=== PATIENT | male | born 1945 | race Caucasian/White ===

== ENCOUNTER 2020-05-05 14:36 | Outpatient (REF) | payer OTHER, SELFPAY ==
[2020-05-07 20:10] LABS: SARS-CoV-2 RNA Undetected (Undetected); SARS-CoV-2 Specimen Source Nasal
== END 2020-05-05 14:56 ==
LOC: NCHCN 14:36
PROVIDERS: Visit Provider Nurse Practitioner Family
DX: Z11.59 Encounter for screening for other viral diseases (principal)
CPT/HCPCS: U0003

== ENCOUNTER 2020-06-17 10:57 | Emergency (ER) | payer OTHER, SELFPAY ==
[2020-06-17] VITALS (23 sets, daily range): BP systolic 114–141; BP diastolic 53–75; PULSE 59–74; RESP 8–21; TEMP 36.6; O2SAT 96–99
--- NOTE | 2020-06-17 11:00 | RT.EKG_ITS ---
APPROVED REPORT Exam: Resting ECG Patient Location: E HR:64 bpm ECG Measurements Heart Rate 64 AXIS WA 33 P 0 QRSd 129 QRS 179 QT 435 T 96 QTc 449 Conclusion A-V dual-paced complexes w/ some inhibition...other complexes also detected Biventricular paced rhythm...non-simultaneous bi-vent pacing I have reviewed and interpreted ECG and agree with software generated interpretation.
--- NOTE | 2020-06-17 11:50 | ED.GENADUL_ITS ---
Discharge Plan Disposition Patient Disposition: [facility] Condition: Stable Discharge Details Chief Complaint: Palpitatns Clinical Impression: Ventricular fibrillation Primary Care Provider: Fabiola,Local ED Provider: Philip Harrison Home Meds and New Rx's Prescriptions: No Action metformin 500 mg Tablet 500 mg PO BID RF: 0 aspirin 325 mg Tablet 325 mg PO DAILY RF: 0 metoprolol succinate 50 mg Tablet Extended Release 24 Hr 75 mg PO DAILY RF: 0 losartan 25 mg Tablet 25 mg PO DAILY RF: 0 docusate sodium [Colace] 100 mg Capsule 100 mg PO DAILY RF: 0 isosorbide mononitrate 10 mg Tablet 15 mg PO DAILY RF: 0 coenzyme Q10 [Co Q-10] 100 mg Capsule 100 mg PO DAILY RF: 0 rosuvastatin [Crestor] 10 mg Tablet 10 mg PO DAILY RF: 0 Lovasa 1 BID RF: 0 Medical Decision Making 75-year-old gentleman presents at the request of his cardiology team in [place] because over the past week he has gone into V. fib twice requiring a by phasic shock from his dual pacemaker-defibrillator. He was asymptomatic when this happened, only felt the machine fire 1 time. He denies any chest pain whatsoever. He is currently asymptomatic. He appears well, nontoxic and is hemodynamically stable. Will initiate cardiac work-up and [facility] to discuss his case and potential transfer. I discussed the case with Sarah Singletary at 1210, cardiology transfer team. She will discuss the presentation with the rest of the cardiology team, await his troponin and electrolytes, and we will talk again. Laboratories resulted and were unremarkable. I once again spoke with Sarah Singletary at 1315. She states that she spoke with the color tester, Dr. Mathur, and he believes the patient should be transferred into their care for an ischemic work-up. The accepting physician will be Dr. Manriquez. All appropriate transfer paperwork completed. Patient remains hemodynamically stable and asymptomatic while under my care. Medical Records Medical records reviewed: Yes I reviewed the patient's medical records. Lab Data Lab results reviewed: Yes I reviewed the patient's lab results. Lab results narrative: Laboratory Tests Range/Units 06/17/20 06/17/20 06/17/20 12:00 12:00 12:00 WBC (4.4-10.8) 10^3/uL 6.59 RBC (4.36-5.78) 10^6/uL 4.43 Hgb (13.5-17.5) g/dL 14.0 Hct (40.0-50.0) % 40.7 MCV (80-95) fL 91.9 MCH (27.0-33.0) pg 31.6 MCHC (32.0-36.0) % 34.4 RDW (11.8-14.1) % 12.5 Plt Count (130-400) 10^3/uL 215 MPV (8.0-11.0) fL 10.3 Immature Gran % 0.5 Neutrophils % 67.9 Lymphocytes % 22.0 Monocytes % 6.4 Eosinophils % 2.4 Basophils % 0.8 Nucleated RBC % % 0 Absolute Neutrophils (1.2-6.7) 10^3/uL 4.48 Absolute Lymphocytes (1.2-3.4) 10^3/uL 1.45 Absolute Monocytes (0.1-0.8) 10^3/uL 0.42 Absolute Eosinophils (0.0-0.7) 10^3/uL 0.16 Absolute Basophils (0.0-0.2) 10^3/uL 0.05 PT (9.3-11.0) sec 10.5 INR (0.9-1.1) 1.0 APTT (21.0-27.5) sec 23.4 Sodium (136-145) mmol/L 136 Potassium (3.5-5.1) mmol/L 4.2 Chloride (98-107) mmol/L 103 Carbon Dioxide (21.0-32.0) mmol/L 28.5 Anion Gap (3-11) mmol/L 4.5 BUN (7-18) mg/dL 16 Creatinine (0.70-1.30) mg/dL 0.88 Estimated GFR/1.73 m2 (mL/min/1.73m2) >= 60.00 Glucose (74-106) mg/dL 151 H Calcium (8.5-10.1) mg/dL 8.6 Magnesium (1.8-2.4) mg/dL 1.8 Total Bilirubin (0.2-1.0) mg/dL 0.8 AST (15-37) U/L 20 ALT (16-63) U/L 21 Alkaline Phosphatase (46-116) U/L 42 L Troponin I (<0.06) ng/mL < 0.05 Total Protein (6.4-8.2) g/dL 6.9 Albumin (3.4-5.0) g/dL 3.7 ECG Data Attestation: I personally reviewed and interpreted this ECG (s) as follows: Interpretation: Please see official report by Dr. Pickens. AV dual paced complexes. Ventricular to 64. No STEMI. HPI General Mode of arrival: ambulatory . Date/Time Provider Initiated Documentation: 06/17/20 11:16 . Limitations to Documentation: no limitations . Information obtained by: patient . HPI Narrative: This is a 75-year-old gentleman, past medical history of diabetes, CAD, bypass x2, cardiac pacemaker- defibrillator placed approximately 10 years ago. He received a call from his cardiology team down in [place] who recommended that he go to the nearest ER because his pacemaker fired on June 12 and June 15. He states that he noticed the defibrillator on June 12 but not on June 15. He is currently asymptomatic. He states that prior to the defibrillation on the he was asymptomatic. He denies recent illness or trauma. Denies fever, neck pain, chest pain, shortness of breath, abdominal pain, nausea, vomiting, numbness, tingling, weakness. Related Data Home Medications Medication Instructions Recorded Confirmed Lovasa 1 BID 06/17/20 aspirin 325 mg PO DAILY 06/17/20 06/17/20 coenzyme Q10 [Co Q-10] 100 mg PO DAILY 06/17/20 06/17/20 docusate sodium [Colace] 100 mg PO DAILY 06/17/20 06/17/20 isosorbide mononitrate 15 mg PO DAILY 06/17/20 06/17/20 losartan 25 mg PO DAILY 06/17/20 06/17/20 metformin 500 mg PO BID 06/17/20 06/17/20 metoprolol succinate 75 mg PO DAILY 06/17/20 06/17/20 rosuvastatin [Crestor] 10 mg PO DAILY 06/17/20 06/17/20 Allergies Allergy/AdvReac Type Severity Reaction Status Date / Time No Known Allergies Allergy Unverified 06/17/20 11:15 General Stated Complaint: Palpitatns RAJESH: 2 Review of Systems Constitutional Constitutional: Denies fever(s), Denies headache(s) and Denies weakness ENT Ears, Nose, Mouth, and Throat: Denies headache(s) and Denies neck pain Cardiovascular Cardiovascular: Denies chest pain and Denies dyspnea Respiratory Respiratory: Denies cough and Denies dyspnea Gastrointestinal Gastrointestinal: Denies abdominal pain, Denies nausea and Denies vomiting Musculoskeletal Musculoskeletal: Denies back pain, Denies neck pain, Denies numbness and Denies tingling Integumentary/Breasts Skin/Breast: Denies rash Neurologic Neurologic: Denies headache(s), Denies numbness, Denies tingling and Denies weakness [facility] Social History Smoking/Tobacco Use Status: Never Smoking risk assessment performed?: Yes Alcohol Intake: never Substance use type: does not use Exam Const General: cooperative, healthy appearing, comfortable and no acute distress Orientation: alert, awake and oriented x3 HENMT Head: normal to inspection, normocephalic and atraumatic Eyes General: appearance normal, both eyes and all related structures Conjunctivae: conjunctivae normal Sclera: sclerae normal Neck Neck: normal visual inspection, full ROM, no meningeal signs, trachea midline and supple Resp Effort & Inspection: normal respiratory effort and able to speak in complete sentences Auscultation: clear to auscultation bilaterally Cardio Rate: regular rate Rhythm: regular rhythm GI Palpation: soft and nontender Auscultation: normal bowel sounds Back/Spine/Pelvis Back: No back tenderness Skin General skin exam: no rashes or lesions noted Neuro General: patient alert, patient awake, patient oriented x3, moves all extremities and no focal motor deficits Cognition: normal cognition Speech: speech normal Gait: normal gait Motor: muscle tone normal throughout Sensory Exam: no sensory deficits noted Extrem General: normal to inspection, full ROM, capillary refill normal, no pedal edema and no calf tenderness Psych Appearance: grossly normal Mental Status: mental status grossly normal Course Vital Signs Vital signs: Vital Signs Temperature 36.6 C 06/17/20 11:09 Pulse 61 06/17/20 11:09 Respiratory Rate 16 06/17/20 11:09 Blood Pressure 127/71 06/17/20 11:09 Pulse Oximetry 99 06/17/20 11:09 Temperature 36.6 C 06/17/20 11:09 Temperature Source Skin 06/17/20 11:09 Pulse 61 06/17/20 11:09 Respiratory Rate 16 06/17/20 11:09 Respiratory Effort Non-Labored 06/17/20 11:09 Blood Pressure 127/71 06/17/20 11:09 Blood Pressure Position Supine 06/17/20 11:09 Pulse Oximetry 99 06/17/20 11:09 Oxygen Delivery Method Room Air 06/17/20 11:09 Oxygen Flow Rate 0 06/17/20 11:09 Pain Level 0 06/17/20 11:09
[2020-06-17 12:31] LABS: Abs Immature Grans 0.03 10^3/uL (0.0-0.06); Absolute Basophil Count 0.05 10^3/uL (0.0-0.2); Absolute Eosinophil Count 0.16 10^3/uL (0.0-0.7); Absolute Lymphocyte Count 1.45 10^3/uL (1.2-3.4); Absolute Monocyte Count 0.42 10^3/uL (0.1-0.8); Absolute Neutrophil Count 4.48 10^3/uL (1.2-6.7); Basophils % 0.8; Eosinophils % 2.4; HCT 40.7 % (40.0-50.0); Immature Grans % 0.5; MCH 31.6 pg (27.0-33.0); MCHC 34.4 % (32.0-36.0); MCV 91.9 fL (80-95); MPV 10.3 fL (8.0-11.0); Monocytes % 6.4; Neutrophils % 67.9; Nucleated RBC 0 %; Platelet Count 215 10^3/uL (130-400); RBC 4.43 10^6/uL (4.36-5.78); RDW 12.5 % (11.8-14.1); RDW-SD 41.8 fL; WBC 6.59 10^3/uL (4.4-10.8)
[2020-06-17 12:39] LABS: PTT Activated 23.4 sec (21.0-27.5); Prothrombin Time 10.5 sec (9.3-11.0)
[2020-06-17 12:46] LABS: ALT 21 U/L (16-63); AST 20 U/L (15-37); Albumin 3.7 g/dL (3.4-5.0); Alkaline Phosphatase 42 U/L (46-116); Anion Gap 4.5 mmol/L (3-11); BUN 16 mg/dL (7-18); Bilirubin, Total 0.8 mg/dL (0.2-1.0); CO2 28.5 mmol/L (21.0-32.0); CREATININE 0.88 mg/dL (0.70-1.30); Calcium 8.6 mg/dL (8.5-10.1); Chloride 103 mmol/L (98-107); Glucose 151 mg/dL (74-106); Magnesium 1.8 mg/dL (1.8-2.4); Potassium 4.2 mmol/L (3.5-5.1); Sodium 136 mmol/L (136-145); Total Protein 6.9 g/dL (6.4-8.2); Troponin I < 0.05 ng/mL (<0.06)
--- NOTE | 2020-06-17 14:52 | NUR.NOTE ---
pt awake and alert. no episodes of discomfort noted since arrival. full meal eaten for lunch. pt reading at this time. awaiting transfer to [facility]:
== END 2020-06-17 15:46 | disposition short-term general hospital (02) ==
PROVIDERS: Emergency Provider Physician Assistant
DX: I49.01 Ventricular fibrillation (principal); E11.9 Type 2 diabetes mellitus without complications; Z79.84 Long term (current) use of oral hypoglycemic drugs; Z95.810 Presence of automatic (implantable) cardiac defibrillator; I25.10 Atherosclerotic heart disease of native coronary artery without angina pectoris; Z95.1 Presence of aortocoronary bypass graft
CPT/HCPCS: 36415; 80053; 93005; 99285; 83735; 84484; 85025; 85610; 85730; 93010

== ENCOUNTER 2020-07-10 17:23 | Emergency (ER) | payer OTHER, SELFPAY ==
[2020-07-10] VITALS (29 sets, daily range): BP systolic 104–148; BP diastolic 58–75; PULSE 59–66; RESP 5–19; TEMP 36.6; O2SAT 93–99
--- NOTE | 2020-07-10 17:15 | RT.EKG_ITS ---
APPROVED REPORT Exam: Resting ECG Patient Location: E HR:60 bpm ECG Measurements Heart Rate 60 AXIS AK 168 P 117 QRSd 143 QRS 254 QT 463 T 83 QTc 463 Conclusion Atrial-ventricular dual-paced rhythm Biventricular paced rhythm...non-simultaneous bi-vent pacing
[2020-07-10] MEDS: Normal Saline Flush 10 ML SYR IVP (18:15)
[2020-07-10 18:26] LABS: Abs Immature Grans 0.04 10^3/uL (0.0-0.06); Absolute Basophil Count 0.06 10^3/uL (0.0-0.2); Absolute Eosinophil Count 0.16 10^3/uL (0.0-0.7); Absolute Lymphocyte Count 1.85 10^3/uL (1.2-3.4); Absolute Monocyte Count 0.53 10^3/uL (0.1-0.8); Basophils % 0.6; Eosinophils % 1.7; HGB 14.8 g/dL (13.5-17.5); Immature Grans % 0.4; Lymphocytes % 19.4; MCH 32.1 pg (27.0-33.0); MCHC 35.2 % (32.0-36.0); MCV 91.1 fL (80-95); MPV 10.1 fL (8.0-11.0); Monocytes % 5.6; Neutrophils % 72.3; Nucleated RBC 0 %; Platelet Count 215 10^3/uL (130-400); RBC 4.61 10^6/uL (4.36-5.78); RDW 12.5 % (11.8-14.1); RDW-SD 41.3 fL; WBC 9.54 10^3/uL (4.4-10.8)
[2020-07-10 18:47] LABS: ALT 27 U/L (16-63); AST 20 U/L (15-37); Albumin 3.8 g/dL (3.4-5.0); Alkaline Phosphatase 45 U/L (46-116); Anion Gap 6.3 mmol/L (3-11); BUN 16 mg/dL (7-18); Bilirubin, Total 0.6 mg/dL (0.2-1.0); CO2 28.7 mmol/L (21.0-32.0); Chloride 101 mmol/L (98-107); Glucose 131 mg/dL (74-106); Magnesium 1.6 mg/dL (1.8-2.4); Potassium 4.7 mmol/L (3.5-5.1); Sodium 136 mmol/L (136-145); TSH (W/Ref FT4) 3.11 uIU/mL (0.36-3.74); Total Protein 7.4 g/dL (6.4-8.2)
[2020-07-10 18:50] LABS: Troponin I < 0.05 ng/mL (<0.06)
--- NOTE | 2020-07-10 18:53 | ED.GENADUL_ITS ---
Discharge Plan Disposition Patient Disposition: [facility] Condition: Serious Discharge Details Clinical Impression: Ventricular tachycardia Primary Care Provider: Fabiola,Local ED Provider: True Chen Home Meds and New Rx's Prescriptions: No Action metformin 500 mg Tablet 500 mg PO BID RF: 0 metoprolol succinate 50 mg Tablet Extended Release 24 Hr 75 mg PO DAILY RF: 0 losartan 25 mg Tablet 25 mg PO DAILY RF: 0 docusate sodium [Colace] 100 mg Capsule 100 mg PO DAILY RF: 0 isosorbide mononitrate 10 mg Tablet 15 mg PO DAILY RF: 0 coenzyme Q10 [Co Q-10] 100 mg Capsule 100 mg PO DAILY RF: 0 rosuvastatin [Crestor] 10 mg Tablet 5 mg PO DAILY RF: 0 Lovasa 1 BID RF: 0 amiodarone 200 mg Tablet 200 mg PO DAILY RF: 0 aspirin [Aspir-81] 81 mg Tablet,Delayed Release (Dr/Ec) 81 mg PO DAILY RF: 0 Discharge Data Discharge Date/Time-TO BE ENTERED AT DEPARTURE: 07/10/20 20:10 Medical Decision Making <True Chen MD - Last Filed: 07/10/20 21:04> 1900??75-year-old male with history of coronary artery disease, ventricular arrhythmia and AICD placement, patient hospitalization at [facility] for ventricular arrhythmia and AICD discharge, now on amiodarone, had episode of palpitations and presyncope last night, telemetry from his head interpreted by his business liaison manager as ventricular tachycardia. Patient is now hemodynamically stable with V paced rhythm. Labs reviewed and hypomagnesemia noted mild, 1.6. Will give magnesium 1 g IV. Plan to consult [facility] cardiology. I called [facility] transfer center and requested consultation. 1927 --I spoke with Dr. Pimentel at [facility], discussed ED presentation and course, he agrees to accept the patient on behalf of Dr. Linda as the accepting physician. <Carrington Moraes MD - Last Filed: 07/10/20 21:21> Patient transferred out prior to me taking sign out. HPI <True Chen MD - Last Filed: 07/10/20 21:04> General Mode of arrival: ambulatory . Date/Time Provider Initiated Documentation: 07/10/20 17:45 . Limitations to Documentation: no limitations . Information obtained by: patient . HPI Narrative: 75yo m with history of coronary artery disease, ventricular arrhythmia, status post pacemaker defibrillator, here with chief complaint of arrhythmia. Patient notes that last night he had an episode of dizziness that was severe lasting minutes. He felt like he was in a pass out and laid down on the ground. He experienced palpitations during this time. No chest pain and no defibrillation. Remote monitoring of the event was interpreted by his business liaison manager at [facility] who noted he had an episode of ventricular tachycardia. His business liaison manager recommended that he come to the emergency department to be transferred to [facility]. Related Data Home Medications Medication Instructions Recorded Confirmed Lovasa 1 BID 06/17/20 coenzyme Q10 [Co Q-10] 100 mg PO DAILY 06/17/20 07/10/20 docusate sodium [Colace] 100 mg PO DAILY 06/17/20 07/10/20 isosorbide mononitrate 15 mg PO DAILY 06/17/20 07/10/20 losartan 25 mg PO DAILY 06/17/20 07/10/20 metformin 500 mg PO BID 06/17/20 07/10/20 metoprolol succinate 75 mg PO DAILY 06/17/20 07/10/20 rosuvastatin [Crestor] 5 mg PO DAILY 06/17/20 07/10/20 amiodarone 200 mg PO DAILY 07/10/20 07/10/20 aspirin [Aspir-81] 81 mg PO DAILY 07/10/20 07/10/20 Allergies Allergy/AdvReac Type Severity Reaction Status Date / Time No Known Allergies Allergy Unverified 07/10/20 17:35 General Stated Complaint: Palpitatns RAJESH: 2 Review of Systems <True Chen MD - Last Filed: 07/10/20 21:04> All systems reviewed & are unremarkable except as noted in HPI and below Constitutional Constitutional: Denies fever(s) Cardiovascular Cardiovascular: Reports as per HPI and Denies dyspnea Respiratory Respiratory: Denies dyspnea PFSH <True Chen MD - Last Filed: 07/10/20 21:04> Medical History (Updated 07/10/20 @ 19:30 by True Chen MD) Coronary artery disease Surgical History (Updated 07/10/20 @ 18:58 by True Chen MD) AICD (automatic cardioverter/defibrillator) present Social History Smoking/Tobacco Use Status: Never Smoking risk assessment performed?: Yes Alcohol Intake: never Substance use type: does not use Do you feel safe at home: Yes Do you feel safe in your relationship?: Yes Exam <True Chen MD - Last Filed: 07/10/20 21:04> Const General: cooperative and no acute distress HENMT Mouth: moist mucous membranes Eyes Conjunctivae: normal conjunctivae Sclera: normal sclerae Neck Neck: trachea midline and supple Resp Auscultation: clear to auscultation bilaterally, no rales, no rhonchi and no wheezes Cardio Rate: regular rate and not tachycardic Rhythm: regular rhythm GI Palpation: soft, not firm, no guarding, no masses, not rigid and nontender Skin General skin exam: no rashes or lesions noted Neuro General: patient alert, patient awake and tone normal Extrem General: no calf tenderness and no edema Psych Appearance: grossly normal Mental Status: mental status grossly normal Course <True Chen MD - Last Filed: 07/10/20 21:04> Vital Signs Vital signs: Vital Signs Respiratory Rate 19 07/10/20 17:28 Pulse Oximetry 97 07/10/20 17:28 Temperature 36.6 C 07/10/20 17:29 Temperature Source Temporal Artery Scan 07/10/20 17:29 Pulse 60 07/10/20 18:11 Pulse 60 07/10/20 18:11 Respiratory Rate 12 07/10/20 18:10 Respiratory Effort Non-Labored 07/10/20 17:33 Blood Pressure 124/63 07/10/20 18:11 Blood Pressure Mean 78 07/10/20 18:11 Blood Pressure Position Sitting 07/10/20 17:29 Pulse Oximetry 96 07/10/20 18:11 Oxygen Delivery Method Cpap 07/10/20 17:29 Oxygen Flow Rate 0 07/10/20 17:29 Pain Level 0 07/10/20 17:29 Lab/Test Results Lab/Test Results: Laboratory Tests Range/Units 07/10/20 07/10/20 18:15 18:15 WBC (4.4-10.8) 10^3/uL 9.54 RBC (4.36-5.78) 10^6/uL 4.61 Hgb (13.5-17.5) g/dL 14.8 Hct (40.0-50.0) % 42.0 MCV (80-95) fL 91.1 MCH (27.0-33.0) pg 32.1 MCHC (32.0-36.0) % 35.2 RDW (11.8-14.1) % 12.5 Plt Count (130-400) 10^3/uL 215 MPV (8.0-11.0) fL 10.1 Immature Gran % 0.4 Neutrophils % 72.3 Lymphocytes % 19.4 Monocytes % 5.6 Eosinophils % 1.7 Basophils % 0.6 Nucleated RBC % % 0 Absolute Neutrophils (1.2-6.7) 10^3/uL 6.90 H Absolute Lymphocytes (1.2-3.4) 10^3/uL 1.85 Absolute Monocytes (0.1-0.8) 10^3/uL 0.53 Absolute Eosinophils (0.0-0.7) 10^3/uL 0.16 Absolute Basophils (0.0-0.2) 10^3/uL 0.06 Sodium (136-145) mmol/L 136 Potassium (3.5-5.1) mmol/L 4.7 Chloride (98-107) mmol/L 101 Carbon Dioxide (21.0-32.0) mmol/L 28.7 Anion Gap (3-11) mmol/L 6.3 BUN (7-18) mg/dL 16 Creatinine (0.70-1.30) mg/dL 1.0 Estimated GFR/1.73 m2 (mL/min/1.73m2) >= 60.00 Glucose (74-106) mg/dL 131 H Calcium (8.5-10.1) mg/dL 9.0 Magnesium (1.8-2.4) mg/dL 1.6 L Total Bilirubin (0.2-1.0) mg/dL 0.6 AST (15-37) U/L 20 ALT (16-63) U/L 27 Alkaline Phosphatase (46-116) U/L 45 L Troponin I (<0.06) ng/mL < 0.05 Total Protein (6.4-8.2) g/dL 7.4 Albumin (3.4-5.0) g/dL 3.8 TSH (0.36-3.74) uIU/mL 3.11
[2020-07-10] MEDS: Normal Saline 500 ML IV (19:05)
[2020-07-10] MEDS: MAGNESIUM SULFATE 1 GM/100 ML BAG IVPB (19:19)
== END 2020-07-10 20:10 | disposition short-term general hospital (02) ==
PROVIDERS: Emergency Provider Student in an Organized Health Care Education/Training Program
DX: I47.2 Ventricular tachycardia (principal); R55 Syncope and collapse; E83.42 Hypomagnesemia; I25.10 Atherosclerotic heart disease of native coronary artery without angina pectoris; Z95.810 Presence of automatic (implantable) cardiac defibrillator
CPT/HCPCS: 36415; 80053; 93005; 96361; 96365; 99285; 83735; 84443; 84484; 85025; 93010; J3475

== ENCOUNTER → 2020-07-16 14:16 | Outpatient (BNVA) | payer OTHER, SELFPAY | PROVIDERS: Visit Provider Internal Medicine Cardiovascular Disease | DX: I47.2 Ventricular tachycardia (principal); Z45.02 Encounter for adjustment and management of automatic implantable cardiac defibrillator; Z79.899 Other long term (current) drug therapy | CPT/HCPCS: 93288; 99204; 99215; G2212 ==

== ENCOUNTER 2020-07-22 01:59 | Outpatient (CLI) | payer OTHER, SELFPAY ==
[2020-07-23 15:20] LABS: COVID-19 RT-PCR UVMMC Result Negative (Negative)
== END 2020-07-22 02:00 | disposition home or self-care (01) ==
LOC: LBO 02:00
PROVIDERS: Visit Provider Family Medicine
DX: Z20.822 Contact with and (suspected) exposure to COVID-19 (principal)
CPT/HCPCS: U0003

== ENCOUNTER 2020-07-25 00:37 | Outpatient (CLI) | payer OTHER, SELFPAY ==
[2020-07-25] MEDS: Inhaler, Assist Device 1 EACH MC (11:19)
[2020-07-25] MEDS: Albuterol HFA 18 GM 200 PUFF INH IH (11:19)
--- NOTE | 2020-07-28 08:10 | W.PFT ---
Date of service: 07/25/20 Time of Service: 10:10 Pulmonary Function Test Result Interpretation Spirometry: Moderately severe obstructive airways disease with significant bronchodilator response Lung Volumes: No evidence of restriction Diffusion Capacity: Moderately reduced, this is mildly reduced when corrected to alveolar volume Airway Pressure: Elevated Impression Moderately severe obstructive airways disease with significant bronchodilator response, this is associated with moderately severe diffusion defect Clinical Correlation therefore is recommended.
== END 2020-07-25 00:38 | disposition home or self-care (01) ==
LOC: RT 00:38
PROVIDERS: Visit Provider Internal Medicine Cardiovascular Disease
DX: J44.9 Chronic obstructive pulmonary disease, unspecified (principal); R94.2 Abnormal results of pulmonary function studies
CPT/HCPCS: 94060; 94726; 94729

== ENCOUNTER → 2020-07-28 08:36 | Outpatient (BNVA) | payer OTHER, SELFPAY | PROVIDERS: Visit Provider Internal Medicine Cardiovascular Disease | DX: Z95.1 Presence of aortocoronary bypass graft (principal); I25.5 Ischemic cardiomyopathy; I47.2 Ventricular tachycardia; Z95.810 Presence of automatic (implantable) cardiac defibrillator | CPT/HCPCS: 99204; 99214 ==

== ENCOUNTER 2020-07-30 19:11 | Outpatient (CLI) | payer OTHER, SELFPAY ==
--- NOTE | 2020-07-25 11:27 | DI.RAD_ITS ---
EXAM: XR CHEST 2V PA LATERAL CLINICAL HISTORY: H/O CORONARY BYPASS GRAFT X2,Z95.1 TECHNIQUE: 2D digital imaging was performed. COMPARISON: No exams were available for comparison FINDINGS: Heart is mildly enlarged. Sternal wires and mediastinal clips are noted. Pacemaker is present. The lungs appear clear. Degenerative changes are seen in the spine. IMPRESSION: No acute pulmonary findings. DATA REPOSITORY: RADIATION DOSE DELIVERED:
== END 2020-07-30 19:12 ==
LOC: DI 19:13
PROVIDERS: PCP Internal Medicine; Visit Provider Internal Medicine
DX: I51.7 Cardiomegaly (principal); Z95.1 Presence of aortocoronary bypass graft; Z95.0 Presence of cardiac pacemaker
CPT/HCPCS: 71046

== ENCOUNTER 2020-09-02 03:52 | Outpatient (CLI) | payer OTHER, SELFPAY ==
[2020-09-02 15:34] LABS: ALT 34 U/L (16-63); AST 16 U/L (15-37); Albumin 3.9 g/dL (3.4-5.0); Alkaline Phosphatase 51 U/L (46-116); Anion Gap 10.4 mmol/L (3-11); BUN 15 mg/dL (7-18); Bilirubin, Total 0.6 mg/dL (0.2-1.0); CO2 29.6 mmol/L (21.0-32.0); CREATININE 0.9 mg/dL (0.70-1.30); Chloride 102 mmol/L (98-107); Glucose 139 mg/dL (74-106); Potassium 4.4 mmol/L (3.5-5.1); Sodium 142 mmol/L (136-145); TSH (W/Ref FT4) 2.88 uIU/mL (0.36-3.74); Total Protein 7.5 g/dL (6.4-8.2)
== END 2020-09-02 03:53 | disposition home or self-care (01) ==
LOC: LBO 03:52
PROVIDERS: PCP Internal Medicine; Visit Provider Internal Medicine Cardiovascular Disease
DX: I47.2 Ventricular tachycardia (principal); I25.5 Ischemic cardiomyopathy; Z79.899 Other long term (current) drug therapy
CPT/HCPCS: 80053; 84443

== ENCOUNTER → 2020-09-05 11:11 | Outpatient (BNVA) | payer OTHER, SELFPAY | PROVIDERS: PCP Internal Medicine; Visit Provider Internal Medicine Cardiovascular Disease | DX: I25.5 Ischemic cardiomyopathy (principal); Z95.1 Presence of aortocoronary bypass graft; Z95.810 Presence of automatic (implantable) cardiac defibrillator; R25.1 Tremor, unspecified | CPT/HCPCS: 99214; 99213 ==

== ENCOUNTER → 2020-11-11 09:49 | Outpatient (BNVA) | payer OTHER, SELFPAY | PROVIDERS: PCP Internal Medicine; Referring Provider Internal Medicine Cardiovascular Disease; Visit Provider Psychiatry & Neurology Neurology | DX: G95.9 Disease of spinal cord, unspecified (principal); R25.1 Tremor, unspecified; R20.2 Paresthesia of skin; R41.9 Unspecified symptoms and signs involving cognitive functions and awareness; Z95.0 Presence of cardiac pacemaker | CPT/HCPCS: 99215; G2212 ==

== ENCOUNTER 2020-11-20 01:39 | Outpatient (CLI) | payer OTHER, SELFPAY ==
--- NOTE | 2020-11-20 13:02 | DI.CT_ITS ---
Exam(s) CT HEAD WO EXAM: CT HEAD WO CLINICAL HISTORY: cognitive changes,r41.9. TECHNIQUE: Imaging Protocol: Axial computed tomography images with coronal and sagittal reformatted images were created and reviewed COMPARISON: No exams were available for comparison FINDINGS: No acute infarct, hemorrhage or mass is seen. There is moderate atrophy. The ventricles are within normal limits of size for degree of atrophy. There is an area of encephalomalacia in the left superi or parietal region. Additional area of encephalomalacia is seen in the right parietal region. No ac nooksack infarct, hemorrhage or mass is seen. There is an old left basal ganglia lacunar infarct. Mucous retention cysts versus polyps are noted in the maxillary sinuses. The mastoid air cells are clear. IMPRESSION: No acute intracranial process.Atrophy and old bilateral areas of encephalomalacia. RADIATION DOSE DELIVERED: 796.13mGy.cm Total DLP DATA REPOSITORY: All CT scans at this facility are submitted to the National Radiology Data Registry (NRDR) Dose Index Registry (DIR) with the [employer] ([employer]). RADIATION OPTIMIZATION: All CT scans at this facility use at least one of these dose optimization te chniques: automated exposure control; mA and/or kV adjustment per patient size (includes targeted exa ms where dose is matched to clinical indication); or iterative reconstruction.
== END 2020-11-20 01:59 ==
PROVIDERS: PCP Internal Medicine; Visit Provider Psychiatry & Neurology Neurology
DX: R41.9 Unspecified symptoms and signs involving cognitive functions and awareness (principal); G31.89 Other specified degenerative diseases of nervous system
CPT/HCPCS: 70450

== ENCOUNTER 2020-12-02 01:45 | Outpatient (CLI) | payer OTHER, SELFPAY ==
--- NOTE | 2020-12-02 08:45 | DI.US_ITS ---
Exam(s) US CAROTID EXAM: US CAROTID CLINICAL HISTORY: evidence of old bilateral strokes,CVA,I63.9 TECHNIQUE: Ultrasound performed using standard protocol. COMPARISON: No exams were available for comparison FINDINGS: Duplex evaluation of carotid circulation was performed according to the usual protocol. There is mil d visible atheromatous plaque in the carotid bifurcations bilaterally. Flow velocities in the common , internal, and external carotid arteries are within normal limits bilaterally. There is bilateral antegrade vertebral flow. IMPRESSION: No evidence of a hemodynamically significant carotid stenosis. DATA REPOSITORY:
== END 2020-12-02 02:05 ==
PROVIDERS: PCP Internal Medicine; Visit Provider Psychiatry & Neurology Neurology
DX: I63.9 Cerebral infarction, unspecified (principal)
CPT/HCPCS: 93880

== ENCOUNTER 2020-12-08 01:46 | Outpatient (CLI) | payer OTHER, SELFPAY ==
--- NOTE | 2020-12-08 08:15 | DI.CT_ITS ---
Exam(s) CT CERVICAL SPINE WO EXAM: CT CERVICAL SPINE WO CLINICAL HISTORY: imbalance; new UMN si since C4-7 laminoplasty 2017, CERVICAL MYELOPATHY, G9. TECHNIQUE: Imaging Protocol: Axial computed tomography images with coronal and sagittal reformatted images were created and reviewed COMPARISON: CT CT HEAD WO from 11/20/2020 FINDINGS: CERVICAL SPINE: Incidentally noted in the field of view of this study is some infiltrate in the posterior aspect of t he right upper lobe, this abutting the upper aspect of the major fissure. There are cardiac pacemake r wires noted. There are contiguous left-sided 4 level laminectomies evident at C 3-4, 4-5, C5-6, and C6-7 levels. There is also been removal of the spinous process is at these levels. There is straightening and slight reversal of the curvature of the cervical spine. There is advanced disc space narrowing at C 2-3, C4-5, C5-6 and C6-7 levels. There is no evidence of fracture. Individual levels: C2-3: No obvious disc herniation. Central canal dimensions lower normal. Small bilateral Luschka isiah int osteophytes. Mild foraminal stenosis bilaterally. C3-4: Anterior osteophytes. Mild-moderate disc space narrowing. Left laminectomy with bridging hard herrera. Central canal dimensions within normal limits. C4-5: Advanced disc space narrowing. No obvious disc herniation. Left laminectomy with similar plat e hardware to all the other levels. Canal dimensions are lower normal. Small Luschka joint osteophy susan bilaterally. Mild foraminal stenosis. C5-6: There is complete elimination of the disc space at this level.. No herniated disc material. L eft laminectomy with similar plate hardware to the other levels. No central canal stenosis. Bilater al Luschka joint osteophytes. Mild bilateral foraminal stenosis C6-7: Advanced disc space narrowing. No central canal stenosis. Small-moderate sized bilateral Lusc hka joint osteophytes. Moderate bilateral foraminal stenosis. IMPRESSION: There been multilevel left laminectomies at C3-4, C4-5, C5-6, and C6-7 levels as well as removal of t he spinous processes at these levels. No evidence of hardware fracture nor loosening. No obvious ra diographic evidence of osteomyelitis. Multilevel chronic degenerative disc disease at these levels. No obvious herniated disc, realizing l imitations of CT study for determining disc herniations. Central canal dimensions are within normal limits at these levels. There is multilevel bilateral foraminal stenosis. This related to multilevel bilateral Luschka joint osteophytes. Compounded by disc height loss at these levels. Right lung infiltrate noted in the right upper lobe which is partially included in the field of view of this cervical spine study. RADIATION DOSE DELIVERED: 693.55mGy.cm Total DLP DATA REPOSITORY: All CT scans at this facility are submitted to the National Radiology Data Registry (NRDR) Dose Index Registry (DIR) with the [employer] (ACR). RADIATION OPTIMIZATION: All CT scans at this facility use at least one of these dose optimization te chniques: automated exposure control; mA and/or kV adjustment per patient size (includes targeted exa ms where dose is matched to clinical indication); or iterative reconstruction.
== END 2020-12-08 02:06 ==
PROVIDERS: PCP Internal Medicine; Visit Provider Psychiatry & Neurology Neurology
DX: R26.89 Other abnormalities of gait and mobility (principal); M50.01 Cervical disc disorder with myelopathy, high cervical region; M48.02 Spinal stenosis, cervical region; R91.8 Other nonspecific abnormal finding of lung field; Z98.890 Other specified postprocedural states; Z95.0 Presence of cardiac pacemaker
CPT/HCPCS: 72125

== ENCOUNTER 2020-12-25 02:10 | Outpatient (CLI) | payer OTHER, SELFPAY ==
--- NOTE | 2020-12-25 09:16 | DI.CT_ITS ---
Exam(s) CT CHEST W EXAM: CT CHEST W CLINICAL HISTORY: RUL abnormality seen on CT neck,R91.8. TECHNIQUE: Multi planar reconstructions were performed. CONTRAST MATERIAL: Omnipaque 350; 75 cc COMPARISON: CR XR CHEST 2V PA LATERAL from 07/25/[address] CERVICAL SPINE WO from 12/08/[address] scan was reviewed FINDINGS: CHEST: LUNGS: There is infiltrate in the posterior segment of the right upper lobe, this corresponding to wh at was seen incidentally on the lower most images of the recent cervical spine CT scan. Slightly low er down in the right lung there is also some infiltrate in the superior segment of the right lower lo be. Mild increased markings are noted in the basal segments of the right lower lobe as well as subpl eural density in the posterior basal segment pleural base which measures 8 x 7 millimeters. There is no pleural effusion. In the opposite-left lung there is very subtle ground-glass infiltrate in the left lower lobe anterio r basal segment. There is also smooth elliptical pleural thickening evident over the posterior basal segment of the left lower lobe, not associated with rib destruction. No other left lung findings no r pleural effusion. There are no significant focal findings in trachea and mainstem bronchi. MEDIASTINUM: There is no hilar nor mediastinal adenopathy. Visualized thyroid unremarkable. CARDIAC: There is sternotomy wires and left subclavian pacemaker. Mild cardiomegaly. No pericardial effusion. Thoracic aorta is atherosclerotic but not dilated. No dissection. VISUALIZED UPPER ABDOMEN:There are no significant adrenal masses. OSSEOUS: No significant osseous lesions.. IMPRESSION: 1. Areas of infiltrate bilaterally as described above, more prominent in the right lung but some find ings also evident in the left lung. Follow-up to resolution is recommended to rule out neoplasm. Th ere are no pleural effusions. No intrathoracic adenopathy evident. 2. Cardiomegaly. Sternotomy wires. Left subclavian pacemaker. 3. No significant osseous lesions evident in the field of view of this study RADIATION DOSE DELIVERED: 475.15mGy.cm Total DLP DATA REPOSITORY: All CT scans at this facility are submitted to the National Radiology Data Registry (NRDR) Dose Index Registry (DIR) with the [employer] (ACR). RADIATION OPTIMIZATION: All CT scans at this facility use at least one of these dose optimization te chniques: automated exposure control; mA and/or kV adjustment per patient size (includes targeted exa ms where dose is matched to clinical indication); or iterative reconstruction.
[2020-12-25] MEDS: Omnipaque 350 MG/ML 100 ML BTL 70 ML IV (14:17)
[2020-12-25] MEDS: Normal Saline - Diluent 50 ML VIAL IV (14:18)
[2020-12-26 21:36] LABS: Vitamin B12 208 pg/mL (193-986)
== END 2020-12-25 02:30 ==
LOC: DI 02:10
PROVIDERS: PCP Internal Medicine; Visit Provider Psychiatry & Neurology Neurology
DX: R91.8 Other nonspecific abnormal finding of lung field; I51.7 Cardiomegaly; Z95.0 Presence of cardiac pacemaker
CPT/HCPCS: 71260; 82565; 82607; J3490

== ENCOUNTER → 2021-01-14 12:24 | Outpatient (BNVA) | payer OTHER, SELFPAY | PROVIDERS: PCP Internal Medicine; Referring Provider Internal Medicine; Visit Provider Psychiatry & Neurology Neurology | DX: G56.03 Carpal tunnel syndrome, bilateral upper limbs (principal); G95.9 Disease of spinal cord, unspecified; R25.1 Tremor, unspecified; R41.9 Unspecified symptoms and signs involving cognitive functions and awareness; R20.2 Paresthesia of skin; R91.8 Other nonspecific abnormal finding of lung field | CPT/HCPCS: 99215 ==

== ENCOUNTER 2021-02-06 03:38 | Outpatient (CLI) | payer OTHER, SELFPAY ==
--- NOTE | 2021-02-06 07:30 | DI.US_ITS ---
APPROVED REPORT EXAM: Comprehensive 2D, Doppler, and color-flow Echocardiogram Patient Location: Out-Patient Mail Order Sorter: Janessa Norris RDCS (AE) Indications: Ischemic Cardiomyopathy Other Information Study Quality: Adequate Conclusion Mildly dilated left ventricle. Normal left ventricular wall thickness. Estimated ejection fraction is 35% with global hypokinesis Normal right ventricular size. Grossly normal right ventricular systolic function. Device lead note d in the right ventricle Both atria are normal in size. Device lead noted in the right atrium Trileaflet aortic valve with trace to mild regurgitation Thickened mitral leaflets, mild mitral regurgitation Normal tricuspid valve with mild regurgitation Trace physiologic pulmonic regurgitation Mildly dilated ascending aorta Wall motion Left Ventricle Left ventricle is mildly dilated. Left ventricular systolic function is moderately decreased. There i s normal left ventricular wall thickness. There is global hypokinesis of the left ventricle. There is no ventricular septal defect visualized. LVEF is 35%. LVEF is 35%. Right Ventricle Right ventricle is grossly normal in size. Right ventricular systolic function is grossly normal. The RVSP is 26.4mmHg. Device lead is present in the right ventricle. Atria The left atrium size is normal. The right atrium size is normal. The interatrial septum is intact wit h no evidence for an atrial septal defect. Aortic Valve The aortic valve is normal in structure. Aortic valve is trileaflet. There is no aortic valvular sten osis. Trace to mild aortic regurgitation. Mitral Valve Mitral valve leaflets are thickened. No evidence of mitral valve stenosis. Mild mitral regurgitation. Bioprosthetic mitral valve appears normal. Tricuspid Valve The tricuspid valve is normal in structure. There is no tricuspid valve stenosis. Mild tricuspid regu rgitation. Pulmonic Valve Pulmonic valve is not well visualized. There is no pulmonic valvular stenosis. Trace pulmonic regurgi tation. Great Vessels The aortic root is normal in size. The ascending aorta is mildly dilated. Aortic arch is not well vis ualized. The IVC collapses <50% with inspiration. Pericardium There is no pericardial effusion. 2D Dimensions IVSD d PLAX 1.03 cm M: 0.6-1.2 LV Vol A2C d MOD 131.7 mL LVPW d PLAX 1.00 cm M: 0.6 - 1.2 LV Vol A4C d MOD 108.4 mL LVID d PLAX 6.00 cm M: 4.2 - 5.8 LA vol/ BSA A2C s A-L 27.6 mL/m2 LVDs 5.00 cm M: 2.5 - 4.0 LA vol/ BSA A4C s A-L 18.9 mL/m2 Ao Root d 3.15 cm M: 3.1 - 3.7 LA Vol/ BSA Biplane s A-L 23.9 mL/m2 RA Area A4C 16.57 cm2 LA Area A4C s MOD 14.13 cm2 RA Vol/ BSA A4C s A-L 23.6 mL/m2 LA Area A2C s MOD 16.30 cm2 LV EF Teichholz 33.8 % LV EF A4C MOD 33.6 % LVEF (Belle[facility]) 28.53 % M: 52 - 72 LV EF A2C MOD 30.2 % LV Volume 93.60 mL M: 62 - 150 LV EF Biplane MOD 28.5 % LV Volume Index 51.71 mL/m2 M: 34 - 74 SV 34.40 mL LV Vol Biplane MOD 120.6 mL SV Index 19.01 mL/m2 FS 16.35 % M-Mode TAPSE 1.18 cm (M/F) >1.7 LV Diastology MV E' medial 0.069 (>0.07 m/s) E/A Ratio 0.7 LV E/e MED 5.95 (<14) MV E Vmax 0.42 (0.4-1.3 m/s) MV E' lateral 0.053 (>0.1 m/s) MV A Vmax 0.60 (0.4-1.3 m/s) LV E/e LAT 7.85 (<14) MV E/A Ratio 0.68 MV E/E' medial 5.99 MV E/E' lateral 7.87 Aortic Valve LVOT Area 2.72 cm2 AoV Area Vmax 2.30 cm2 LVOT Vmax 0.87 m/s AoV Area/ BSA (Vmax) 1.27 cm2/m2 LVOT Mean Ramos. 0.54 m/s ELOISE Mean Ramos. 2.11 cm2 LVOT Peak Grad 3.0 mmHg ELOISE Mean Ramos. Index 1.17 cm2/m2 LVOT Mean Grad 1.4 mmHg AR DT 3578 msec LVOT VTI 0.156 m AR PHT 1038 msec LVOT Diam s 1.85 cm AoV Vmax 1.03 m/s Velocity Ratio 0.84 AoV Mean Ramos. 0.69 m/s AoV Peak Grad 4.2 mmHg LVOT SV 42.29 mL AoV Mean Grad 2.2 mmHg AoV VTI 0.167 m AoV Area VTI 2.54 cm2 AoV Area/ BSA (VTI) 1.40 cm/m2 Mitral Valve MV DT 314 (160-240 msec) MR Vmax 3.70 m/s MV PHT 91 msec MR VTI 1.534 m MV Area PHT 2.41 cm2 MR Peak Grad 54.7 mmHg MV VTI 0.249 m MR Mean Grad 42.1 mmHg MV Area VTI 1.70 (4.0-6.0 cm2) MR PISA Radius 0.46 cm MR EROA 0.13 cm2 MR Aliasing Velocity 0.35 m/s MR PISA 1.35 cm2 Pulmonary Valve PV Vmax 1.02 (0.5-1.5 m/s) RVOT Peak Gr. 1.15 mmHg PV Peak Grad 4.2 mmHg RVOT Mean Gr. 0.55 mmHg PV Mean Grad 1.9 mmHg RVOT VTI 0.083 m PV VTI 0.159 m RVOT Vmax 0.54 m/s Tricuspid Valve TR Peak Grad 18.4 mmHg TR Vmax 2.15 m/s RA Pressure 8.00 mmHg RVSP (TR) 26.4 mmHg
--- NOTE | 2021-02-06 07:30 | DI.US_ITS ---
Exam(s) US LOWER EXTREMITY VENOUS RT EXAM: US LOWER EXTREMITY VENOUS RT CLINICAL HISTORY: right lower leg pain and swelling, R52, R60.9. TECHNIQUE: Ultrasound performed using standard protocol. COMPARISON: US US CAROTID from 12/02/2020 FINDINGS: Duplex venous ultrasound was performed according to the usual protocol. The deep veins are freely com pressible throughout and there is normal flow augmentation with manual calf compression. 2D and Doppl er evaluation are unremarkable. IMPRESSION: No evidence of deep venous thrombosis of the right lower extremity. DATA REPOSITORY:
== END 2021-02-06 03:58 ==
PROVIDERS: PCP Internal Medicine; Visit Provider Student in an Organized Health Care Education/Training Program
DX: I25.5 Ischemic cardiomyopathy (principal); R52 Pain, unspecified; R60.9 Edema, unspecified; I08.3 Combined rheumatic disorders of mitral, aortic and tricuspid valves; I77.810 Thoracic aortic ectasia
CPT/HCPCS: 93306; 93971

== ENCOUNTER → 2021-02-11 10:49 | Outpatient (BNVA) | payer OTHER, SELFPAY | PROVIDERS: PCP Internal Medicine; Visit Provider Internal Medicine Cardiovascular Disease | DX: I47.2 Ventricular tachycardia (principal); Z45.02 Encounter for adjustment and management of automatic implantable cardiac defibrillator; J98.4 Other disorders of lung; T46.2X5A Adverse effect of other antidysrhythmic drugs, initial encounter | CPT/HCPCS: 93282; 99213 ==

== ENCOUNTER 2021-02-16 01:24 | Outpatient (CLI) | payer OTHER, SELFPAY | END 2021-02-16 01:25 | disposition home or self-care (01) | LOC: RT 01:24 | PROVIDERS: PCP Internal Medicine; Visit Provider Student in an Organized Health Care Education/Training Program | DX: R69 Illness, unspecified (principal) ==

== ENCOUNTER 2021-02-20 01:01 | Outpatient (CLI) | payer OTHER, SELFPAY ==
[2021-02-20] MEDS: Inhaler, Assist Device 1 EACH MC (10:53)
[2021-02-20] MEDS: Albuterol HFA 18 GM 200 PUFF INH IH (10:53)
--- NOTE | 2021-02-20 16:01 | W.PFT ---
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 There is no significant bronchodilator I will effect. Lung Volumes: Lung volumes are normal Diffusion Capacity: The diffusion is reduced Airway Pressure: Airways resistance is normal Impression Moderate airflow obstruction with a reduced diffusion. Note: When compared to 07/25/2020 the FEV1 and FVC have both increased. There is no longer a bronchodilator effect. The diffusion has decreased. Clinical Correlation therefore is recommended.
== END 2021-02-20 01:02 | disposition home or self-care (01) ==
LOC: RT 01:15
PROVIDERS: PCP Internal Medicine; Visit Provider Student in an Organized Health Care Education/Training Program
DX: J98.4 Other disorders of lung (principal); T46.2X5A Adverse effect of other antidysrhythmic drugs, initial encounter; R94.2 Abnormal results of pulmonary function studies; J44.9 Chronic obstructive pulmonary disease, unspecified
CPT/HCPCS: 94060; 94726; 94729

== ENCOUNTER 2021-03-11 04:52 | Inpatient (IN) | payer OTHER, SELFPAY ==
[2021-03-11] VITALS (157 sets, daily range): BP systolic 93–150; BP diastolic 48–112; PULSE 56–105; RESP 8–25; TEMP 36–37.1; O2SAT 90–100
--- NOTE | 2021-03-11 04:45 | RT.EKG_ITS ---
APPROVED REPORT Exam: Resting ECG Reason for Exam: chest pain Patient Location: E HR:60 bpm ECG Measurements Heart Rate [address] 155 P 20 QRSd 171 QRS -82 QT 502 T 65 QTc 510 Conclusion Atrial-ventricular dual-paced complexes...other complexes also detected Biventricular paced rhythm...non-simultaneous bi-vent pacing Physician: Rate 60, biventricular paced rhythm, good capture, no significant abnormalities otherwise. Negative for SCARBOSSA criterion.
--- NOTE | 2021-03-11 05:21 | ED.GENADUL_ITS ---
Discharge Plan Disposition Patient Disposition: [facility] INPATIENT Condition: Stable Discharge Details Clinical Impression: Non-ST elevation CA (NSTEMI) Admit Date/Time: 03/11/21 11:30 Admit Provider: Darrius Hallman Attending Provider: Darrius Hallman Primary Care Provider: Forrest Crandall ED Provider: Lokesh Collazo Discharge Data Discharge Date/Time-TO BE ENTERED AT DEPARTURE: 03/11/21 12:52 Medical Decision Making <Jarad Jarquin DO - Last Filed: 03/12/21 02:47> This is a 75-year-old male with a past medical history of CABG x2 open heart surgery, coronary artery disease, diabetes mellitus type 2, high cholesterol, hypertension, ischemic cardiomyopathy with a pacemaker defibrillator. He presents today for chest pain. Patient states that at 3:30 AM the patient was awoken from sleep with an achy chest pain/pressure on the right side of his chest. It is made worse with deep breathing. He denies any exertional component. He states that it feels slightly similar to when he had his previous heart attack 10 years ago. He denies any history of blood clots, he denies any history of PE. He denies any cough, fever or chills. No recent long trips or surgeries. Of note the patient recently has stopped taking his amiodarone. About a month and a half ago he was noted to have pulmonary infiltrates, there was concern that this may have been secondary to amiodarone toxicity. After consultation with his security advisor and pulmonology is decided that he would stop the amiodarone, which is now been off for the last few weeks. He is still taking his other medications including his beta-tomy. No other complaints at this time. No other modifying factors. Exam demonstrates no reproducible chest pain, no tenderness over the pacemaker defibrillator. EKG shows ventricular pacing with good capture, negative for SCARBOSSA. Concern for potential cardiac etiology, specifically an ischemic event secondary to his notable history. He does have mild pitting edema of the lower extremities, and the pleuritic component, differential does include PE but this is less likely. We will give nitroglycerin, and a D-dimer, evaluate for cardiac etiology, monitor closely and reassess. Case will be signed out to my colleague Dr. Lokesh Collazo for follow-up on reviewed labs and imaging. 7:44 AM Initial set of labs have returned, relatively unremarkable, no white count, D-dimer mildly elevated, renal function stable. proBNP unremarkable. Initial troponin normal. EKG stable. CT scan of the chest shows evidence of no pulmonary embolism, there is interstitial irritation in the lungs likely secondary to the amiodarone toxicity. Two small nodules in the right upper lobe measuring 4 mm. Patient's heart score is high. Pending repeat EKG/trop. EKG 5: 00 Rate 60, biventricular paced rhythm, good capture, no significant abnormalities otherwise. Negative for SCARBOSSA criterion. FINDINGS: Tubes, catheters and devices: An AICD is noted. Pulmonary arteries: Normal. No pulmonary emboli. Aorta: Unremarkable. No aortic aneurysm. No aortic dissection. Lungs: Mild centrilobular emphysema. Multiple new patchy ground-glass opacities are seen with peripheral predominance involving variable degrees of crazy paving (smooth thickening intralobular and interlobular pulmonary septa/interstitium) and subsegmental consolidative change within the bilateral lungs involving all lobes.. Previously seen patchy consolidative opacity in the right upper lobe has nearly resolved. Two new hazy nodules in the right upper lobe, measuring 4 mm (image 24/series 4). Pleural spaces: Unremarkable. No pneumothorax. No pleural effusion. Heart: Mild cardiomegaly. Lymph nodes: Unremarkable. No enlarged lymph nodes. Bones/joints: Median sternotomy wires. No acute or suspicious osseous a bnormalities. Soft tissues: Unremarkable. IMPRESSION: 1. No evidence of pulmonary embolism. 2. Commonly reported imaging features of COVID-19 pneumonia are present. Other processes such as influenza pneumonia and organizing pneumonia, as can be seen with drug toxicity and connective tissue disease, can cause a similar imaging pattern. 3. Two new hazy nodules in the right upper lobe, measuring 4 mm.For patients at low risk (minimal or absent history of smoking and of other known risk factors), no routine follow-up is indicated. For patients at high risk (history of smoking or of other known risk factors), consider optional CT Chest at 12 months. (Reference: Cathleen) REFERENCES: Cathleen Monique, et al. Guidelines for Management of Incidental Pulmonary Nodules Detected on CT Images: From the Fleischner Society 2017. Radiology. 2017;284(1):228-243. Thank you for allowing us to participate in the care of your patient. Dictated and Authenticated by: Dipika Sidhu MD 03/11/2021 7:34 AM Eastern Time ([place] & [place]) <Lokesh Collazo MD - Last Filed: 03/11/21 11:26> Patient remains pain free, second troponin elevated at 0.24, was already given 4 81mg aspirin, will start heparin. He is currently denying pain. will consult with [facility] spoke with [facility] and they accepted for transfer tomorrow, Dr. Correa is the accepting provider. Will discuss with hospitalist. His device was interrogated and showed no events, no VT. Lab Data Lab results reviewed: Yes I reviewed the patient's lab results. ECG Data Attestation: I personally reviewed and interpreted this ECG (s) as follows: Prior ECG tracings: available for review Interpretation: paced rhythm, rate of 60, no acute ischemic findings, negative sgarbossa HPI <Jarad Jarquin DO - Last Filed: 03/12/21 02:47> General Date/Time Provider Initiated Documentation: 03/11/21 04:53 . HPI Narrative: This is a 75-year-old male with a past medical history of CABG x2 open heart surgery, coronary artery disease, diabetes mellitus type 2, high cholesterol, hypertension, ischemic cardiomyopathy with a pacemaker defibrillator. He presents today for chest pain. Patient states that at 3:30 AM the patient was awoken from sleep with an achy chest pain/pressure on the right side of his chest. It is made worse with deep breathing. He denies any exertional component. He states that it feels slightly similar to when he had his previous heart attack 10 years ago. He denies any history of blood clots, he denies any history of PE. He denies any cough, fever or chills. No recent long trips or surgeries. Of note the patient recently has stopped taking his amiodarone. About a month and a half ago he was noted to have pulmonary infiltrates, there was concern that this may have been secondary to amiodarone toxicity. After consultation with his security advisor and pulmonology is decided that he would stop the amiodarone, which is now been off for the last few weeks. He is still taking his other medications including his beta-tomy. No other complaints at this time. No other modifying factors. Related Data Home Medications Medication Instructions Recorded Confirmed Lovasa 1 BID 06/17/20 02/11/21 coenzyme Q10 [Co Q-10] 100 mg PO DAILY 06/17/20 03/11/21 isosorbide mononitrate 15 mg PO DAILY 06/17/20 03/11/21 metformin 500 mg PO BID 06/17/20 03/11/21 rosuvastatin [Crestor] 5 mg PO DAILY 06/17/20 03/11/21 aspirin [Aspir-81] 81 mg PO DAILY 07/10/20 03/11/21 docusate sodium 100 mg capsule 400 mg PO DAILY cap 07/28/20 03/11/21 metoprolol succinate 50 mg 200 mg PO DAILY tab 07/28/20 03/11/21 tablet,extended release 24 hr sacubitril 49 mg-valsartan 51 mg 1 tab PO BID #180 tab 09/05/20 03/11/21 tablet albuterol sulfate 90 mcg/actuation 2 puff INHALATION Q6H PRN #6.7 g 01/26/21 03/11/21 aerosol inhaler tiotropium 2.5 mcg-olodaterol 2.5 2 puff INHALATION DAILY #4 g 01/26/21 03/11/21 mcg/actuation mist for inhalation Previous Rx's Medication Instructions Recorded sacubitril 49 mg-valsartan 51 mg 1 tab PO BID #180 tab 09/05/20 tablet albuterol sulfate 90 mcg/actuation 2 puff INHALATION Q6H PRN #6.7 g 01/26/21 aerosol inhaler tiotropium 2.5 mcg-olodaterol 2.5 2 puff INHALATION DAILY #4 g 01/26/21 mcg/actuation mist for inhalation Allergies Allergy/AdvReac Type Severity Reaction Status Date / Time erythromycin base Allergy Verified 03/11/21 05:08 General Stated Complaint: Chest Pain RAJESH: 2 Review of Systems <Jarad Jarquin DO - Last Filed: 03/12/21 02:47> All systems reviewed & are unremarkable except as noted in HPI and below PFSH <Jarad Jarquin DO - Last Filed: 03/12/21 02:47> Medical History Amiodarone pulmonary toxicity Cervical myelopathy COPD (chronic obstructive pulmonary disease) Coronary artery disease Depression Diabetes type 2, controlled Hyperlipidemia Hypertension Ischemic cardiomyopathy Tremor Ventricular tachycardia Surgical History AICD (automatic cardioverter/defibrillator) present Biventricular 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 3.ENT: Atraumatic external nose and ears. Moist MM. Neck: Symmetric, trachea midline, No thyromegaly. 4.CVS: +S1/S2, No murmurs or gallops. Peripheral pulses 2+ and equal in all extremities. Brisk capillary refill in all extremities. No tenderness over the pacemaker 5.RESP: Unlabored respiratory effort. Clear to auscultation bilaterally. No wheezes rales or rhonchi 6.GI: Soft, Nontender/Nondistended, No hepatosplenomegaly. No guarding or rebound. 7.MSK: Normocephalic/Atraumatic, Extremities w/o deformity or ttp No cyanosis or clubbing, Normal movement of all extremities, mild +2 pitting edema in the right lower extremity no calf tenderness mild +1 pitting edema in the left lower extremity. No calf tenderness. Patient states this is baseline bilaterally. 8.Skin: Warm, Dry. No rashes or lesions. 9.Neuro: cone winder II-XII grossly intact. Sensation grossly intact, no focal neurologic deficits. 10.Psych: (AAO) x3. Appropriate mood and affect Course <Jarad Jarquin DO - Last Filed: 03/12/21 02:47> Vital Signs Vital signs: Vital Signs Temperature 36.0 C L 03/11/21 05:06 Pulse 60 03/11/21 05:06 Respiratory Rate 18 03/11/21 05:06 Blood Pressure 146/95 H 03/11/21 05:06 Pulse Oximetry 100 03/11/21 05:06 Temperature 36.0 C L 03/11/21 05:06 Temperature Source Temporal Artery Scan 03/11/21 05:06 Pulse 60 03/11/21 05:06 Respiratory Rate 18 03/11/21 05:06 Respiratory Effort Non-Labored 03/11/21 05:10 Blood Pressure 146/95 H 03/11/21 05:06 Blood Pressure Position Supine 03/11/21 05:06 Pulse Oximetry 100 03/11/21 05:06 Oxygen Delivery Method Room Air 03/11/21 05:06 Oxygen Flow Rate 0 03/11/21 05:06 Pain Level 1 03/11/21 05:06 Sign Out <Jarad Jarquin DO - Last Filed: 03/12/21 02:47> Sign Out Data: Sign Out Comment: Follow-up on labs. Chest pain. Last updated by Jarad Jarquin DO at 03/11/21 07:47
[2021-03-11] MEDS: nitroGLYcerin 0.4 MG TAB SL (05:24)
[2021-03-11] MEDS: Aspirin 81 MG CHEW 324 MG CH (05:27)
[2021-03-11 05:46] LABS: Abs Immature Grans 0.04 10^3/uL (0.0-0.06); Absolute Basophil Count 0.06 10^3/uL (0.0-0.2); Absolute Eosinophil Count 0.14 10^3/uL (0.0-0.7); Absolute Lymphocyte Count 1.65 10^3/uL (1.2-3.4); Absolute Monocyte Count 0.59 10^3/uL (0.1-0.8); Absolute Neutrophil Count 4.96 10^3/uL (1.2-6.7); Basophils % 0.8; Eosinophils % 1.9; HGB 14.3 g/dL (13.5-17.5); Immature Grans % 0.5; Lymphocytes % 22.2; MCH 30.8 pg (27.0-33.0); MCHC 33.3 % (32.0-36.0); MCV 92.7 fL (80-95); Monocytes % 7.9; Neutrophils % 66.7; Nucleated RBC 0 %; Platelet Count 232 10^3/uL (130-400); RBC 4.64 10^6/uL (4.36-5.78); RDW 13.8 % (11.8-14.1); RDW-SD 46.6 fL; WBC 7.44 10^3/uL (4.4-10.8)
--- NOTE | 2021-03-11 05:57 | NUR.NOTE ---
Nursing Note: Spoke with [employer] Pastrana local rep from [facility], made aware patient needs his pacer/defib interrogated today.
[2021-03-11 06:09] LABS: ALT 39 U/L (16-63); AST 22 U/L (15-37); Albumin 3.5 g/dL (3.4-5.0); Alkaline Phosphatase 65 U/L (46-116); Anion Gap 4.8 mmol/L (3-11); BUN 19 mg/dL (7-18); Bilirubin, Total 0.4 mg/dL (0.2-1.0); CO2 31.2 mmol/L (21.0-32.0); CREATININE 1.2 mg/dL (0.70-1.30); Calcium 8.8 mg/dL (8.5-10.1); Chloride 104 mmol/L (98-107); Estimated GFR 59.18 (mL/min/1.73m2); Glucose 197 mg/dL (74-106); Lipase 119 U/L (73-393); NT-proBNP 418 pg/mL (<300); Potassium 4.2 mmol/L (3.5-5.1); Sodium 140 mmol/L (136-145); Total Protein 7.2 g/dL (6.4-8.2); Troponin I < 0.05 ng/mL (<0.06)
[2021-03-11 06:21] LABS: D-Dimer 675 ng/mlFEU (<500)
--- NOTE | 2021-03-11 06:55 | DI.CT_ITS ---
Exam(s) CT CHEST PE CTA EXAM: CT CHEST PE CTA CLINICAL HISTORY: right chest pain, elevated dimer, r/o PE. TECHNIQUE: Imaging Protocol: Axial CT angiography was performed with multi-slice acquisition and mu lti-planar and/or 3D reconstructions. CONTRAST MATERIAL: Intravenous: Omnipaque 350 Contrast volume:100 mL COMPARISON: CT CT CHEST W from 12/25/2020 FINDINGS: Tracheobronchial tree: Patent where visualized. Pulmonary parenchyma: Multifocal ground-glass infiltrates are seen in the lungs predominantly periphe rally. Findings are most marked in the lower lobes. There also some areas of consolidation in the l ower lobes. Mild centrilobular and paraseptal emphysematous changes are present. There are 2 small ground-glass nodules in the right upper lobe measuring approximately 4 mm. Pulmonary Arteries: No evidence of filling defect to suggest pulmonary emboli. Mediastinum and Cinda: No dominant adenopathy or fluid collection. Visualized thyroid gland: Unremarkable. Pleura: No effusion or pneumothorax. Heart: Cardiomegaly. Coronary artery calcification. No pericardial effusion. Aorta: Thoracic aorta non-dilated. No evidence of dissection. Atherosclerosis. Upper abdomen: Unremarkable. Tubes, Catheters, and Lines: Transvenous cardiac pacemaker is in place. Soft tissues: Mild gynecomastia. Bones: Within normal limits for the patient's age.Sternotomy wires. IMPRESSION: 1. No evidence of pulmonary embolism, thoracic aortic dissection or aneurysm. 2. Multifocal ground-glass opacities with some areas of consolidation in the lower lobes. Differenti al considerations include atypical pneumonia is including COVID-19 pneumonia. Please correlate clini ahmet. 3. Two 4 mm ground-glass nodules in the right upper lobe. For high risk patients (history smoking or other risk factors), optional CT scan of the chest in 12 months is recommended. (Reference: Triston catalan, 2017) RADIATION DOSE DELIVERED: 347.79mGy.cm Total DLP DATA REPOSITORY: All CT scans at this facility are submitted to the National Radiology Data Registry (NRDR) Dose Index Registry (DIR) with the [employer] (ACR). RADIATION OPTIMIZATION: All CT scans at this facility use at least one of these dose optimization te chniques: automated exposure control; mA and/or kV adjustment per patient size (includes targeted exa ms where dose is matched to clinical indication); or iterative reconstruction.
[2021-03-11] MEDS: Omnipaque 350 MG/ML 100 ML BTL IJ (06:59)
[2021-03-11] MEDS: Normal Saline Flush 10 ML SYR IVP ×2 (07:00→09:51)
[2021-03-11] MEDS: Normal Saline - Diluent 50 ML VIAL IV (07:00)
--- NOTE | 2021-03-11 07:34 | DI.VRAD_ITS ---
PROCEDURE INFORMATION: Exam: CTA Chest With Contrast Exam date and time: 03/11/2021 6:25 AM Age: 75 years old Clinical indication: Other: Right chest pain, elevated dimer, R/O pe TECHNIQUE: Imaging protocol: Computed tomographic angiography of the chest with contrast. 3D rendering (Not supervised by radiologist): MIP and/or 3D reconstructed images were created by the technologist. Radiation optimization: All CT scans at this facility use at least one of these dose optimization techniques: automated exposure control; mA and/or kV adjustment per patient size (includes targeted exams where dose is matched to clinical indication); or iterative reconstruction. Contrast material: OMNIPAQUE 350; Contrast volume: 100 ml; Contrast route: INTRAVENOUS (IV); COMPARISON: CT CHEST W 12/25/2020 2:17 PM FINDINGS: Tubes, catheters and devices: An AICD is noted. Pulmonary arteries: Normal. No pulmonary emboli. Aorta: Unremarkable. No aortic aneurysm. No aortic dissection. Lungs: Mild centrilobular emphysema. Multiple new patchy ground-glass opacities are seen with peripheral predominance involving variable degrees of crazy paving (smooth thickening intralobular and interlobular pulmonary septa/interstitium) and subsegmental consolidative change within the bilateral lungs involving all lobes.. Previously seen patchy consolidative opacity in the right upper lobe has nearly resolved. Two new hazy nodules in the right upper lobe, measuring 4 mm (image 24/series 4). Pleural spaces: Unremarkable. No pneumothorax. No pleural effusion. Heart: Mild cardiomegaly. Lymph nodes: Unremarkable. No enlarged lymph nodes. Bones/joints: Median sternotomy wires. No acute or suspicious osseous abnormalities. Soft tissues: Unremarkable. IMPRESSION: 1. No evidence of pulmonary embolism. 2. Commonly reported imaging features of COVID-19 pneumonia are present. Other processes such as influenza pneumonia and organizing pneumonia, as can be seen with drug toxicity and connective tissue disease, can cause a similar imaging pattern. 3. Two new hazy nodules in the right upper lobe, measuring 4 mm.For patients at low risk (minimal or absent history of smoking and of other known risk factors), no routine follow-up is indicated. For patients at high risk (history of smoking or of other known risk factors), consider optional CT Chest at 12 months. (Reference: Cathleen) REFERENCES: Cathleen Monique et al. Guidelines for Management of Incidental Pulmonary Nodules Detected on CT Images: From the Fleischner Society 2017. Radiology. 2017;284(1):228-243. Dictated and Authenticated by: Dipika Sidhu MD. Ordering:DANIELA Abraham MD
--- NOTE | 2021-03-11 09:00 | RT.EKG_ITS ---
APPROVED REPORT Exam: Resting ECG Reason for Exam: elevated trop Patient Location: E HR:60 bpm ECG Measurements Heart Rate 60 AXIS DE 163 P 73 QRSd 143 QRS 227 QT 483 T 98 QTc 483 Conclusion Atrial-ventricular dual-paced rhythm Biventricular paced rhythm...non-simultaneous bi-vent pacing
[2021-03-11 09:02] LABS: Source Nasal/Nares
[2021-03-11 09:04] LABS: Troponin I 0.24 ng/mL (<0.06)
[2021-03-11 10:01] LABS: PTT Activated 19.8 sec (21.0-27.5); Prothrombin Time 10.4 sec (9.3-11.0)
[2021-03-11 10:12] LABS: COVID-19 PCR Negative (Negative)
[2021-03-11] MEDS: Clopidogrel 300 MG TAB PO (11:28)
--- NOTE | 2021-03-11 11:35 | HPE_ITS ---
Date of service: 03/11/21 Time of Service: 11:35 Assessment and Plan Assessment and plan (1) Non-ST elevation [place] (NSTEMI): Status: Acute Assessment and plan: accepted under [place] Correa [place] [facility] here pending bed availability. troponin rising and now at 2.6 from 0.24, next draw at 1600 received full dose aspirin, plavix 300 mg and is on heparin drip is pain free. telemetry, continue to cycle troponin till peak. add lipid panel, A1C continue asa, beta tomy and statin (2) Ischemic cardiomyopathy: Status: Acute Assessment and plan: AICD continue entresto, beta tomy and statin. limited echo results pending echo from 02/06/21 Conclusion Mildly dilated left ventricle. Normal left ventricular wall thickness. Estimated ejection fraction is 35% with global hypokinesis Normal right ventricular size. Grossly normal right ventricular systolic function. Device lead noted in the right ventricle Both atria are normal in size. Device lead noted in the right atrium Trileaflet aortic valve with trace to mild regurgitation Thickened mitral leaflets, mild mitral regurgitation Normal tricuspid valve with mild regurgitation Trace physiologic pulmonic regurgitation Mildly dilated ascending aorta (3) COPD (chronic obstructive pulmonary disease): Status: Chronic Assessment and plan: stable, continue home medication (4) Diabetes type 2, controlled: Status: Inactive Assessment and plan: diabetic diet blood sugar checks ac/hs with coverage as needed will check A1C hold metformin for anticipated cardiac cath tomorrow. (5) DVT prophylaxis: Status: Acute Assessment and plan: on heparin drip (6) Discharge planning issues: Status: Acute Assessment and plan: transfer to [facility] when bed available. accepting is Dr Correa. discussed with Dr Hallman History of Present Illness History of Present Illness Chief Complaint: chest pain Narrative: reports episode of substernal chest pain that woke him out of a sleep. states he's been in his usual state of health. tried 2 of his outdated nitro with little effect on the pain. denied diaphoresis or shortness of breath, denied similar history. states previously he experienced pain on left side of chest, today is substernal and radiates to the right. he has had no fever or cough. no recent illness. his work up in the ED shows no acute st segment changes. is initial troponin in negative, repeat is elevated at 0.2. On arrival to ED he had received 324 mg of asa and nitro x1 SL with relief of his symptoms. he has remained cp free since. His case was discussed with Dr Correa at [facility] cardiology. there are no beds available but he is accepted for cardiac evaluation for tomorrow. he is given a 300 mg po plavix load and started on heparin drip per ACS protocol. he is admitted to med/surg on telemetry pending bed availability. Review of Systems All systems reviewed & are unremarkable except as noted in HPI and below Cardiovascular Cardiovascular: Reports chest pain, Denies chest pain with activity, Denies syncope, Denies rapid heart rate, Denies irregular heart rhythm, Denies lightheadedness, Denies radiating jaw, neck or arm pain and Denies dyspnea Respiratory Respiratory: Denies cough and Denies dyspnea Gastrointestinal Gastrointestinal: Denies abdominal pain and Denies nausea Integumentary/Breasts Skin/Breast: Denies rash and Denies sores Neurologic Neurologic: Denies syncope [facility] Medical History (Updated 03/11/21 @ 14:33 by Nydia Martell NP) Coronary artery disease Depression Diabetes type 2, controlled Hyperlipidemia Hypertension Ischemic cardiomyopathy Surgical History AICD (automatic cardioverter/defibrillator) present Biventricular 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 What is your relationship status?: Panel score (0-1 are the most socially isolated patients): 0 Do you feel safe at home: Yes Do you feel safe in your relationship?: Yes Meds Allergies and Home Medications Allergies Allergy/AdvReac Type Severity Reaction Status Date / Time erythromycin base Allergy Verified 03/11/21 05:08 Home Medications Medication Instructions Recorded Confirmed Type Lovasa 1 BID 06/17/20 02/11/21 History coenzyme Q10 [Co Q-10] 100 mg PO DAILY 06/17/20 03/11/21 History isosorbide mononitrate 15 mg PO DAILY 06/17/20 03/11/21 History metformin 500 mg PO BID 06/17/20 03/11/21 History rosuvastatin [Crestor] 5 mg PO DAILY 06/17/20 03/11/21 History aspirin [Aspir-81] 81 mg PO DAILY 07/10/20 03/11/21 History docusate sodium 100 mg capsule 400 mg PO DAILY cap 07/28/20 03/11/21 History metoprolol succinate 50 mg 200 mg PO DAILY tab 07/28/20 03/11/21 History tablet,extended release 24 hr sacubitril 49 mg-valsartan 51 mg 1 tab PO BID #180 tab 09/05/20 03/11/21 Rx tablet albuterol sulfate 90 mcg/actuation 2 puff INHALATION Q6H PRN #6.7 g 01/26/21 03/11/21 Rx aerosol inhaler tiotropium 2.5 mcg-olodaterol 2.5 2 puff INHALATION DAILY #4 g 01/26/21 03/11/21 Rx mcg/actuation mist for inhalation Exam Const General: cooperative, healthy appearing, comfortable and no acute distress Nutritional Appearance: average body habitus Orientation: alert, awake and oriented x3 HENMT Head: normal to inspection, normocephalic and atraumatic Mouth: oral mucosae normal Neck Neck: no JVD Chest Chest: normal inspection of the chest Resp Effort & Inspection: normal respiratory effort Auscultation: rales (bases bilaterally) Cardio Rate: regular rate Rhythm: regular rhythm Heart Sounds: no murmurs GI Inspection: normal to inspection Palpation: soft Auscultation: normal bowel sounds Skin General skin exam: no rashes or lesions noted Extrem General: no pedal edema Results Labs Result diagrams: 03/11/21 05:18 03/11/21 05:18 Labs: Laboratory Results - last 24 hr 03/11/21 03/11/21 03/11/21 05:18 05:18 05:18 WBC 7.44 RBC 4.64 Hgb 14.3 Hct 43.0 MCV 92.7 MCH 30.8 MCHC 33.3 RDW 13.8 Plt Count 232 MPV 10.0 Immature Gran % 0.5 Neutrophils % 66.7 Lymphocytes % 22.2 Monocytes % 7.9 Eosinophils % 1.9 Basophils % 0.8 Nucleated RBC % 0 Absolute Neutrophils 4.96 Absolute Lymphocytes 1.65 Absolute Monocytes 0.59 Absolute Eosinophils 0.14 Absolute Basophils 0.06 PT INR APTT D-Dimer 675 H Sodium 140 Potassium 4.2 Chloride 104 Carbon Dioxide 31.2 Anion Gap 4.8 BUN 19 H Creatinine 1.2 Estimated GFR/1.73 m2 59.18 Glucose 197 H Calcium 8.8 Total Bilirubin 0.4 AST 22 ALT 39 Alkaline Phosphatase 65 Troponin I < 0.05 NT-Pro-B Natriuret Pep 418 H Total Protein 7.2 Albumin 3.5 Lipase 119 COVID-19 Source SARS-CoV-2 (PCR) 03/11/21 03/11/21 03/11/21 08:25 09:00 09:38 WBC RBC Hgb Hct MCV MCH MCHC RDW Plt Count MPV Immature Gran % Neutrophils % Lymphocytes % Monocytes % Eosinophils % Basophils % Nucleated RBC % Absolute Neutrophils Absolute Lymphocytes Absolute Monocytes Absolute Eosinophils Absolute Basophils PT 10.4 INR 1.0 APTT 19.8 L D-Dimer Sodium Potassium Chloride Carbon Dioxide Anion Gap BUN Creatinine Estimated GFR/1.73 m2 Glucose Calcium Total Bilirubin AST ALT Alkaline Phosphatase Troponin I 0.24 H* NT-Pro-B Natriuret Pep Total Protein Albumin Lipase COVID-19 Source Nasal/Nares SARS-CoV-2 (PCR) Negative Last Vital Signs Temp 36.0 C L 03/11/21 05:06 Pulse 70 03/11/21 10:46 Resp 16 03/11/21 10:50 BP 103/66 03/11/21 10:46 Pulse Ox 96 03/11/21 10:50
[2021-03-11 13:12] LABS: Troponin I 2.63 ng/mL (<0.06)
[2021-03-11 14:58] LABS: Hemoglobin A1C 7.4 % (<5.7)
--- NOTE | 2021-03-11 16:54 | CHAPLAIN ---
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 He's been here about a year or so and is with the [facility] until they find a new ink maker. He is from [facility]. He told me that he had a heart attack and is waiting to be transferred [place] [facility] likely tomorrow or when a bed opens up. He called a member of the [facility] who is a nurse, in the middle of the night after being woken up with chest pain.She drove him to the ED. Nahun said he has been in contact with his and a son. Another son lives with Nahun's . Nahun seemed relaxed but said he may have a cardiac cath. He's had one before and said it's not a pleasant experience. He will certainly not be in [facility] on Tuesday and told members of his staff that already. I'll continue to visit.
[2021-03-11 17:03] LABS: Troponin I 5.75 ng/mL (<0.06)
[2021-03-11 17:23] LABS: PTT Activated 53.1 sec (21.0-27.5)
--- NOTE | 2021-03-11 17:45 | RT.EKG_ITS ---
APPROVED REPORT Exam: Resting ECG Reason for Exam: nstemi Patient Location: I HR:60 bpm ECG Measurements Heart Rate 60 AXIS OR 171 P 137 QRSd 139 QRS 250 QT 468 T 81 QTc 468 Conclusion A-V dual-paced rhythm with some inhibition...atrial and/or vent inhibition Biventricular paced rhythm...non-simultaneous bi-vent pacing
[2021-03-11] MEDS: Sacubitril/Valsartan 24 mg/26 mg TAB 2 EACH PO (20:14)
[2021-03-11 21:38] LABS: Troponin I 8.24 ng/mL (<0.06)
--- NOTE | 2021-03-11 22:15 | DSE_ITS ---
Date of service: 03/11/21 Time of Service: 22:15 DS: Diagnosis Discharge Diagnosis (1) Non-ST elevation [place] (NSTEMI): Status: Acute (2) Ischemic cardiomyopathy: Status: Chronic (3) COPD (chronic obstructive pulmonary disease): Status: Chronic (4) Diabetes type 2, controlled: Status: Chronic (5) Pulmonary nodules: Status: Acute (6) COVID-19 ruled out by laboratory testing: Status: Ruled-out Discharge Plan Disposition Patient Disposition: 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 The chest pain started during sleep and woke the patient up, was pressure like on the right side of the patient's chest and worse with inspiration, similar to the pain he had at the time of his prior [place]. In the ED, his initial troponin I was negative, but went up to 0.24, then 2.63, 5.75, and finally 8.24. EKG is demonstrating paced rhythm, unchanged. He ruled out for acute PE (his CTA did show previously known multifocal groundglass opacities blamed on amiodarone toxicity as well as two 4 mm ground glass nodules, which will need outpatient follow up). COVID-19 was ruled out with a negative nasal PCR. The patient was initiated was loaded with plavix and aspirin and initiated on heparin drip. While nitroglycerin infusion was prescribed, the patient ended up not receiving it due to lack of chest discomfort. He was accepted in [place] [facility] [place] for evaluation for cardiac cath (unavailable at [facility]) by Dr Correa. He is hemodynamically stable and chest pain free and agreeable to transfer. Please, look at MAR for list of the patient's inpatient medications as the list below reflects the patient's outpatient prescriptions. Total Critical Care Time 30 minutes. Home Meds and New Rx's Prescriptions: No Action Entresto 49-51 mg tablet 1 tab PO BID Qty: 180 RF: 3 Stiolto Respimat 2.5-2.5 mcg/actuation mist 2 puff inhalation DAILY Qty: 4 RF: 5 albuterol sulfate 90 mcg/actuation HFA aerosol inhaler 2 puff inhalation Q6H PRN (Reason: shortness of breath or wheezing) Qty: 6.7 RF: 5 metformin 500 mg Tablet 500 mg PO BID RF: 0 isosorbide mononitrate 10 mg Tablet 15 mg PO DAILY RF: 0 coenzyme Q10 [Co Q-10] 100 mg Capsule 100 mg PO DAILY RF: 0 rosuvastatin [Crestor] 10 mg Tablet 5 mg PO DAILY RF: 0 Lovasa 1 BID RF: 0 docusate sodium [Colace] 100 mg capsule 400 mg PO DAILY RF: 0 metoprolol succinate 50 mg tablet extended release 24 hr 200 mg PO DAILY RF: 0 aspirin [Aspir-81] 81 mg Tablet,Delayed Release (Dr/Ec) 81 mg PO DAILY RF: 0 Discharge Instructions Referrals: Esperanza Cutler MD [ [facility] STAFF PHYSICIAN] - Forrest Crandall [Primary Care Provider] - Activity:: bedrest w/ BPR Diet:: NPO Discharge Orders Discharge Orders: Discharge Order (Routine); Ordered 03/11/21 Ordered By: Laura Gee DS: Summary Time Spent with Patient providing and/or coordinating discharge services: Greater than 30 minutes Status at Discharge Functional status at discharge: independent ambulation Overall status at discharge: patient is progressing back to baseline Mental Status: mental status grossly normal Speech and Movement: speech and movement normal Mood: congruent mood Affect: normal affect Exam Narrative Exam Narrative: Physical exam as documented by [facility] [place] General: cooperative, healthy appearing, comfortable and no acute distress Nutritional Appearance: average body habitus Orientation: alert, awake and oriented x3 HENMT Head: normal to inspection, normocephalic and atraumatic Mouth: oral mucosae normal Neck Neck: no JVD Chest Chest: normal inspection of the chest Resp Effort & Inspection: normal respiratory effort Auscultation: rales (bases bilaterally) Cardio Rate: regular rate Rhythm: regular rhythm Heart Sounds: no murmurs GI Inspection: normal to inspection Palpation: soft Auscultation: normal bowel sounds Skin General skin exam: no rashes or lesions noted Extrem General: no pedal edema Psych Mental Status: mental status grossly normal Speech and Movement: speech and movement normal Mood: congruent mood Affect: normal affect DS: Data Vitals/I&O Vitals and I&O: Vital Signs Temperature 37.1 C 03/11/21 20:00 Temperature Source Temporal Artery Scan 03/11/21 20:00 Pulse 60 03/11/21 21:49 Pulse 64 03/11/21 21:50 Respiratory Rate 17 03/11/21 21:50 Respiratory Effort 03/11/21 20:00 Respiratory Depth Normal 03/11/21 20:00 Respiratory Pattern Normal 03/11/21 20:00 Blood Pressure 118/67 03/11/21 21:49 Blood Pressure Mean 78 03/11/21 21:49 Blood Pressure Position Supine 03/11/21 20:00 Pulse Oximetry 96 03/11/21 21:49 Oxygen Delivery Method Room Air 03/11/21 20:00 Oxygen Flow Rate 0 03/11/21 20:00 Pain Level 0 03/11/21 20:00 Intake & Output 03/10/21 03/11/21 03/11/21 23:59 11:59 23:59 Intake Total 64.883 / 64.883 Output Total 600 / 600 Balance -535.117 / -535.117 Weight 72.575 kg Intake: IV 64.883 / 64.883 Output: Urine 600 / 600 Other: Urine Color Yellow Urine Appearance Clear Urine Odor Normal Voiding Methods Urinal Data Completed and Pending Completed studies during hospitalization [Text1]: CTA chest: 1. No evidence of pulmonary embolism, thoracic aortic dissection or aneurysm. 2. Multifocal ground-glass opacities with some areas of consolidation in the lower lobes. Differential considerations include atypical pneumonia is including COVID-19 pneumonia. Please correlate clinically. 3. Two 4 mm ground-glass nodules in the right upper lobe. For high risk patients (history smoking or other risk factors), optional CT scan of the chest in 12 months is recommended. (Reference: Cathleen, 2017) TTE (limited; preliminary read): LV mildly dilated, LVEF 30%. No comment on wall motion. Labs on day of discharge: Labs from last 24 hours 03/11/21 03/11/21 03/11/21 21:05 18:00 16:20 WBC RBC Hgb Hct MCV MCH MCHC RDW Plt Count MPV Immature Gran % Neutrophils % Lymphocytes % Monocytes % Eosinophils % Basophils % Nucleated RBC % Absolute Neutrophils Absolute Lymphocytes Absolute Monocytes Absolute Eosinophils Absolute Basophils PT INR APTT 53.1 H D D-Dimer Sodium Potassium Chloride Carbon Dioxide Anion Gap BUN Creatinine Estimated GFR/1.73 m2 Glucose Hemoglobin A1c Calcium Total Bilirubin AST ALT Alkaline Phosphatase Troponin I 8.24 H* Cancelled NT-Pro-B Natriuret Pep Total Protein Albumin Lipase COVID-19 Source SARS-CoV-2 (PCR) 03/11/21 03/11/21 03/11/21 16:20 14:16 12:30 WBC RBC Hgb Hct MCV MCH MCHC RDW Plt Count MPV Immature Gran % Neutrophils % Lymphocytes % Monocytes % Eosinophils % Basophils % Nucleated RBC % Absolute Neutrophils Absolute Lymphocytes Absolute Monocytes Absolute Eosinophils Absolute Basophils PT INR APTT D-Dimer Sodium Potassium Chloride Carbon Dioxide Anion Gap BUN Creatinine Estimated GFR/1.73 m2 Glucose Hemoglobin A1c Calcium Total Bilirubin AST ALT Alkaline Phosphatase Troponin I 5.75 H* Cancelled 2.63 H* NT-Pro-B Natriuret Pep Total Protein Albumin Lipase COVID-19 Source SARS-CoV-2 (PCR) 03/11/21 03/11/21 03/11/21 09:38 09:00 08:25 WBC RBC Hgb Hct MCV MCH MCHC RDW Plt Count MPV Immature Gran % Neutrophils % Lymphocytes % Monocytes % Eosinophils % Basophils % Nucleated RBC % Absolute Neutrophils Absolute Lymphocytes Absolute Monocytes Absolute Eosinophils Absolute Basophils PT 10.4 INR 1.0 APTT 19.8 L D-Dimer Sodium Potassium Chloride Carbon Dioxide Anion Gap BUN Creatinine Estimated GFR/1.73 m2 Glucose Hemoglobin A1c Calcium Total Bilirubin AST ALT Alkaline Phosphatase Troponin I 0.24 H* NT-Pro-B Natriuret Pep Total Protein Albumin Lipase COVID-19 Source Nasal/Nares SARS-CoV-2 (PCR) Negative 03/11/21 03/11/21 03/11/21 05:18 05:18 05:18 WBC 7.44 RBC 4.64 Hgb 14.3 Hct 43.0 MCV 92.7 MCH 30.8 MCHC 33.3 RDW 13.8 Plt Count 232 MPV 10.0 Immature Gran % 0.5 Neutrophils % 66.7 Lymphocytes % 22.2 Monocytes % 7.9 Eosinophils % 1.9 Basophils % 0.8 Nucleated RBC % 0 Absolute Neutrophils 4.96 Absolute Lymphocytes 1.65 Absolute Monocytes 0.59 Absolute Eosinophils 0.14 Absolute Basophils 0.06 PT INR APTT D-Dimer 675 H Sodium Potassium Chloride Carbon Dioxide Anion Gap BUN Creatinine Estimated GFR/1.73 m2 Glucose Hemoglobin A1c 7.4 H Calcium Total Bilirubin AST ALT Alkaline Phosphatase Troponin I NT-Pro-B Natriuret Pep Total Protein Albumin Lipase COVID-19 Source SARS-CoV-2 (PCR) 03/11/21 05:18 WBC RBC Hgb Hct MCV MCH MCHC RDW Plt Count MPV Immature Gran % Neutrophils % Lymphocytes % Monocytes % Eosinophils % Basophils % Nucleated RBC % Absolute Neutrophils Absolute Lymphocytes Absolute Monocytes Absolute Eosinophils Absolute Basophils PT INR APTT D-Dimer Sodium 140 Potassium 4.2 Chloride 104 Carbon Dioxide 31.2 Anion Gap 4.8 BUN 19 H Creatinine 1.2 Estimated GFR/1.73 m2 59.18 Glucose 197 H Hemoglobin A1c Calcium 8.8 Total Bilirubin 0.4 AST 22 ALT 39 Alkaline Phosphatase 65 Troponin I < 0.05 NT-Pro-B Natriuret Pep 418 H Total Protein 7.2 Albumin 3.5 Lipase 119 COVID-19 Source SARS-CoV-2 (PCR) PFSH Medical History Amiodarone pulmonary toxicity Cervical myelopathy COPD (chronic obstructive pulmonary disease) Coronary artery disease Depression Diabetes type 2, controlled Hyperlipidemia Hypertension Ischemic cardiomyopathy Tremor Ventricular tachycardia Surgical History AICD (automatic cardioverter/defibrillator) present Biventricular [facility] 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
== END 2021-03-11 22:58 | disposition short-term general hospital (02) | DRG 282 ==
LOC: ER 11:25 → ICU 12:46
PROVIDERS: Internal Medicine; Nurse Practitioner Acute Care; Student in an Organized Health Care Education/Training Program; Admitting Provider Family Medicine; Emergency Provider Emergency Medicine; PCP Internal Medicine; Visit Provider Family Medicine
DX: I21.4 Non-ST elevation (NSTEMI) myocardial infarction (principal); I25.5 Ischemic cardiomyopathy; J44.9 Chronic obstructive pulmonary disease, unspecified; E11.9 Type 2 diabetes mellitus without complications; Z20.822 Contact with and (suspected) exposure to COVID-19; Z95.1 Presence of aortocoronary bypass graft; I25.10 Atherosclerotic heart disease of native coronary artery without angina pectoris; E78.00 Pure hypercholesterolemia, unspecified; I10 Essential (primary) hypertension; Z95.810 Presence of automatic (implantable) cardiac defibrillator; F32.9 Major depressive disorder, single episode, unspecified; R91.8 Other nonspecific abnormal finding of lung field
CPT/HCPCS: 36415; 71275; 80053; 83690; 87635; 93005; 93308; 96365; 96366; 96376; 99285; 83036; 83880; 84484; 85025; 85379; 85610; 85730; 93010; 99223; 99291; J3490

== ENCOUNTER 2021-03-18 13:29 | Outpatient (CLI) | payer OTHER, SELFPAY ==
--- NOTE | 2021-03-18 07:38 | DI.CT_ITS ---
Exam(s) CT CHEST WO EXAM: CT CHEST WO CLINICAL HISTORY: f/u infiltrates after stopping amiodarone,j98.4,t46.2x5a. TECHNIQUE: Imaging protocol: Axial computed tomography images were obtained and coronal and sagittal reformatted images were created and reviewed. COMPARISON: CT CT CHEST PE CTA from 03/11/2021 FINDINGS: Tracheobronchial tree: Patent where visualized. Pulmonary parenchyma: There has been slight improvement in the ground-glass opacities in the lungs pa rticularly noted in the right upper lobe. Paraseptal emphysematous changes are present. Mediastinum and Cinda: No dominant adenopathy or fluid collection. Thyroid gland: Unremarkable. Pleura: No effusion or pneumothorax. Heart: Mild cardiomegaly. Coronary artery calcification. No pericardial effusion. Aorta: Thoracic aorta non-dilated. Atherosclerosis. Upper abdomen: Unremarkable. Lymph nodes: Within normal limits. Tubes, Catheters, and Lines: A transvenous pacing device is in place. Soft tissues: Gynecomastia. Bones:Within normal limits for the patient's age. Sternal wires are in place. IMPRESSION: Slight improvement in the ground-glass opacities since 03/11/2021. RADIATION DOSE DELIVERED: 406.21mGy.cm Total DLP 406.21mGy.cm Total DLP DATA REPOSITORY: All CT scans at this facility are submitted to the National Radiology Data Registry (NRDR) Dose Index Registry (DIR) with the [employer] (ACR). RADIATION OPTIMIZATION: All CT scans at this facility use at least one of these dose optimization te chniques: automated exposure control; mA and/or kV adjustment per patient size (includes targeted exa ms where dose is matched to clinical indication); or iterative reconstruction.
== END 2021-03-18 13:49 ==
PROVIDERS: PCP Internal Medicine; Visit Provider Student in an Organized Health Care Education/Training Program
DX: I25.10 Atherosclerotic heart disease of native coronary artery without angina pectoris (principal); J98.4 Other disorders of lung; T46.2X5A Adverse effect of other antidysrhythmic drugs, initial encounter; Z95.810 Presence of automatic (implantable) cardiac defibrillator; I25.5 Ischemic cardiomyopathy; Z95.1 Presence of aortocoronary bypass graft
CPT/HCPCS: 71250; 99214

== ENCOUNTER → 2021-03-24 07:57 | Outpatient (BNVA) | payer OTHER, SELFPAY | PROVIDERS: PCP Internal Medicine; Referring Provider Internal Medicine; Visit Provider Psychiatry & Neurology Neurology | DX: G95.89 Other specified diseases of spinal cord (principal); R25.1 Tremor, unspecified; R41.89 Other symptoms and signs involving cognitive functions and awareness; R20.2 Paresthesia of skin; G56.03 Carpal tunnel syndrome, bilateral upper limbs; E11.9 Type 2 diabetes mellitus without complications | CPT/HCPCS: 99214 ==

== ENCOUNTER → 2021-06-19 13:39 | Outpatient (BNVA) | payer OTHER, SELFPAY | PROVIDERS: PCP Internal Medicine; Visit Provider Internal Medicine Cardiovascular Disease | DX: I25.10 Atherosclerotic heart disease of native coronary artery without angina pectoris (principal); Z95.810 Presence of automatic (implantable) cardiac defibrillator; I25.5 Ischemic cardiomyopathy; Z95.1 Presence of aortocoronary bypass graft; Z20.822 Contact with and (suspected) exposure to COVID-19; I47.2 Ventricular tachycardia; Z79.899 Other long term (current) drug therapy | CPT/HCPCS: 99214 ==

== ENCOUNTER 2021-06-19 18:34 | Outpatient (REF) | payer OTHER, SELFPAY ==
[2021-06-21 23:00] LABS: COVID-19 RT-PCR UVMMC Result Negative (Negative)
== END 2021-06-19 18:35 | disposition home or self-care (01) ==
LOC: LBN 18:34
PROVIDERS: PCP Internal Medicine; Visit Provider Internal Medicine Cardiovascular Disease
DX: Z20.822 Contact with and (suspected) exposure to COVID-19 (principal)
CPT/HCPCS: U0003

== ENCOUNTER → 2021-07-08 10:06 | Outpatient (BNVA) | payer OTHER, SELFPAY | PROVIDERS: PCP Internal Medicine; Visit Provider Psychiatry & Neurology Neurology | DX: R25.1 Tremor, unspecified (principal); R41.9 Unspecified symptoms and signs involving cognitive functions and awareness; G56.03 Carpal tunnel syndrome, bilateral upper limbs; R26.89 Other abnormalities of gait and mobility; R05.9 Cough, unspecified; Z72.89 Other problems related to lifestyle | CPT/HCPCS: 99215 ==

== ENCOUNTER 2021-07-13 21:48 | Outpatient (REF) | payer OTHER, SELFPAY ==
[2021-07-13 22:01] LABS: Abs Immature Grans 0.01 10^3/uL (0.0-0.06); Absolute Basophil Count 0.06 10^3/uL (0.0-0.2); Absolute Eosinophil Count 0.16 10^3/uL (0.0-0.7); Absolute Lymphocyte Count 1.14 10^3/uL (1.2-3.4); Absolute Monocyte Count 0.44 10^3/uL (0.1-0.8); Absolute Neutrophil Count 5.17 10^3/uL (1.2-6.7); Basophils % 0.9; Eosinophils % 2.3; HCT 40.4 % (40.0-50.0); Immature Grans % 0.1; Lymphocytes % 16.3; MCHC 32.2 % (32.0-36.0); MCV 93.3 fL (80-95); MPV 11.2 fL (8.0-11.0); Monocytes % 6.3; Neutrophils % 74.1; Nucleated RBC 0 %; Platelet Count 309 10^3/uL (130-400); RBC 4.33 10^6/uL (4.36-5.78); RDW 13.3 % (11.8-14.1); RDW-SD 45.8 fL; WBC 6.98 10^3/uL (4.4-10.8)
[2021-07-13 22:38] LABS: ALT 13 U/L (16-63); AST 10 U/L (15-37); Albumin 2.9 g/dL (3.4-5.0); Alkaline Phosphatase 83 U/L (46-116); Anion Gap 0.2 mmol/L (3-11); BUN 13 mg/dL (7-18); Bilirubin, Total 0.4 mg/dL (0.2-1.0); CO2 26.8 mmol/L (21.0-32.0); CREATININE 1.1 mg/dL (0.70-1.30); Calcium 8.9 mg/dL (8.5-10.1); Chloride 95 mmol/L (98-107); Glucose 186 mg/dL (74-106); NT-proBNP 632 pg/mL (<300); Potassium 3.5 mmol/L (3.5-5.1); Total Protein 8.1 g/dL (6.4-8.2)
[2021-07-14 10:37] LABS: Sodium 122 mmol/L (136-145)
== END 2021-07-13 21:49 | disposition home or self-care (01) ==
LOC: LBN 21:48
PROVIDERS: PCP Internal Medicine; Visit Provider Family Medicine
DX: R05.8 Other specified cough (principal); I25.5 Ischemic cardiomyopathy; Z79.899 Other long term (current) drug therapy; I50.9 Heart failure, unspecified
CPT/HCPCS: 80053; 83880; 85025

== ENCOUNTER 2021-07-15 01:04 | Outpatient (CLI) | payer OTHER, SELFPAY ==
--- NOTE | 2021-07-15 09:48 | DI.RAD_ITS ---
Exam(s) XR CHEST 2V PA LATERAL EXAM: XR CHEST 2V PA LATERAL CLINICAL HISTORY: COUGH, R05 TECHNIQUE: 2D digital imaging was performed. COMPARISON: CR XR CHEST 2V PA LATERAL from 07/25/[address] CHEST WO from 03/18/2021 FINDINGS: MEDIASTINUM: Status post CABG.. HEART: Enlarged, unchanged. Dual lead pacemaker. PULMONARY VASCULATURE: Normal. LUNGS: Bilateral increased pulmonary densities, greatest at the left lower lobe. The findings appear s significantly worse when compared with the previous exam. Findings could represent new or worsenin g bilateral infiltrates. There appears to be an element of emphysematous and fiber parotic changes. PLEURAL SPACE: No pleural effusion or pneumothorax. BONE:Degenerative disc changes. IMPRESSION: Worsening or new bilateral infiltrates greatest at the left lower lobe. DATA REPOSITORY: RADIATION DOSE DELIVERED:
== END 2021-07-15 01:24 ==
PROVIDERS: PCP Internal Medicine; Visit Provider Family Medicine
DX: R05.8 Other specified cough (principal); R91.8 Other nonspecific abnormal finding of lung field
CPT/HCPCS: 71046

== ENCOUNTER 2021-07-15 08:21 | Outpatient (CLI) | payer OTHER, SELFPAY | END 2021-07-15 08:22 | disposition home or self-care (01) | LOC: DI.CARD 08:33 | PROVIDERS: PCP Internal Medicine; Visit Provider Internal Medicine Cardiovascular Disease | DX: R07.9 Chest pain, unspecified (principal) | CPT/HCPCS: 93010 ==

== ENCOUNTER 2021-07-15 14:58 | Outpatient (REF) | payer OTHER, SELFPAY ==
[2021-07-15 13:04] LABS: Abs Immature Grans 0.03 10^3/uL (0.0-0.06); Absolute Basophil Count 0.07 10^3/uL (0.0-0.2); Absolute Eosinophil Count 0.13 10^3/uL (0.0-0.7); Absolute Monocyte Count 0.58 10^3/uL (0.1-0.8); Absolute Neutrophil Count 6.84 10^3/uL (1.2-6.7); Basophils % 0.8; Eosinophils % 1.5; HCT 35.8 % (40.0-50.0); HGB 11.6 g/dL (13.5-17.5); Immature Grans % 0.3; Lymphocytes % 12.6; MCH 29.4 pg (27.0-33.0); MCHC 32.4 % (32.0-36.0); MCV 90.9 fL (80-95); MPV 10.6 fL (8.0-11.0); Monocytes % 6.6; Neutrophils % 78.2; Nucleated RBC 0 %; Platelet Count 298 10^3/uL (130-400); RBC 3.94 10^6/uL (4.36-5.78); RDW 13.2 % (11.8-14.1); RDW-SD 43.7 fL; WBC 8.75 10^3/uL (4.4-10.8)
[2021-07-15 13:15] LABS: ALT 12 U/L (16-63); AST 9 U/L (15-37); Albumin 2.6 g/dL (3.4-5.0); Alkaline Phosphatase 74 U/L (46-116); BUN 15 mg/dL (7-18); Bilirubin, Total 0.4 mg/dL (0.2-1.0); CREATININE 1.1 mg/dL (0.70-1.30); Calcium 8.3 mg/dL (8.5-10.1); Chloride 101 mmol/L (98-107); Glucose 216 mg/dL (74-106); Potassium 4.3 mmol/L (3.5-5.1); Sodium 138 mmol/L (136-145); Total Protein 7.3 g/dL (6.4-8.2)
[2021-07-15 14:03] LABS: Hemoglobin A1C 8.7 % (<5.7)
[2021-07-15 23:37] LABS: Legionella Ag Detection Urine Negative (Negative)
[2021-07-16 15:07] LABS: Streptococcus Pneumoniae Ag, U Negative (Negative)
== END 2021-07-15 14:59 | disposition home or self-care (01) ==
LOC: LBN 14:58
PROVIDERS: PCP Internal Medicine; Visit Provider Student in an Organized Health Care Education/Training Program
DX: E87.1 Hypo-osmolality and hyponatremia (principal); E11.9 Type 2 diabetes mellitus without complications; J18.9 Pneumonia, unspecified organism
CPT/HCPCS: 80053; 87449; 83036; 85025; 87899

== ENCOUNTER 2021-07-21 12:32 | Inpatient (IN) | payer OTHER, SELFPAY ==
[2021-07-21] VITALS (72 sets, daily range): BP systolic 75–128; BP diastolic 43–81; PULSE 61–158; RESP 7–28; TEMP 36.3–36.7; O2SAT 94–100
--- NOTE | 2021-07-21 12:30 | RT.EKG_ITS ---
APPROVED REPORT Exam: Resting ECG Reason for Exam: bradycardia Patient Location: E HR:104 bpm ECG Measurements Heart Rate 104 AXIS MS 61 P 0 QRSd 125 QRS 188 QT 365 T 31 QTc 480 Conclusion Atrial-sensed ventricular-paced rhythm...ventricular pacing tracks p-waves Biventricular paced rhythm...non-simultaneous bi-vent pacing
[2021-07-21] MEDS: Normal Saline 500 ML IV (13:10)
[2021-07-21 13:16] LABS: Abs Immature Grans 0.03 10^3/uL (0.0-0.06); Absolute Basophil Count 0.06 10^3/uL (0.0-0.2); Absolute Eosinophil Count 0.07 10^3/uL (0.0-0.7); Absolute Lymphocyte Count 1.35 10^3/uL (1.2-3.4); Absolute Monocyte Count 0.61 10^3/uL (0.1-0.8); Absolute Neutrophil Count 7.49 10^3/uL (1.2-6.7); Basophils % 0.6; Eosinophils % 0.7; HCT 41.7 % (40.0-50.0); HGB 13.6 g/dL (13.5-17.5); Immature Grans % 0.3; MCH 29.5 pg (27.0-33.0); MCHC 32.6 % (32.0-36.0); MCV 90.5 fL (80-95); Monocytes % 6.3; Neutrophils % 78.1; Nucleated RBC 0 %; Platelet Count 306 10^3/uL (130-400); RBC 4.61 10^6/uL (4.36-5.78); RDW 13.8 % (11.8-14.1); RDW-SD 45.7 fL; WBC 9.61 10^3/uL (4.4-10.8)
[2021-07-21 13:23] LABS: Lactate 1.7 mmol/L (0.6-1.4)
[2021-07-21 13:38] LABS: ALT 13 U/L (16-63); AST 13 U/L (15-37); Albumin 3.1 g/dL (3.4-5.0); Alkaline Phosphatase 68 U/L (46-116); Anion Gap 10.9 mmol/L (3-11); BUN 28 mg/dL (7-18); Bilirubin, Total 0.4 mg/dL (0.2-1.0); CO2 26.1 mmol/L (21.0-32.0); CREATININE 1.6 mg/dL (0.70-1.30); Calcium 9.3 mg/dL (8.5-10.1); Chloride 100 mmol/L (98-107); Estimated GFR 42.35 (mL/min/1.73m2); Glucose 198 mg/dL (74-106); Magnesium 1.9 mg/dL (1.8-2.4); NT-proBNP 677 pg/mL (<300); Potassium 3.7 mmol/L (3.5-5.1); Sodium 137 mmol/L (136-145); TSH (W/Ref FT4) 1.75 uIU/mL (0.36-3.74); Total Protein 8.8 g/dL (6.4-8.2); Troponin I < 50 ng/L (<or=60)
--- NOTE | 2021-07-21 13:54 | DI.RAD_ITS ---
Exam(s) XR PORTABLE CHEST AP EXAM: XR PORTABLE CHEST AP CLINICAL HISTORY: presyncope TECHNIQUE: 2D digital imaging was performed of the chest. One image was obtained. An AP view was ob tained. COMPARISON: CR XR CHEST 2V PA LATERAL from 07/25/2020 CR XR CHEST 2V PA LATERAL from 07/15/2021 FINDINGS: MEDIASTINUM: Normal. HEART: Status post CABG. Cardiac pacing wires are unchanged. PULMONARY VASCULATURE: Normal. LUNGS: There are bilateral pulmonary infiltrates present. There does appear to be some improvement i n the infiltrates in the right lung. The left lung appears stable. PLEURAL SPACE: No pleural effusion or pneumothorax. BONE:Within normal limits for the patient's age. OTHER FINDINGS:Normal. IMPRESSION: Persistent bilateral pulmonary infiltrates. Slight improvement is noted in the right lung. DATA REPOSITORY: RADIATION DOSE DELIVERED:
--- NOTE | 2021-07-21 15:18 | HPE_ITS ---
Date of service: 07/21/21 Time of Service: 15:19 Assessment and Plan Assessment and plan (1) Acute kidney injury: Status: Acute Assessment and plan: thought to be pre-renal d/t dehydration from recent G I symptoms of vomiting and nausea will avoid nephrotoxic drugs, renal dosing as needed IV hydration overnight, monitor fluid volume status closely. (2) Amiodarone pulmonary toxicity: Status: Acute Assessment and plan: followed by pulmonary. has been off amiodarone (3) COPD (chronic obstructive pulmonary disease): Status: Chronic Assessment and plan: stable, continue home meds (4) Ischemic cardiomyopathy: Status: Chronic Assessment and plan: A1CD which has been interogated and shows episodes of SVT, no over-ride. no episodes since hydrated. admitted on telemetry continue entresto (5) Diabetes type 2, controlled: Status: Chronic Assessment and plan: diabetic diet, sliding scale ac/hs, will hold metformin while hospitalized and until creatinine improved hemoglobin A1C 8.7 on jul 15 (6) DVT prophylaxis: Status: Acute Assessment and plan: heparin sq, teds (7) Discharge planning issues: Status: Acute Assessment and plan: anticipate discharge to home with no services once medically stable. discussed with DR Hallman. History of Present Illness History of Present Illness Chief Complaint: dehydration Narrative: patient presents with dizziness and generalized weakness. a few days ago had GI viral symptoms with nausea and vomiting which has resolved. He has a [employer] [facility] AICD which when interrogated per ED provider reports showed SVT with no over-ride. patient work up in the ED was consistent with dehydration. He was given IV fluids with improvement in his symptoms. 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 Review of Systems All systems reviewed & are unremarkable except as noted in HPI and below Constitutional Constitutional: Reports fatigue, Denies fever(s) and Reports weakness ENT Ears, Nose, Mouth, and Throat: Denies vertigo Cardiovascular Cardiovascular: Denies chest pain, Denies syncope, Reports rapid heart rate, Denies leg edema, Reports lightheadedness and Denies dyspnea Respiratory Respiratory: Denies cough and Denies dyspnea Gastrointestinal Gastrointestinal: Denies nausea (resolved now) and Denies vomiting (resolved) Musculoskeletal Musculoskeletal: Denies back pain and Denies arthralgias Neurologic Neurologic: Denies confusion, Denies vertigo, Denies syncope and Reports weakness Psychiatric Psychiatric: Denies confusion Endocrine Endocrine: Reports fatigue PFSH All Active Problems Acute kidney injury (Acute) Pneumonia (Acute) Hyponatremia (Acute) Coronary artery disease (Chronic) Pulmonary nodules (Acute) Tremor (Acute) Cervical myelopathy (Acute) COPD (chronic obstructive pulmonary disease) (Chronic) Amiodarone pulmonary toxicity (Acute) Diabetes type 2, controlled (Chronic) Discharge planning issues (Acute) DVT prophylaxis (Acute) Non-ST elevation IN (NSTEMI) (Acute) Pulmonary infiltrate (Acute) Carpal tunnel syndrome on both sides (Acute) Abnormality of lung on chest x-ray (Acute) Ischemic cardiomyopathy (Chronic) Hx of CABG (Chronic) Paresthesia of hand, bilateral (Acute) Cognitive complaints (Acute) AICD (automatic cardioverter/defibrillator) present (Acute) Biventricular [facility] 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 What is your relationship status?: Panel score (0-1 are the most socially isolated patients): 0 Do you feel safe at home: Yes Do you feel safe in your relationship?: Yes Meds Allergies and Home Medications Allergies Allergy/AdvReac Type Severity Reaction Status Date / Time erythromycin base Allergy Verified 07/15/21 12:12 amiodarone AdvReac Severe pneumonitis Verified 07/15/21 12:12 and neuropathy Home Medications Medication Instructions Recorded Confirmed Type coenzyme Q10 [Co Q-10] 100 mg PO DAILY 06/17/20 07/21/21 History isosorbide mononitrate 15 mg PO DAILY 06/17/20 07/21/21 History metformin 500 mg PO BID 06/17/20 07/21/21 History aspirin [Aspir-81] 81 mg PO DAILY 07/10/20 07/21/21 History docusate sodium 100 mg capsule 400 mg PO DAILY cap 07/28/20 07/21/21 History metoprolol succinate 50 mg 200 mg PO DAILY tab 07/28/20 07/21/21 History tablet,extended release 24 hr sacubitril 49 mg-valsartan 51 mg 1 tab PO BID #180 tab 09/05/20 07/21/21 Rx tablet albuterol sulfate 90 mcg/actuation 2 puff INHALATION Q6H PRN #6.7 g 01/26/21 07/21/21 Rx aerosol inhaler amlodipine 2.5 mg tablet 2.5 mg PO DAILY 03/20/21 07/21/21 History rosuvastatin 10 mg tablet 20 mg PO DAILY tab 03/20/21 07/21/21 History cyanocobalamin (vitamin B-12) 1,000 mcg PO DAILY 03/24/21 07/21/21 History 1,000 mcg capsule Lovasa #90 ea 06/19/21 07/21/21 Rx nitroglycerin 0.4 mg sublingual 0.4 mg SUBLINGUAL Q5M #90 tab 06/19/21 07/21/21 Rx tablet benzonatate 100 mg capsule 100 mg PO TID 07/15/21 07/21/21 History Exam Const General: cooperative and no acute distress HENMT Head: normal to inspection Eyes Pupils: PERRL Resp Effort & Inspection: normal respiratory effort Auscultation: clear to auscultation bilaterally Cardio Rate: regular rate Rhythm: regular rhythm Skin General skin exam: no rashes or lesions noted Neuro General: patient alert and patient oriented x3 Cranial Nerves: CN's II-XI intact bilaterally and tongue midline Cognition: normal cognition Speech: speech normal Results Labs Result diagrams: 07/21/21 12:40 07/21/21 12:40 Labs: Laboratory Results - last 24 hr 07/21/21 07/21/21 07/21/21 12:40 12:40 12:40 WBC 9.61 RBC 4.61 Hgb 13.6 Hct 41.7 MCV 90.5 MCH 29.5 MCHC 32.6 RDW 13.8 Plt Count 306 MPV 10.0 Immature Gran % 0.3 Neutrophils % 78.1 Lymphocytes % 14.0 Monocytes % 6.3 Eosinophils % 0.7 Basophils % 0.6 Nucleated RBC % 0 Absolute Neutrophils 7.49 H Absolute Lymphocytes 1.35 Absolute Monocytes 0.61 Absolute Eosinophils 0.07 Absolute Basophils 0.06 VBG Lactate Sodium Cancelled 137 Potassium Cancelled 3.7 Chloride Cancelled 100 Carbon Dioxide Cancelled 26.1 Anion Gap Cancelled 10.9 BUN Cancelled 28 H Creatinine Cancelled 1.6 H Estimated GFR/1.73 m2 Cancelled 42.35 Glucose Cancelled 198 H Calcium Cancelled 9.3 Magnesium 1.9 Total Bilirubin Cancelled 0.4 AST Cancelled 13 L ALT Cancelled 13 L Alkaline Phosphatase Cancelled 68 Troponin I < 50 NT-Pro-B Natriuret Pep 677 H Total Protein Cancelled 8.8 H Albumin Cancelled 3.1 L TSH Cancelled 1.75 07/21/21 07/21/21 12:40 13:15 WBC RBC Hgb Hct MCV MCH MCHC RDW Plt Count MPV Immature Gran % Neutrophils % Lymphocytes % Monocytes % Eosinophils % Basophils % Nucleated RBC % Absolute Neutrophils Absolute Lymphocytes Absolute Monocytes Absolute Eosinophils Absolute Basophils VBG Lactate 1.7 H Sodium Potassium Chloride Carbon Dioxide Anion Gap BUN Creatinine Estimated GFR/1.73 m2 Glucose Calcium Magnesium Cancelled Total Bilirubin AST ALT Alkaline Phosphatase Troponin I NT-Pro-B Natriuret Pep Cancelled Total Protein Albumin TSH Last Vital Signs Temp 36.3 C L 07/21/21 14:21 Pulse 71 07/21/21 14:21 Resp 14 07/21/21 14:21 BP 128/43 L 07/21/21 14:21 Pulse Ox 98 07/21/21 14:21
--- NOTE | 2021-07-21 15:30 | W.ED.GENAD ---
Discharge Plan Discharge Details Chief Complaint: GenMedical Admit Date/Time: 07/21/21 15:16 Admit Provider: Darrius Hallman Attending Provider: Darrius Hallman Primary Care Provider: Forrest Crandall ED Provider: Micheline Lackey Discharge Data Discharge Date/Time-TO BE ENTERED AT DEPARTURE: 07/21/21 16:30 Medical Decision Making Patient appears chronically ill, but is alert and oriented He did have several episodes of hypotension and felt presyncopal when these events occurred He was in sinus tachycardia with PVCs throughout his stay, no episodes of ventricular tachycardia or supraventricular tachycardia noted He denies shortness of breath or any chest pain He is asymptomatic with tachycardia He is dehydrated clinically, creatinine of 1.6 which is new for patient and BUN of 28, this is likely secondary to the emesis possibly induced by Levaquin the patient took several days ago, he did not contact pleat his course His lungs are clear to auscultation, he is not hypoxic or tachypneic lactic acid slightly elevated, likely dehydration induced bnp elevated, no clinical signs or symptoms of volumed overload, noted hx of ischemic cardiomyopathy His lactate is mildly elevated, he is not exhibiting signs or symptoms of sepsis, I suspect given his presentation this is likely dehydration related I did discuss with Phoebe, nurse practitioner with [facility] cardiology regarding patient's pacemaker as we are unable to interrogate [employer] pacemaker and she states that the documentation from electrophysiology was that patient was having runs of ventricular tachycardia and SVT that were successfully paced by patient's pacemaker and there was no defibrillator intervention, patient confirms no defibrillation was performed Patient was given 1 L of IV normal saline over 2 hours and his blood pressure has been normotensive since that event His tachycardia has also improved, he is 88 on reassessment The EP note also indicated preference to increase metoprolol from 200-300, I will leave this to the discretion of the admitting provider Case was discussed with Dr. Hallman who accepted patient for admission Patient has been on telemetry, he is a full CODE STATUS X-ray does not show evidence of significant change when compared to prior, pt is asymptomatic from a pulmonary standpoint and I see no additional evidence of bacterial infection Medical Records Medical records reviewed: Yes I reviewed the patient's medical records. Lab Data Lab results reviewed: Yes I reviewed the patient's lab results. HPI General Mode of arrival: EMS. Date/Time Provider Initiated Documentation: 07/21/21 12:33. Limitations to Documentation: no limitations. Information obtained by: patientI think both [facility] I am not sure I can I told him the same time I also. HPI Narrative: This very pleasant 76-year-old gentleman with history of ventricular fibrillation/V. tach, coronary artery disease, hyponatremia, cervical myelopathy, COPD, amiodarone toxicity, diabetes, ischemic cardiomyopathy, pacemaker defibrillator placement presents with report of nausea and presyncope. Patient states he has been nauseous and felt like he might pass out with lightheadedness since last evening. He states he tried to vomit once but was relatively unsuccessful. This morning he awoke and tried to go to work but was too lightheaded and kept experiencing tunnel vision. He states that this occurred 7 or 8 times when they called paramedics at work. He denies any palpitations associated. 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 pacemaker defibrillator. He was told to increase his metoprolol from 200 to 300 mg. He denies any associated chest discomfort. He denies any shortness of breath. He does not note that he saw Dr. Oden on the second of this week and was placed on Levaquin for possible left lower lobe infiltrate. Denies any calf pain or swelling. Denies history of coagulopathy. Denies any fever or chills. Denies any pleuritic chest pain. Denies syncope. States that when he was taking Levaquin he vomited for 2 days straight. This resolved on Tuesday per patient. denies urinary symptoms Related Data Home Medications Medication Instructions Recorded Confirmed coenzyme Q10 [Co Q-10] 100 mg PO DAILY 06/17/20 07/21/21 isosorbide mononitrate 15 mg PO DAILY 06/17/20 07/21/21 metformin 500 mg PO BID 06/17/20 07/21/21 aspirin [Aspir-81] 81 mg PO DAILY 07/10/20 07/21/21 docusate sodium 100 mg capsule 400 mg PO DAILY cap 07/28/20 07/21/21 metoprolol succinate 50 mg 200 mg PO HS tab 07/28/20 07/21/21 tablet,extended release 24 hr sacubitril 49 mg-valsartan 51 mg 1 tab PO BID #180 tab 09/05/20 07/21/21 tablet albuterol sulfate 90 mcg/actuation 2 puff INHALATION Q6H PRN #6.7 g 01/26/21 07/21/21 aerosol inhaler amlodipine 2.5 mg tablet 2.5 mg PO DAILY 03/20/21 07/21/21 rosuvastatin 10 mg tablet 20 mg PO DAILY tab 03/20/21 07/21/21 cyanocobalamin (vitamin B-12) 1,000 mcg PO DAILY 03/24/21 07/21/21 1,000 mcg capsule Lovasa #90 ea 06/19/21 07/21/21 nitroglycerin 0.4 mg sublingual 0.4 mg SUBLINGUAL Q5M #90 tab 06/19/21 07/21/21 tablet benzonatate 100 mg capsule 100 mg PO TID 07/15/21 07/21/21 omega-3 acid ethyl esters [Lovaza] 2 cap PO BID 07/22/21 07/22/21 Previous Rx's Medication Instructions Recorded sacubitril 49 mg-valsartan 51 mg 1 tab PO BID #180 tab 09/05/20 tablet albuterol sulfate 90 mcg/actuation 2 puff INHALATION Q6H PRN #6.7 g 01/26/21 aerosol inhaler Lovasa #90 ea 06/19/21 nitroglycerin 0.4 mg sublingual 0.4 mg SUBLINGUAL Q5M #90 tab 06/19/21 tablet Allergies Allergy/AdvReac Type Severity Reaction Status Date / Time erythromycin base Allergy Verified 07/15/21 12:12 amiodarone AdvReac Severe pneumonitis Verified 07/15/21 12:12 and neuropathy General Stated Complaint: GenMedical RAJESH: 3 Review of Systems All systems reviewed & are unremarkable except as noted in HPI and below PFSH All Active Problems Acute kidney injury (Acute) Pneumonia (Acute) Hyponatremia (Acute) Coronary artery disease (Chronic) Pulmonary nodules (Acute) Tremor (Acute) Cervical myelopathy (Acute) COPD (chronic obstructive pulmonary disease) (Chronic) Amiodarone pulmonary toxicity (Acute) Diabetes type 2, controlled (Chronic) Discharge planning issues (Acute) DVT prophylaxis (Acute) Non-ST elevation GA (NSTEMI) (Acute) Pulmonary infiltrate (Acute) Carpal tunnel syndrome on both sides (Acute) Abnormality of lung on chest x-ray (Acute) Ischemic cardiomyopathy (Chronic) Hx of CABG (Chronic) Paresthesia of hand, bilateral (Acute) Cognitive complaints (Acute) AICD (automatic cardioverter/defibrillator) present (Acute) Biventricular [facility] 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 What is your relationship status?: Panel score (0-1 are the most socially isolated patients): 0 Do you feel safe at home: Yes Do you feel safe in your relationship?: Yes Exam Const General: cooperative and no acute distress HENMT Head: normal to inspection Other: Moist mucous membranes Eyes Pupils: PERRL Resp Effort & Inspection: normal respiratory effort Auscultation: clear to auscultation bilaterally Cardio Rate: tachycardic Rhythm: other GI Other: No abdominal tenderness Skin General skin exam: no rashes or lesions noted Neuro General: patient alert and patient oriented x3 Cranial Nerves: CN's II-XI intact bilaterally and tongue midline Cognition: normal cognition Speech: speech normal Extrem Other: No calf pain or swelling noted telemetry and he has not had any change in his rhythm. Course Vital Signs Vital signs: Vital Signs Temperature 36.7 C 07/21/21 12:31 Pulse 118 H 07/21/21 12:31 Respiratory Rate 16 07/21/21 12:31 Pulse Oximetry 98 07/21/21 12:31 Temperature 36.3 C L 02/08/22 14:21 Temperature Source Temporal Artery Scan 07/21/21 14:21 Pulse 71 07/21/21 14:21 Pulse 87 07/21/21 14:15 Respiratory Rate 14 07/21/21 14:21 Respiratory Effort 07/21/21 13:49 Respiratory Depth Normal 07/21/21 12:38 Respiratory Pattern Normal 07/21/21 12:38 Blood Pressure 128/43 L 07/21/21 14:21 Blood Pressure Mean 75 07/21/21 14:15 Blood Pressure Position Supine 07/21/21 12:31 Pulse Oximetry 98 07/21/21 14:21 Oxygen Delivery Method Room Air 07/21/21 14:21 Oxygen Flow Rate 0 07/21/21 14:21 Pain Level 0 07/21/21 14:21 Lab/Test Results Lab/Test Results: Laboratory Tests Range/Units 07/21/21 07/21/21 07/21/21 12:40 12:40 12:40 WBC (4.4-10.8) 10^3/uL 9.61 RBC (4.36-5.78) 10^6/uL 4.61 Hgb (13.5-17.5) g/dL 13.6 Hct (40.0-50.0) % 41.7 MCV (80-95) fL 90.5 MCH (27.0-33.0) pg 29.5 MCHC (32.0-36.0) % 32.6 RDW (11.8-14.1) % 13.8 Plt Count (130-400) 10^3/uL 306 MPV (8.0-11.0) fL 10.0 Immature Gran % 0.3 Neutrophils % 78.1 Lymphocytes % 14.0 Monocytes % 6.3 Eosinophils % 0.7 Basophils % 0.6 Nucleated RBC % % 0 Absolute Neutrophils (1.2-6.7) 10^3/uL 7.49 H Absolute Lymphocytes (1.2-3.4) 10^3/uL 1.35 Absolute Monocytes (0.1-0.8) 10^3/uL 0.61 Absolute Eosinophils (0.0-0.7) 10^3/uL 0.07 Absolute Basophils (0.0-0.2) 10^3/uL 0.06 VBG Lactate (0.6-1.4) mmol/L Sodium Cancelled 137 Potassium Cancelled 3.7 Chloride Cancelled 100 Carbon Dioxide Cancelled 26.1 Anion Gap Cancelled 10.9 BUN Cancelled 28 H Creatinine Cancelled 1.6 H Estimated GFR/1.73 m2 Cancelled 42.35 Glucose Cancelled 198 H Calcium Cancelled 9.3 Magnesium (1.8-2.4) mg/dL 1.9 Total Bilirubin Cancelled 0.4 AST Cancelled 13 L ALT Cancelled 13 L Alkaline Phosphatase Cancelled 68 Troponin I (<or=60) ng/L < 50 NT-Pro-B Natriuret Pep (<300) pg/mL 677 H Total Protein Cancelled 8.8 H Albumin Cancelled 3.1 L TSH Cancelled 1.75 Range/Units 07/21/21 07/21/21 12:40 13:15 WBC (4.4-10.8) 10^3/uL RBC (4.36-5.78) 10^6/uL Hgb (13.5-17.5) g/dL Hct (40.0-50.0) % MCV (80-95) fL MCH (27.0-33.0) pg MCHC (32.0-36.0) % RDW (11.8-14.1) % Plt Count (130-400) 10^3/uL MPV (8.0-11.0) fL Immature Gran % Neutrophils % Lymphocytes % Monocytes % Eosinophils % Basophils % Nucleated RBC % % Absolute Neutrophils (1.2-6.7) 10^3/uL Absolute Lymphocytes (1.2-3.4) 10^3/uL Absolute Monocytes (0.1-0.8) 10^3/uL Absolute Eosinophils (0.0-0.7) 10^3/uL Absolute Basophils (0.0-0.2) 10^3/uL VBG Lactate (0.6-1.4) mmol/L 1.7 H Sodium Potassium Chloride Carbon Dioxide Anion Gap BUN Creatinine Estimated GFR/1.73 m2 Glucose Calcium Magnesium (1.8-2.4) mg/dL Cancelled Total Bilirubin AST ALT Alkaline Phosphatase Troponin I (<or=60) ng/L NT-Pro-B Natriuret Pep (<300) pg/mL Cancelled Total Protein Albumin TSH
[2021-07-21 15:50] LABS: Source Nasal/Nares
[2021-07-21 16:28] LABS: Troponin I < 50 ng/L (<or=60)
[2021-07-21 16:44] LABS: COVID-19 PCR Negative (Negative)
[2021-07-21] MEDS: POTASSIUM CHLORIDE/0.9% NACL 1,000 ML 80 MEQ IV (17:30)
--- NOTE | 2021-07-21 18:00 | RT.EKG_ITS ---
APPROVED REPORT Exam: Resting ECG Reason for Exam: HR 151 Patient Location: I HR:151 bpm ECG Measurements Heart Rate 151 AXIS ID [id number] P 0 QRSd 132 QRS 53 QT 339 T 242 QTc 538 Conclusion Wide-QRS tachycardia...V-rate>(220-age), QRSd>120 Nonspecific intraventricular conduction delay...QRSd >115mS, not LBBB/RBBB Baseline wander in lead(s) V6 Probable ventricular tachycardia
--- NOTE | 2021-07-21 18:15 | RT.EKG_ITS ---
APPROVED REPORT Exam: Resting ECG Reason for Exam: TACHY Patient Location: I HR:111 bpm ECG Measurements Heart Rate 111 AXIS TX [id number] P [id number] QRSd 121 QRS 171 QT 389 T 10 QTc 529 Conclusion Afib/flut and V-paced complexes...other complexes, A-rate>240 No further analysis attempted due to paced rhythm Frequent PVCs and couplets
[2021-07-21] MEDS: Normal Saline 250 ML IV (18:40)
[2021-07-21] MEDS: Metoprolol 5 MG/5 ML VIAL 2.5 MG IVP (20:06)
[2021-07-21] MEDS: Metoprolol 50 MG TAB PO (20:09)
[2021-07-21 21:48] LABS: Troponin I < 50 ng/L (<or=60)
[2021-07-22] VITALS (86 sets, daily range): BP systolic 82–123; BP diastolic 43–80; PULSE 59–125; RESP 11–38; TEMP 36.3–37.3; O2SAT 90–98
--- NOTE | 2021-07-22 | DI.CT_ITS ---
Exam(s) CT CHEST PE CTA EXAM: CT CHEST PE CTA CLINICAL HISTORY: episodes of VT/SVT. TECHNIQUE: Imaging Protocol: CT angiography of the chest was performed using pulmonary embolus adalgisa col. Multi planar reconstructions were performed. CONTRAST MATERIAL: Intravenous: Omnipaque 350 Contrast volume: 100 cc COMPARISON: CT CT CHEST WO from 03/18/2021 FINDINGS: CHEST: PULMONARY ARTERIES: There are no intraluminal filling defects to suggest acute pulmonary emboli. LUNGS: There are patchy infiltrates in both lung rodriguez which have further increased when compared to the prior CT scan of 03/18/2021, this increased being most prominent in the lower lobes. There are no associated pleural effusions no new focal findings in the trachea and mainstem bronchi.. There ar e no pleural effusions. MEDIASTINUM: Small bilateral hilar lymph nodes are noted as are subcarinal lymph nodes. No significa nt adenopathy in the anterior mediastinal fat. No supraclavicular adenopathy. No axillary adenopath y. Visualized thyroid unremarkable. CARDIAC: Sternotomy wires. Mild cardiomegaly. Pacemaker wires in are in RV. No pericardial effusio n.Caliber of the thoracic aorta is within normal limits. There is no significant shift of the interv entricular septum. PARTIALLY VISUALIZED UPPERMOST ABDOMEN: No obvious findings OSSEOUS: No significant osseous lesions.. IMPRESSION: 1. No evidence of acute pulmonary emboli.. 2. There are patchy infiltrates in both lung rodriguez which have significantly increased when compared to the prior CT scan 03/18/2020. No associated pleural effusions. Mild adenopathy. Recommend testi ng forCovid -19 3. Cardiomegaly. Sternotomy. Pacemaker. RADIATION DOSE DELIVERED: 302.57mGy.cm Total DLP DATA REPOSITORY: All CT scans at this facility are submitted to the National Radiology Data Registry (NRDR) Dose Index Registry (DIR) with the [employer] (ACR). RADIATION OPTIMIZATION: All CT scans at this facility use at least one of these dose optimization te chniques: automated exposure control; mA and/or kV adjustment per patient size (includes targeted exa ms where dose is matched to clinical indication); or iterative reconstruction.
[2021-07-22] MEDS: Metoprolol 50 MG TAB PO ×5 (00:08→17:56)
[2021-07-22 07:12] LABS: Abs Immature Grans 0.02 10^3/uL (0.0-0.06); Absolute Basophil Count 0.06 10^3/uL (0.0-0.2); Absolute Eosinophil Count 0.21 10^3/uL (0.0-0.7); Absolute Lymphocyte Count 1.61 10^3/uL (1.2-3.4); Absolute Monocyte Count 0.59 10^3/uL (0.1-0.8); Absolute Neutrophil Count 5.19 10^3/uL (1.2-6.7); Basophils % 0.8; Eosinophils % 2.7; HGB 11.7 g/dL (13.5-17.5); Immature Grans % 0.3; MCH 29.2 pg (27.0-33.0); MCHC 32.5 % (32.0-36.0); MCV 89.8 fL (80-95); MPV 10.2 fL (8.0-11.0); Monocytes % 7.7; Neutrophils % 67.5; Nucleated RBC 0 %; Platelet Count 212 10^3/uL (130-400); RBC 4.01 10^6/uL (4.36-5.78); RDW 13.9 % (11.8-14.1); WBC 7.68 10^3/uL (4.4-10.8)
[2021-07-22 07:29] LABS: Anion Gap 6.4 mmol/L (3-11); BUN 19 mg/dL (7-18); CO2 24.6 mmol/L (21.0-32.0); CREATININE 1.3 mg/dL (0.70-1.30); Calcium 8.7 mg/dL (8.5-10.1); Chloride 107 mmol/L (98-107); Estimated GFR 53.82 (mL/min/1.73m2); Glucose 156 mg/dL (74-106); Potassium 4.1 mmol/L (3.5-5.1); Sodium 138 mmol/L (136-145); Troponin I < 50 ng/L (<or=60)
[2021-07-22] MEDS: Rosuvastatin 10 MG TAB 20 MG PO (08:42)
[2021-07-22] MEDS: Cyanocobalamin 500 MCG TAB 1000 MCG PO (08:43)
[2021-07-22] MEDS: Normal Saline Flush 10 ML SYR IVP (08:43)
[2021-07-22] MEDS: Isosorbide Mononitrate 10 MG TAB 15 MG PO (08:44)
[2021-07-22] MEDS: Aspirin E.C. 81 MG TABEC PO (08:44)
[2021-07-22] MEDS: Sacubitril/Valsartan 24 mg/26 mg TAB 2 EACH PO (08:46)
[2021-07-22] MEDS: Insulin Aspart 300 UNITS/3 ML PEN SC ×3 (08:46→16:53)
[2021-07-22] MEDS: Docusate Sodium 100 MG CAP 400 MG PO (08:46)
--- NOTE | 2021-07-22 09:15 | PUCC_ITS ---
General Date of Service Date of service: 07/22/21 Time of Service: 08:30 Reason for Admission to ICU: V.tach Assessment and Plan Assessment and plan (1) Acute kidney injury: Status: Acute (2) COPD (chronic obstructive pulmonary disease): Status: Chronic (3) Amiodarone pulmonary toxicity: Status: Acute (4) AICD (automatic cardioverter/defibrillator) present: Status: Acute (5) Ventricular tachycardia: Status: Chronic Assessment and plan: This is a 76 yo man with ischemic cardiomyopathy and tachyarrythmias s/p ablation and pacer/AICD, amiodarone toxicity and COPD who is admitted with an YVONNE (likely multifactorial due to dehydration and inconsistent perfusion with Vtach) and nonsustained pulse present V.tach. [facility] has been receiving outputs of these rhythms and did not feel as though an urgent intervention was required. He continues to have issues with dysrythmias. His YVONNE is improving and his breathing is stable. I did reach out via telephone to Dr. Bran office and through [employer] to ask for advice. He will need to avoid amiodarone, however lidocaine may be an option in an emergent situation if he does go into unstable sustained V.tach if his AICD does not fire. I would also recommend a device interrogation. Recommendations Pulmonary: COPD - will switch prn albuterol to levalbuterol Cough - ok to give cough syrup, Tesdeborahon Richie Cardiac: Ventricular dysrythmias - has AICD/pacer - would recommend increased metoprolol to a total of 300mg in 24 hours per [facility] cards recommendations - if I do not hear from Dr. Hernández today then would recommend trying to reach out to him tomorrow - avoid amiodarone - if emergently needed - unstable V.tach, sustained V.tach can use lidocaine as agent in addition to calling [facility] cardiology - recommend device interrogation Renal: YVONNE - likely multi-factorial - improving I&O: Intake & Output 07/19/21 07/20/21 07/21/21 07/22/21 23:59 23:59 23:59 23:59 Intake Total 843.333 / 843.333 906.667 / 906.667 Output Total 525 / 525 1000 / 1000 Balance 318.333 / 318.333 -93.333 / -93.333 Weight 71.21 kg 70 kg Daily Fluid Goal:: even GI Nutrition: OK for diet Date of Last Bowel Movement: 07/19/21 Infectious Disease: No acute concerns Hematologic: No acute concerns Neurologic: No acute concerns Endocrine: No acute concerns Lines: PIV Prophylaxis: Recommend DVT ppx No need for GI ppx Code Status: Resuscitation Status Full Code Subjective Critical and life-threatening events over the past 24 hours: This is a 76 yo man, whom I know well and treat for COPD and amiodarone pulmonary toxicity. He has been stopped on his amiodarone and underwent VT ablation with Dr. Hernández. Dr. Hernández called me a couple weeks ago as labs completed 2 days prior found a Na of 122 and he has been developing a cough. I saw him in my clinic shortly after the call where we repeated his labs, which found the 122 was likely a lab error. I did think his cough was possible due to an infectious etiology so I started him on prednisone and Levaquin. He told me he took the Levaquin for 2 doses but it made him very sick on Tuesday and into Tuesday. He was vomiting and has an aversion to food so stopped taking it. He tells me he was remaining well hydrated throughout the weekend. After those initial vomiting episodes, he did not continue vomiting. He thinks the prednisone was helping his cough and breathing. On Tuesday he started feeling a little funny with some lightheadedness. When we got up Tuesday this feeling worsened to the point of his being concerned that he would pass out. He then reported to the ED. It was discovered that he was having runs of V tach and SVT. He did not have any defibrillations occur. While admitted to med/surg he had nonsustained V.tach and what looks like potentially SVT versus A. flutter with aberrancy. He states that he is having cardiac sensation of these events. He does continue to have a cough but it is slightly improved and his breathing is improved after the prednisone course. Exam Const General: no acute distress Nutritional Appearance: well nourished [facility] Head: normocephalic Ears: external ears normal and no periauricular adenopathy General nose exam: nasal mucous membranes and turbinates normal Face and sinus: sinuses nontender Mouth: oropharynx normal and moist mucous membranes Teeth and gingiva: dentition normal Eyes General: appearance normal, both eyes and all related structures Pupils: PERRL Neck Neck: normal visual inspection and no lymphadenopathy Chest Chest: normal inspection of the chest Resp Effort & Inspection: normal respiratory effort Auscultation: clear to auscultation bilaterally, no rales, no rhonchi and no wheezes Cardio Rate: regular rate Rhythm: regular rhythm Heart Sounds: S1 normal, S2 normal and no murmurs Pulses: radial pulses present bilaterally GI Inspection: normal to inspection Palpation: soft Skin General skin exam: no rashes or lesions noted Neuro General: patient alert, patient awake and patient oriented x3 Extrem General: no clubbing, cyanosis or edema Psych Mental Status: mental status grossly normal Affect: normal affect Attitude: cooperative Most Recent VS/Results Last Vital Signs Temp 36.7 C 07/22/21 04:16 Pulse 59 L 07/22/21 07:01 Resp 22 07/22/21 07:20 BP 110/61 07/22/21 07:01 Pulse Ox 95 07/22/21 07:20 Laboratory Results - last 24 hr 07/21/21 07/21/21 07/21/21 12:40 12:40 12:40 WBC 9.61 RBC 4.61 Hgb 13.6 Hct 41.7 MCV 90.5 MCH 29.5 MCHC 32.6 RDW 13.8 Plt Count 306 MPV 10.0 Immature Gran % 0.3 Neutrophils % 78.1 Lymphocytes % 14.0 Monocytes % 6.3 Eosinophils % 0.7 Basophils % 0.6 Nucleated RBC % 0 Absolute Neutrophils 7.49 H Absolute Lymphocytes 1.35 Absolute Monocytes 0.61 Absolute Eosinophils 0.07 Absolute Basophils 0.06 VBG Lactate Sodium Cancelled 137 Potassium Cancelled 3.7 Chloride Cancelled 100 Carbon Dioxide Cancelled 26.1 Anion Gap Cancelled 10.9 BUN Cancelled 28 H Creatinine Cancelled 1.6 H Estimated GFR/1.73 m2 Cancelled 42.35 Glucose Cancelled 198 H Calcium Cancelled 9.3 Magnesium 1.9 Total Bilirubin Cancelled 0.4 AST Cancelled 13 L ALT Cancelled 13 L Alkaline Phosphatase Cancelled 68 Troponin I < 50 NT-Pro-B Natriuret Pep 677 H Total Protein Cancelled 8.8 H Albumin Cancelled 3.1 L TSH Cancelled 1.75 COVID-19 Source SARS-CoV-2 (PCR) 07/21/21 07/21/21 07/21/21 12:40 13:15 15:40 WBC RBC Hgb Hct MCV MCH MCHC RDW Plt Count MPV Immature Gran % Neutrophils % Lymphocytes % Monocytes % Eosinophils % Basophils % Nucleated RBC % Absolute Neutrophils Absolute Lymphocytes Absolute Monocytes Absolute Eosinophils Absolute Basophils VBG Lactate 1.7 H Sodium Potassium Chloride Carbon Dioxide Anion Gap BUN Creatinine Estimated GFR/1.73 m2 Glucose Calcium Magnesium Cancelled Total Bilirubin AST ALT Alkaline Phosphatase Troponin I < 50 NT-Pro-B Natriuret Pep Cancelled Total Protein Albumin [facility] COVID-19 Source SARS-CoV-2 (PCR) 07/21/21 07/21/21 07/22/21 15:40 21:20 06:30 WBC RBC Hgb Hct MCV MCH MCHC RDW Plt Count MPV Immature Gran % Neutrophils % Lymphocytes % Monocytes % Eosinophils % Basophils % Nucleated RBC % Absolute Neutrophils Absolute Lymphocytes Absolute Monocytes Absolute Eosinophils Absolute Basophils VBG Lactate Sodium 138 Potassium 4.1 Chloride 107 Carbon Dioxide 24.6 Anion Gap 6.4 BUN 19 H D Creatinine 1.3 Estimated GFR/1.73 m2 53.82 Glucose 156 H Calcium 8.7 Magnesium Total Bilirubin AST ALT Alkaline Phosphatase Troponin I < 50 < 50 NT-Pro-B Natriuret Pep Total Protein Albumin [facility] COVID-19 Source Nasal/Nares SARS-CoV-2 (PCR) Negative 07/22/21 06:30 WBC 7.68 RBC 4.01 L Hgb 11.7 L Hct 36.0 L MCV 89.8 MCH 29.2 MCHC 32.5 RDW 13.9 Plt Count 212 MPV 10.2 Immature Gran % 0.3 Neutrophils % 67.5 Lymphocytes % 21.0 Monocytes % 7.7 Eosinophils % 2.7 Basophils % 0.8 Nucleated RBC % 0 Absolute Neutrophils 5.19 Absolute Lymphocytes 1.61 Absolute Monocytes 0.59 Absolute Eosinophils 0.21 Absolute Basophils 0.06 VBG Lactate Sodium Potassium Chloride Carbon Dioxide Anion Gap BUN Creatinine Estimated GFR/1.73 m2 Glucose Calcium Magnesium Total Bilirubin AST ALT Alkaline Phosphatase Troponin I NT-Pro-B Natriuret Pep Total Protein Albumin [facility] COVID-19 Source SARS-CoV-2 (PCR) Review of Systems All systems reviewed & are unremarkable except as noted in HPI and below Time spent with patient Time spent in Critical Care: 45 Time spent in Critical care included: Coordination of care, Chart review, Documenting critically ill care, Time at immediate bedside and Discussing cri tically ill care with other medical staff
--- NOTE | 2021-07-22 09:32 | PDOC.CMIN ---
- If Service Date Differs Date of service: 07/22/21 Time of Service: 09:33 Care Management Initial Assess REASON FOR HOSPITALIZATION:: YVONNE PAST MEDICAL HISTORY/PAST SURGICAL HISTORY:: All Active Problems . Acute kidney injury (Acute). Pneumonia (Acute). Hyponatremia (Acute). Coronary artery disease (Chronic). Pulmonary nodules (Acute). Tremor (Acute). Cervical myelopathy (Acute). COPD (chronic obstructive pulmonary disease) (Chronic). Amiodarone pulmonary toxicity (Acute). Diabetes type 2, controlled (Chronic). Discharge planning issues (Acute). DVT prophylaxis (Acute). Non-ST elevation AR (NSTEMI) (Acute). Pulmonary infiltrate (Acute). Carpal tunnel syndrome on both sides (Acute). Abnormality of lung on chest x-ray (Acute). Ischemic cardiomyopathy (Chronic). Hx of CABG (Chronic). Paresthesia of hand, bilateral (Acute). Cognitive complaints (Acute). AICD (automatic cardioverter/defibrillator) present (Acute). Biventricular [employer] ICD 2014. Medical History (Updated 07/21/21 @ 15:43 by Nydia Martell NP). Coronary artery disease. Depression. Hyperlipidemia. Hypertension. On amiodarone therapy. Ventricular tachycardia. Surgical History . S/P cervical discectomy PREVIOUS FUNCTIONAL STATUS/SOCIAL/FAMILY SUPPORTS:: Nahun lives alone in an apartment in [place] [facility]. 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 He has 2 sons; one son lives in [place], [place] and the other lives in [place], [place]. Nahun is independent at baseline and uses a cane occasionally. CURRENT FUNCTIONAL STATUS:: Nahun was sitting on the side of his bed when CM met with him. He was polite but guarded in his responses. 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 He has been at his current [employer] for about a year and a half and will remain until a new cake icer can be found. ADVANCE DIRECTIVES:: none on file. CM explained the document and provided Nahun with a blank copy of the [employer] AD forms. Has patient been provided with info about the portal/API?: Yes Did the patient sign up for the portal?: Yes (previously) CODE STATUS:: Full Code INSURANCE COVERAGE / FINANCIAL ISSUES:: [employer] Medicare Replacement CURRENT HOME/COMMUNITY SERVICES/EQUIPMENT:: none PRIMARY CARE PHYSICIAN:: Forrest Crandall. Associated with [facility] in [place], [place]. POTENTIAL DISCHARGE NEEDS:: follow up with PCP and plan of care PATIENT/FAMILY EDUCATION NEEDS:: Review of discharge instructions, limitations, medications, activity, Ask Me Three TRANSPORTATION:: via private vehicle PLAN:: Nahun will likely be discharged home with no new services. He will follow up with his PCP and plan of care and transport via private vehicle with family. CM will continue to support Nahun and assess for ongoing discharge needs.
--- NOTE | 2021-07-22 11:50 | CHAPLAIN ---
Nahun was resting in bed when I visited. 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 He's been here about two years and has an apartment in [facility]. He son lives in [place], [place] and Nahun said his PCP is there, but he's been treated by several doctors here as well as [facility]. 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
[2021-07-22] MEDS: Enoxaparin 40 MG/0.4 ML SYR SC (12:10)
--- NOTE | 2021-07-22 13:16 | PGE_ITS ---
Date of Service Date of service: 07/22/21 Time of Service: 13:16 Assessment and Plan Assessment and plan (1) Acute kidney injury: Status: Acute Assessment and plan: thought to be pre-renal d/t dehydration from recent GI symptoms of vomiting and nausea Intermittent SVT / VT. Pacemaker interrogated with rate that allows ATP to be employed was lowered. Goal is to increase metoprolol to 300mg longacting; now has 50mg short acting equivalent to 250mg daily. However, SBP of 90 so a dose of metoprolol was held. IV NS 500ml bolus. (2) Amiodarone pulmonary toxicity: Status: Acute Assessment and plan: followed by pulmonary. has been off amiodarone (3) COPD (chronic obstructive pulmonary disease): Status: Chronic Assessment and plan: stable, continue home meds (4) Ischemic cardiomyopathy: Status: Chronic Assessment and plan: A1CD which has been interogated and shows episodes of SVT, no over-ride. no episodes since hydrated. admitted on telemetry continue entresto (5) Diabetes type 2, controlled: Status: Chronic Assessment and plan: diabetic diet, sliding scale ac/hs, will hold metformin while hospitalized and until creatinine improved hemoglobin A1C 8.7 on jul 15 Glucose readings within goal of 140-180. (6) DVT prophylaxis: Status: Acute Assessment and plan: heparin sq, teds (7) Discharge planning issues: Status: Acute Assessment and plan: anticipate discharge to home with no services once medically stable. Subjective Subjective Patient reports: no new complaints and afebrile; denies nausea, vomiting and shortness of breath Interval history since last seen: No near syncope, syncope Exam Narrative Exam Narrative: Sitting in chair. Const General: cooperative and no acute distress [facility] Head: normal to inspection Eyes Pupils: PERRL Resp Effort & Inspection: normal respiratory effort Auscultation: clear to auscultation bilaterally Cardio Rate: regular rate Rhythm: regular rhythm Skin General skin exam: no rashes or lesions noted Neuro General: patient alert and patient oriented x3 Cranial Nerves: CN's II-XI intact bilaterally and tongue midline Cognition: normal cognition Speech: speech normal Extrem General: no pedal edema and no calf tenderness Objective Last Vital Signs Temp 37.3 C 07/22/21 08:15 Pulse 64 07/22/21 12:03 Resp 27 H 07/22/21 12:03 BP 90/43 L 07/22/21 12:03 Pulse Ox 95 07/22/21 11:06 Laboratory Results - last 24 hr 07/21/21 07/21/21 07/21/21 12:40 12:40 12:40 WBC 9.61 RBC 4.61 Hgb 13.6 Hct 41.7 MCV 90.5 MCH 29.5 MCHC 32.6 RDW 13.8 Plt Count 306 MPV 10.0 Immature Gran % 0.3 Neutrophils % 78.1 Lymphocytes % 14.0 Monocytes % 6.3 Eosinophils % 0.7 Basophils % 0.6 Nucleated RBC % 0 Absolute Neutrophils 7.49 H Absolute Lymphocytes 1.35 Absolute Monocytes 0.61 Absolute Eosinophils 0.07 Absolute Basophils 0.06 VBG Lactate Sodium Cancelled 137 Potassium Cancelled 3.7 Chloride Cancelled 100 Carbon Dioxide Cancelled 26.1 Anion Gap Cancelled 10.9 BUN Cancelled 28 H Creatinine Cancelled 1.6 H Estimated GFR/1.73 m2 Cancelled 42.35 Glucose Cancelled 198 H Calcium Cancelled 9.3 Magnesium 1.9 Total Bilirubin Cancelled 0.4 AST Cancelled 13 L ALT Cancelled 13 L Alkaline Phosphatase Cancelled 68 Troponin I < 50 NT-Pro-B Natriuret Pep 677 H Total Protein Cancelled 8.8 H Albumin Cancelled 3.1 L TSH Cancelled 1.75 COVID-19 Source SARS-CoV-2 (PCR) 07/21/21 07/21/21 07/21/21 12:40 13:15 15:40 WBC RBC Hgb Hct MCV MCH MCHC RDW Plt Count MPV Immature Gran % Neutrophils % Lymphocytes % Monocytes % Eosinophils % Basophils % Nucleated RBC % Absolute Neutrophils Absolute Lymphocytes Absolute Monocytes Absolute Eosinophils Absolute Basophils VBG Lactate 1.7 H Sodium Potassium Chloride Carbon Dioxide Anion Gap BUN Creatinine Estimated GFR/1.73 m2 Glucose Calcium Magnesium Cancelled Total Bilirubin AST ALT Alkaline Phosphatase Troponin I < 50 NT-Pro-B Natriuret Pep Cancelled Total Protein Albumin TSH COVID-19 Source SARS-CoV-2 (PCR) 07/21/21 07/21/21 07/22/21 15:40 21:20 06:30 WBC RBC Hgb Hct MCV MCH MCHC RDW Plt Count MPV Immature Gran % Neutrophils % Lymphocytes % Monocytes % Eosinophils % Basophils % Nucleated RBC % Absolute Neutrophils Absolute Lymphocytes Absolute Monocytes Absolute Eosinophils Absolute Basophils VBG Lactate Sodium 138 Potassium 4.1 Chloride 107 Carbon Dioxide 24.6 Anion Gap 6.4 BUN 19 H D Creatinine 1.3 Estimated GFR/1.73 m2 53.82 Glucose 156 H Calcium 8.7 Magnesium Total Bilirubin AST ALT Alkaline Phosphatase Troponin I < 50 < 50 NT-Pro-B Natriuret Pep Total Protein Albumin TSH COVID-19 Source Nasal/Nares SARS-CoV-2 (PCR) Negative 07/22/21 06:30 WBC 7.68 RBC 4.01 L Hgb 11.7 L Hct 36.0 L MCV 89.8 MCH 29.2 MCHC 32.5 RDW 13.9 Plt Count 212 MPV 10.2 Immature Gran % 0.3 Neutrophils % 67.5 Lymphocytes % 21.0 Monocytes % 7.7 Eosinophils % 2.7 Basophils % 0.8 Nucleated RBC % 0 Absolute Neutrophils 5.19 Absolute Lymphocytes 1.61 Absolute Monocytes 0.59 Absolute Eosinophils 0.21 Absolute Basophils 0.06 VBG Lactate Sodium Potassium Chloride Carbon Dioxide Anion Gap BUN Creatinine Estimated GFR/1.73 m2 Glucose Calcium Magnesium Total Bilirubin AST ALT Alkaline Phosphatase Troponin I NT-Pro-B Natriuret Pep Total Protein Albumin TSH COVID-19 Source SARS-CoV-2 (PCR)
--- NOTE | 2021-07-22 15:31 | DI.US_ITS ---
APPROVED REPORT EXAM: Comprehensive 2D, Doppler, and color-flow Echocardiogram Patient Location: In-Patient Room/Bed: AES794 Car Wash Attendant Automatic: Janessa Norris RDCS (AE) Indications: Episode of V Tach, SVT Other Information Study Quality: Fair. Technically limited study due to body habitus, inability to position patient exa m done supine bedside icu. Conclusion Borderline dilated left ventricle. Normal left ventricular wall thickness. Estimated ejection fract ion is moderately reduced. EF 35%. There are wall motion abnormalities involving the inferolateral inferoapical and anterolateral segments Normal right ventricular size and systolic function Device lead noted in the right heart Both atria are normal in size Mildly sclerotic trileaflet aortic valve. Mild aortic regurgitation Normal mitral valve. Mild to moderate mitral regurgitation Normal tricuspid valve with mild regurgitation. Normal estimated right ventricular systolic pressure Compared to an echocardiogram from March 11, 2021 there is no significant interval change Wall motion Left Ventricle Left ventricle is borderline dilated. Left ventricular systolic function is moderately decreased. The re is normal left ventricular wall thickness. Regional wall motion abnormalities are noted. There is no ventricular septal defect visualized. LVEF is 34%. Right Ventricle Right ventricle is grossly normal in size. The right ventricular systolic function is normal. The RVS P is 21.5mmHg. Device lead is present in the right ventricle. Atria The left atrium size is normal. The right atrium size is normal. The interatrial septum is intact wit h no evidence for an atrial septal defect. Aortic Valve The aortic valve is mildly sclerotic Aortic valve is trileaflet. There is no aortic valvular stenosis . Mild aortic regurgitation. Mitral Valve The mitral valve is normal in structure. No evidence of mitral valve stenosis. Mild to moderate ree l regurgitation. Tricuspid Valve The tricuspid valve is normal in structure. There is no tricuspid valve stenosis. Mild tricuspid regu rgitation. Pulmonic Valve Pulmonic valve is not well visualized. There is no pulmonic valvular stenosis. There is no pulmonic v alvular regurgitation. Great Vessels The aortic root is normal in size. Ascending aorta is not well visualized. Aortic arch is normal in c aliber. IVC is normal in size and collapses >50% with inspiration. Pericardium There is no pericardial effusion. 2D Dimensions IVSD d PLAX 1.00 cm M: 0.6-1.2 LV Vol A2C d MOD 103.8 mL LVPW d PLAX 1.02 cm M: 0.6 - 1.2 LV Vol A4C d MOD 125.5 mL LVID d PLAX 5.89 cm M: 4.2 - 5.8 LA vol/ BSA A2C s A-L 21.1 mL/m2 LVDs 4.95 cm M: 2.5 - 4.0 LA vol/ BSA A4C s A-L 20.9 mL/m2 Ao Root d 3.19 cm M: 3.1 - 3.7 LA Vol/ BSA Biplane s A-L 21.7 mL/m2 RA Area A4C 17.98 cm2 LA Area A4C s MOD 14.96 cm2 RA Vol/ BSA A4C s A-L 31.0 mL/m2 LA Area A2C s MOD 15.52 cm2 LV EF Teichholz 32.3 % LV EF A4C MOD 33.1 % LVEF ([facility]) 36.65 % M: 52 - 72 LV EF A2C MOD 34.3 % LV Volume 93.01 mL M: 62 - 150 LV EF Biplane MOD 36.7 % LV Volume Index 70.13 mL/m2 M: 34 - 74 SV 43.74 mL LV Vol Biplane MOD 119.3 mL SV Index 24.44 mL/m2 FS 15.55 % M-Mode TAPSE 1.42 cm (M/F) >1.7 LV Diastology MV E' medial 0.066 (>0.07 m/s) E/A Ratio 0.7 LV E/e MED 7.30 (<14) MV E Vmax 0.48 (0.4-1.3 m/s) MV E' lateral 0.048 (>0.1 m/s) MV A Vmax 0.65 (0.4-1.3 m/s) LV E/e LAT 10.00 (<14) MV E/A Ratio 0.73 MV E/E' medial 7.31 MV E/E' lateral 10.03 Aortic Valve LVOT Area 2.94 cm2 AoV Area Vmax 2.55 cm2 LVOT Vmax 0.86 m/s AoV Area/ BSA (Vmax) 1.43 cm2/m2 LVOT Mean Ramos. 0.54 m/s ELOISE Mean Ramos. 2.57 cm2 LVOT Peak Grad 2.9 mmHg ELOISE Mean Ramos. Index 1.43 cm2/m2 LVOT Mean Grad 1.4 mmHg AR DT 3419 msec LVOT VTI 0.144 m AR PHT 992 msec LVOT Diam s 1.90 cm AoV Vmax 0.99 m/s Velocity Ratio 0.86 AoV Mean Ramos. 0.61 m/s AoV Peak Grad 3.9 mmHg LVOT SV 42.47 mL AoV Mean Grad 1.8 mmHg AoV VTI 0.146 m AoV Area VTI 2.90 cm2 AoV Area/ BSA (VTI) 1.62 cm/m2 Mitral Valve MV DT 240 (160-240 msec) MV PHT 70 msec MV Area PHT 3.16 cm2 MV VTI 0.321 m MV Area VTI 1.32 (4.0-6.0 cm2) Pulmonary Valve PV Vmax 0.98 (0.5-1.5 m/s) RVOT Peak Gr. 0.86 mmHg PV Peak Grad 3.8 mmHg RVOT Mean Gr. 0.40 mmHg PV Mean Grad 2.0 mmHg RVOT VTI 0.062 m PV VTI 0.143 m RVOT Vmax 0.46 m/s Tricuspid Valve TR Peak Grad 18.5 mmHg TR Vmax 2.15 m/s RA Pressure 3.00 mmHg RVSP (TR) 21.5 mmHg
[2021-07-22] MEDS: Omnipaque 350 MG/ML 100 ML BTL IJ (16:44)
[2021-07-23] VITALS (78 sets, daily range): BP systolic 74–116; BP diastolic 38–80; PULSE 55–103; RESP 8–37; TEMP 36.6–36.8; O2SAT 92–96
[2021-07-23] MEDS: Metoprolol 50 MG TAB PO (06:00)
[2021-07-23] MEDS: Docusate Sodium 100 MG CAP 400 MG PO (08:34)
[2021-07-23] MEDS: Isosorbide Mononitrate 10 MG TAB 15 MG PO (08:34)
[2021-07-23] MEDS: Sacubitril/Valsartan 24 mg/26 mg TAB 2 EACH PO ×2 (08:35→19:23)
[2021-07-23] MEDS: Cyanocobalamin 500 MCG TAB 1000 MCG PO (08:35)
[2021-07-23] MEDS: Rosuvastatin 10 MG TAB 20 MG PO (08:36)
[2021-07-23] MEDS: Aspirin E.C. 81 MG TABEC PO (08:36)
[2021-07-23] MEDS: Insulin Aspart 300 UNITS/3 ML PEN SC ×3 (08:39→17:15)
--- NOTE | 2021-07-23 10:28 | PDOC.CMDIS ---
- If Service Date Differs Date of service: 07/23/21 Time of Service: 10:28 LACE Index Scoring Tool - Questions: Length of Stay (in days): 2 Acuity (Admit via E.D.?): Yes Comorbidities: Diabetes w/o Complication, Chronic Pulmonary Disease E.D. Visits: 2 - Answers: Total Score: 10 Risk of Readmission: High Risk Care Management Discharge Reason for Hospitalization: YVONNE Discharge Plan: Nahun will discharge home with no new services. He will follow up with his PCP and plan of care and transport via private vehicle with family. Patient/Family Education Needs: Review discharge instructions, discuss Ask Me Three.
[2021-07-23] MEDS: Metoprolol CR 100 MG TABCR 250 MG PO (10:36)
[2021-07-23] MEDS: Enoxaparin 40 MG/0.4 ML SYR SC (11:48)
--- NOTE | 2021-07-23 15:00 | W.PM.PROGNOT ---
Date of Service Date of service: 07/23/21 Time of Service: 15:00 Assessment and Plan Assessment and plan (1) Acute kidney injury: Status: Acute Assessment and plan: thought to be pre-renal d/t dehydration from recent GI symptoms of vomiting and nausea Creatinine now improved from 1.5 to 1.3. (2) Amiodarone pulmonary toxicity: Status: Acute Assessment and plan: followed by pulmonary. has been off amiodarone (3) COPD (chronic obstructive pulmonary disease): Status: Chronic Assessment and plan: stable, continue home meds (4) Ischemic cardiomyopathy: Status: Chronic Assessment and plan: A1CD which has been interogated and shows episodes of SVT, no over-ride. no episodes since hydrated. admitted on telemetry continue entresto Echocardiogram with EF of 30-35%; same as most recent previous echo. No wall motion abnormalities. (5) Diabetes type 2, controlled: Status: Chronic Assessment and plan: diabetic diet, sliding scale ac/hs, will hold metformin while hospitalized and until creatinine improved hemoglobin A1C 8.7 on jul 15 Glucose readings within goal of 140-180. (6) DVT prophylaxis: Status: Acute Assessment and plan: Lovenox. (7) Discharge planning issues: Status: Acute Assessment and plan: anticipate discharge to home with no services once medically stable. (8) Ventricular tachycardia: Status: Chronic Assessment and plan: Intermittent SVT / VT. Pacemaker interrogated with rate that allows ATP to be employed was lowered. Goal is to increase metoprolol. Cardiology suggested 300mg daily if tolerates. Today started 250mg metoprolol XL. SBP soft; as low as in the 70's with ambulation. Not likely to tolerate any further increases, if he can even tolerate 250mg dose. Will d/w EP cardiology at [facility] tomorrow. They had mentioned Mexiletine if fails increased BB dosage. Cont to monitor. Subjective Subjective Patient reports: no new complaints and afebrile; denies shortness of breath Interval history since last seen: Mildly lightheaded this afternoon with ambulation; SBP into the 70's at that time. No CP/palpitations. No AICD firing. Exam Narrative Exam Narrative: Sitting in chair. Const General: cooperative and no acute distress HENMT Head: normal to inspection Eyes Pupils: PERRL Resp Effort & Inspection: normal respiratory effort Auscultation: rales (faint) Cardio Rate: regular rate Rhythm: regular rhythm Skin General skin exam: no rashes or lesions noted Neuro General: patient alert and patient oriented x3 Cranial Nerves: CN's II-XI intact bilaterally and tongue midline Cognition: normal cognition Speech: speech normal Extrem General: no pedal edema and no calf tenderness Objective Last Vital Signs Temp 36.6 C 07/23/21 13:30 Pulse 60 07/23/21 14:40 Resp 23 07/23/21 14:40 BP 98/50 L 07/23/21 14:40 Pulse Ox 95 07/23/21 14:40
--- NOTE | 2021-07-23 15:29 | PHA.REVIEW ---
Pharmacy Admission Review - Admission Clinical Review (Last Reviewed 07/08/21 @ 10:41 by Ann Castro MD) Acute kidney injury (Acute) Amiodarone pulmonary toxicity (Acute) Discharge planning issues (Acute) DVT prophylaxis (Acute) AICD (automatic cardioverter/defibrillator) present (Acute) erythromycin base Allergy (Verified 07/15/21 12:12) amiodarone Adverse Reaction (Severe, Verified 07/15/21 12:12) pneumonitis and neuropathy Resuscitation Status Full Code Height 5 ft 6 in Weight 70 kg - Renal Dosing Renal Dosing: BUN 19 mg/dL (7-18) H D 07/22/21 06:30 Creatinine 1.3 mg/dL (0.70-1.30) 07/22/21 06:30 Medications needing adjustments: Reviewed - Anticoagulation Anticoagulation: Hgb 11.7 g/dL (13.5-17.5) L 07/22/21 06:30 Hct 36.0 % (40.0-50.0) L 07/22/21 06:30 Plt Count 212 10^3/uL (130-400) 07/22/21 06:30 Creatinine 1.3 mg/dL (0.70-1.30) 07/22/21 06:30 DVT Prophylaxis: Reviewed Medications: Enoxaparin - Opiate Usage Evaluate Pain Scale/Pains Meds: N/A - Relevant Labs Sodium 138 mmol/L (136-145) 07/22/21 06:30 Potassium 4.1 mmol/L (3.5-5.1) 07/22/21 06:30 Chloride 107 mmol/L (98-107) 07/22/21 06:30 Magnesium 1.9 mg/dL (1.8-2.4) 07/21/21 12:40 Magnesium Cancelled 07/21/21 12:40 Electrolytes, C-Reactive P, ESR: Reviewed - DM Control DM Control: Glucose 156 mg/dL (74-106) H 07/22/21 06:30 Finger Stick Blood Glucose 142 Finger Stick Blood Glucose 142 Finger Stick Blood Glucose 142 Finger Stick Blood Glucose 195 Finger Stick Blood Glucose 195 Finger Stick Blood Glucose 195 Insulin Dosing: Reviewed (metformin at home, aspart per SS ordered while inpt) - Heart Failure/DE Heart Failure/DE: Troponin I < 50 ng/L (<or=60) 07/22/21 06:30 NT-Pro-B Natriuret Pep 677 pg/mL (<300) H 07/21/21 12:40 NT-Pro-B Natriuret Pep Cancelled 07/21/21 12:40 EF%, SEVERO's, B-Blockers, Diuretics: Reviewed - BP Control BP Control: Blood Pressure [Standing] 92/51 Blood Pressure [Standing] 103/56 Blood Pressure [Sitting] 90/52 Blood Pressure [Sitting] 99/56 Blood Pressure [Supine] 88/41 Blood Pressure [Supine] 95/55 Blood Pressure [Left Arm] 103/53 Blood Pressure 98/50 Blood Pressure 90/49 Blood Pressure 92/51 Blood Pressure 87/50 Blood Pressure 82/54 Blood Pressure 90/47 Blood Pressure 74/43 Blood Pressure 83/48 Blood Pressure 85/50 Blood Pressure 89/53 Blood Pressure 88/41 Blood Pressure 90/52 Blood Pressure 92/51 Blood Pressure 103/56 Blood Pressure 99/56 Blood Pressure 95/55 Blood Pressure 103/56 Blood Pressure 103/53 Blood Pressure 105/79 Blood Pressure 116/80 Blood Pressure 112/62 Blood Pressure 103/43 Blood Pressure 114/57 Blood Pressure 111/55 If elevated: Reviewed (metoprolol xl 250 started this am from metoprolol 50mg q4h; slow titrate up to 300mg total per cardio recommendation however his BPs have been very soft) - IV to PO Switch IV Medications: Reviewed - Home Meds Home Med List reviewed: Reviewed Relevent Home Meds Not ordered & why?: not ordered: amlodipine, benzonatate, CoQ10, metformin, lovaza (omega 3) - Current meds Current Medication Order Review: Reviewed
--- NOTE | 2021-07-23 16:14 | CMPROGNOTE_ITS ---
- If Service Date Differs Date of service: 07/23/21 Time of Service: 16:14 Care Management Progress Note S/O: Discharge cancelled due to need for oral medication adjustments per MD and RN. No change to overall plan. CM continues to follow. A: 76 year old male admitted to [facility] on 07/21/21 for Dehydration P: Discharge cancelled due to need for oral medication adjustment. Nahun will discharge home with no new services. He will follow up with his PCP and plan of care and transport via private vehicle with family.
[2021-07-23] MEDS: Normal Saline Flush 10 ML SYR IVP (19:24)
[2021-07-24] VITALS (64 sets, daily range): BP systolic 75–142; BP diastolic 49–121; PULSE 55–92; RESP 12–29; TEMP 36.3–37.1; O2SAT 93–97
[2021-07-24] MEDS: Insulin Aspart 300 UNITS/3 ML PEN SC ×4 (08:40→21:35)
[2021-07-24] MEDS: Rosuvastatin 10 MG TAB 20 MG PO (09:20)
[2021-07-24] MEDS: Aspirin E.C. 81 MG TABEC PO (09:24)
[2021-07-24] MEDS: Cyanocobalamin 500 MCG TAB 1000 MCG PO (09:25)
[2021-07-24] MEDS: Docusate Sodium 100 MG CAP 400 MG PO (09:25)
[2021-07-24] MEDS: Isosorbide Mononitrate 10 MG TAB 15 MG PO (09:25)
[2021-07-24] MEDS: Sacubitril/Valsartan 24 mg/26 mg TAB 2 EACH PO ×2 (09:26→20:01)
[2021-07-24] MEDS: Metoprolol CR 100 MG TABCR 200 MG PO (09:38)
--- NOTE | 2021-07-24 10:56 | NUR.NOTE ---
Patient given a cup of ice water and is encouraged to drink.Nursing Note:
[2021-07-24] MEDS: Enoxaparin 40 MG/0.4 ML SYR SC (11:53)
--- NOTE | 2021-07-24 13:38 | W.PM.PROGNOT ---
Date of Service Date of service: 07/24/21 Time of Service: 13:38 Assessment and Plan Assessment and plan (1) Acute kidney injury: Status: Acute Assessment and plan: thought to be pre-renal d/t dehydration from recent GI symptoms of vomiting and nausea Creatinine now improved from 1.5 to 1.3. Encourage good oral hydration. BMP in AM (2) Amiodarone pulmonary toxicity: Status: Acute Assessment and plan: followed by pulmonary. has been off amiodarone (3) COPD (chronic obstructive pulmonary disease): Status: Chronic Assessment and plan: stable, continue home meds (4) Ischemic cardiomyopathy: Status: Chronic Assessment and plan: A1CD which has been interogated and shows episodes of SVT, no over-ride. no episodes since hydrated. admitted on telemetry continue entresto, but if cannot improve BP may need to consider holding. Echocardiogram with EF of 30-35%; same as most recent previous echo. No wall motion abnormalities. (5) Diabetes type 2, controlled: Status: Chronic Assessment and plan: diabetic diet, sliding scale ac/hs, will hold metformin while hospitalized and until creatinine improved hemoglobin A1C 8.7 on jul 15 Glucose readings within goal of 140-180. (6) DVT prophylaxis: Status: Acute Assessment and plan: Lovenox. (7) Discharge planning issues: Status: Acute Assessment and plan: anticipate discharge to home with no services once medically stable. (8) Ventricular tachycardia: Status: Chronic Assessment and plan: Intermittent SVT / VT. Pacemaker interrogated with rate that allows ATP to be employed was lowered. Goal is to increase metoprolol. Cardiology suggested 300mg daily if tolerates. Metoprolol 250mg po initiated on 07/23. SBP decreased into the 80's intermittently. Decreased Metoprolol back to his usual 200mg daily and added midodrine 2.5mg TID. If midodrine effective can attempt to titrate metoprolol upward again. Subjective Subjective Patient reports: no new complaints, tolerating a regular diet and afebrile; denies nausea, vomiting or shortness of breath Interval history since last seen: No presyncope, syncope No palpitations. Exam Narrative Exam Narrative: Sitting in chair. Const General: cooperative and no acute distress HENMT Head: normal to inspection Eyes Pupils: PERRL Resp Effort & Inspection: normal respiratory effort Auscultation: clear to auscultation bilaterally and rales (faint) Cardio Rate: regular rate Rhythm: regular rhythm Skin General skin exam: no rashes or lesions noted Neuro General: patient alert and patient oriented x3 Cranial Nerves: CN's II-XI intact bilaterally and tongue midline Cognition: normal cognition Speech: speech normal Extrem General: no pedal edema and no calf tenderness Psych Appearance: grossly normal Speech and Movement: speech and movement normal Mood: congruent mood Affect: normal affect Objective Last Vital Signs Temp 36.3 C L 07/24/21 13:01 Pulse 63 07/24/21 13:01 Resp 17 07/24/21 13:01 BP 102/63 07/24/21 13:01 Pulse Ox 96 07/24/21 13:01
[2021-07-24] MEDS: Midodrine 2.5 MG TAB PO ×2 (14:46→20:01)
--- NOTE | 2021-07-24 16:34 | PDOC.CMPRO ---
Care Management Progress Note S/O: Discharge cancelled, pacemaker interrogated today with new medication recommendations. No change to overall discharge plan. CM continues to follow. A: 76 year old male admitted to [facility] on 07/21/21 for Dehydration P: Discharge cancelled due to need for oral medication adjustment. Nahun will discharge home with no new services. He will follow up with his PCP and plan of care and transport via private vehicle with family.
[2021-07-24] MEDS: Normal Saline Flush 10 ML SYR IVP ×2 (18:35→18:37)
[2021-07-25] VITALS (27 sets, daily range): BP systolic 82–120; BP diastolic 43–74; PULSE 57–106; RESP 15–25; TEMP 36.2–37.9; O2SAT 93–95
[2021-07-25 07:08] LABS: Abs Immature Grans 0.04 10^3/uL (0.0-0.06); Absolute Basophil Count 0.06 10^3/uL (0.0-0.2); Absolute Eosinophil Count 0.23 10^3/uL (0.0-0.7); Absolute Lymphocyte Count 1.14 10^3/uL (1.2-3.4); Absolute Monocyte Count 0.73 10^3/uL (0.1-0.8); Absolute Neutrophil Count 6.65 10^3/uL (1.2-6.7); Basophils % 0.7; Eosinophils % 2.6; HCT 37.7 % (40.0-50.0); HGB 12.7 g/dL (13.5-17.5); Immature Grans % 0.5; Lymphocytes % 12.9; MCH 29.6 pg (27.0-33.0); MCHC 33.7 % (32.0-36.0); MCV 87.9 fL (80-95); MPV 10.5 fL (8.0-11.0); Monocytes % 8.2; Neutrophils % 75.1; Nucleated RBC 0 %; Platelet Count 227 10^3/uL (130-400); RBC 4.29 10^6/uL (4.36-5.78); RDW 13.9 % (11.8-14.1); RDW-SD 44.4 fL; WBC 8.85 10^3/uL (4.4-10.8)
[2021-07-25 07:19] LABS: Anion Gap 11.5 mmol/L (3-11); BUN 22 mg/dL (7-18); CO2 22.5 mmol/L (21.0-32.0); CREATININE 1.1 mg/dL (0.70-1.30); Calcium 8.6 mg/dL (8.5-10.1); Chloride 103 mmol/L (98-107); Glucose 237 mg/dL (74-106); Potassium 4.4 mmol/L (3.5-5.1); Sodium 137 mmol/L (136-145)
[2021-07-25] MEDS: Insulin Aspart 300 UNITS/3 ML PEN SC ×4 (09:06→22:08)
[2021-07-25] MEDS: Isosorbide Mononitrate 10 MG TAB 15 MG PO (09:28)
[2021-07-25] MEDS: Cyanocobalamin 500 MCG TAB 1000 MCG PO (09:28)
[2021-07-25] MEDS: Docusate Sodium 100 MG CAP 400 MG PO (09:28)
[2021-07-25] MEDS: Aspirin E.C. 81 MG TABEC PO (09:28)
[2021-07-25] MEDS: Rosuvastatin 10 MG TAB 20 MG PO (09:29)
[2021-07-25] MEDS: Midodrine 2.5 MG TAB 5 MG PO ×3 (09:29→20:02)
[2021-07-25] MEDS: Metoprolol CR 100 MG TABCR 200 MG PO (09:29)
[2021-07-25] MEDS: Sacubitril/Valsartan 24 mg/26 mg TAB 2 EACH PO ×2 (09:30→20:02)
--- NOTE | 2021-07-25 12:10 | W.PM.PROGNOT ---
Date of Service Date of service: 07/25/21 Time of Service: 12:10 Assessment and Plan Assessment and plan (1) Hypotension: Status: Acute Assessment and plan: while on imdur 15 mg PO daily, toprol XL 200 mg PO daily, entresto. Was initiated on midodrine, but we are still seeing hypotension. Will give 1 bolus of 250 cc of LR. Hold imdur. Consider decreasing entresto. (2) Ventricular tachycardia: Status: Chronic Assessment and plan: Episodic SVT / VT in setting of dehydration. ATP cut off is now 140. No recurrences overnight. Continue metoprolol at current dose if BP tolerates. If BP improves, would attempt to dial up the BB. (3) Ischemic cardiomyopathy: Status: Chronic Assessment and plan: LVEF 30-35%. s/p AICD with episodes of Vtach. As above. (4) Acute kidney injury: Status: Resolved Assessment and plan: Prerenal, due to dehydration in setting of n/v/diarrhea. Cr is now at baseline - 1.1. Continue to monitor. (5) Amiodarone pulmonary toxicity: Status: Acute Assessment and plan: Prior to this admission. Followed by pulmonary. WIll abstain from amiodarone. (6) COPD (chronic obstructive pulmonary disease): Status: Chronic Assessment and plan: Continue current regimen. (7) Diabetes type 2, controlled: Status: Chronic Assessment and plan: Add long acting insulin. Glucose readings within goal of 140-180. (8) DVT prophylaxis: Status: Acute Assessment and plan: Lovenox. (9) Discharge planning issues: Status: Acute Assessment and plan: Continues to require hospitalization. Subjective Subjective Interval history since last seen: [place] funny, though he cannot describe this to me. He no longer feels funny. He thought his blood sugar might be down, but it was >250. Denies dizziness now, chest pain, shortness of breath, nausea. Latest BP was 98/50. States he has spent most of the day in bed. Exam Narrative Exam Narrative: General: Pleasant elderly male who looks tired, A&Ox3, NAD, laying flat in bed on RA - no dyspnea/tachypnea; dry cough HEENT: EOMI, MMM Heart: RRR, no m/r/g Lungs: Crackles mid-left lung field, otherwise CTAB Abdomen: soft, nontender, nondistended Extremities: no edema BLE's Objective Last Vital Signs Temp 36.2 C L 07/25/21 09:46 Pulse 65 07/25/21 09:46 Resp 21 07/25/21 09:46 BP 96/57 L 07/25/21 09:46 Pulse Ox 93 07/25/21 09:46 Laboratory Results - last 24 hr 07/25/21 07/25/21 06:00 06:05 WBC 8.85 RBC 4.29 L Hgb 12.7 L Hct 37.7 L MCV 87.9 MCH 29.6 MCHC 33.7 RDW 13.9 Plt Count 227 MPV 10.5 Immature Gran % 0.5 Neutrophils % 75.1 Lymphocytes % 12.9 Monocytes % 8.2 Eosinophils % 2.6 Basophils % 0.7 Nucleated RBC % 0 Absolute Neutrophils 6.65 Absolute Lymphocytes 1.14 L Absolute Monocytes 0.73 Absolute Eosinophils 0.23 Absolute Basophils 0.06 Sodium 137 Potassium 4.4 Chloride 103 Carbon Dioxide 22.5 Anion Gap 11.5 H BUN 22 H Creatinine 1.1 Estimated GFR/1.73 m2 >= 60.00 Glucose 237 H D Calcium 8.6
[2021-07-25] MEDS: Enoxaparin 40 MG/0.4 ML SYR SC (12:13)
[2021-07-25] MEDS: Lactated Ringers 500 ML 250 ML IV (12:14)
[2021-07-25] MEDS: Nystatin 500000 UNITS/5 ML SUSP 5ML CUP PO ×2 (15:33→20:01)
--- NOTE | 2021-07-25 17:45 | DI.RAD_ITS ---
Exam(s) XR PORTABLE CHEST AP EXAM: XR PORTABLE CHEST AP CLINICAL HISTORY: Fever TECHNIQUE: 2D digital imaging was performed of the chest. One image was obtained. An AP view was ob tained. COMPARISON: CR XR PORTABLE CHEST AP from 07/21/2021 FINDINGS: MEDIASTINUM: Normal. HEART: Normal. Cardiac pacer is in place. PULMONARY VASCULATURE: Normal. LUNGS: Stable bilateral airspace opacities. PLEURAL SPACE: No pneumothorax. There is blunting of the costophrenic angles bilaterally. BONE:Within normal limits for the patient's age. Sternotomy wires are in place. Clips are seen in th e mediastinum. OTHER FINDINGS:Normal. IMPRESSION: Stable bilateral airspace opacities. DATA REPOSITORY: RADIATION DOSE DELIVERED:
--- NOTE | 2021-07-25 18:40 | DI.VRAD_ITS ---
PROCEDURE INFORMATION: Exam: XR Chest Exam date and time: 07/25/2021 5:58 PM Age: 76 years old Clinical indication: Other: Fever TECHNIQUE: Imaging protocol: XR of the chest. Views: 1 view. COMPARISON: CR XR PORTABLE CHEST AP 01/12/2022 15:40 FINDINGS: Tubes, catheters and devices: EKG wires overlie the chest. Cardiac pacemaker in place similar to prior study. Lungs: Persistent bilateral patchy infiltrates without significant change from prior study. Pleural spaces: Blunted right and left costophrenic angles. Heart/Mediastinum: Stable cardiac silhouette. Bones/joints: Sternotomy wires and mediastinal clips in place. IMPRESSION: Persistent bilateral patchy infiltrates without significant change. Dictated and Authenticated by: Jocelyne De La Torre MD. Ordering:FLORENCIA Sanchez MD
[2021-07-25 19:01] LABS: COVID-19 PCR Negative (Negative)
[2021-07-25 19:02] LABS: Source Nasal/Nares
[2021-07-25] MEDS: Acetaminophen 325 MG TAB 650 MG PO (20:01)
[2021-07-25 20:58] LABS: Bilirubin Negative (Negative); Blood Trace-intact (Negative); Clarity Clear (Clear); Glucose Negative (Negative); Ketones Negative (Negative); Leukocyte Esterase Negative (Negative); Nitrite Negative (Negative); Specific Gravity 1.015 (1.005-1.025); Urobilinogen 0.2 EU/dL (Up TO 0.2)
[2021-07-25 21:16] LABS: Bacteria Negative HPF (Negative); C & S Indicated? No; Crystals Negative HPF (Negative); Epithelial Cells Negative HPF (Negative); Mucus Negative (Negative); RBC 0-2 HPF (0-2); WBC 0-2 HPF (0-5)
[2021-07-25] MEDS: Insulin Glargine 300 UNITS/3 ML PEN 6 UNITS SC (22:06)
[2021-07-26] VITALS (12 sets, daily range): BP systolic 82–111; BP diastolic 50–64; PULSE 57–62; RESP 16–18; TEMP 36.5–36.8; O2SAT 94–97
[2021-07-26] MEDS: Normal Saline Flush 10 ML SYR IVP ×2 (02:59→04:17)
[2021-07-26] MEDS: Lactated Ringers 500 ML IV (02:59)
[2021-07-26] MEDS: Midodrine 2.5 MG TAB 5 MG PO ×4 (06:32→19:28)
[2021-07-26 07:41] LABS: Anion Gap 5.7 mmol/L (3-11); BUN 18 mg/dL (7-18); CO2 27.3 mmol/L (21.0-32.0); CREATININE 1.2 mg/dL (0.70-1.30); Calcium 8.9 mg/dL (8.5-10.1); Chloride 104 mmol/L (98-107); Estimated GFR 59.02 (mL/min/1.73m2); Glucose 163 mg/dL (74-106); Potassium 4.2 mmol/L (3.5-5.1); Sodium 137 mmol/L (136-145)
[2021-07-26] MEDS: Nystatin 500000 UNITS/5 ML SUSP 5ML CUP PO ×3 (08:13→19:28)
[2021-07-26] MEDS: Insulin Aspart 300 UNITS/3 ML PEN SC ×5 (08:14→22:15)
[2021-07-26] MEDS: Metoprolol CR 100 MG TABCR 200 MG PO (08:14)
[2021-07-26] MEDS: Aspirin E.C. 81 MG TABEC PO (08:14)
[2021-07-26] MEDS: Rosuvastatin 10 MG TAB 20 MG PO (08:14)
[2021-07-26] MEDS: Cyanocobalamin 500 MCG TAB 1000 MCG PO (08:15)
[2021-07-26] MEDS: Docusate Sodium 100 MG CAP 400 MG PO (08:15)
[2021-07-26 08:17] LABS: Lactate 1.2 mmol/L (0.6-1.4)
[2021-07-26] MEDS: Sacubitril/Valsartan 24 mg/26 mg TAB 1 EACH PO ×2 (08:29→19:28)
[2021-07-26 08:36] LABS: C-Reactive Protein 2.08 mg/dL (0.0-0.3)
[2021-07-26 08:53] LABS: Procalcitonin < 0.1 ng/mL
--- NOTE | 2021-07-26 11:15 | RT.EKG_ITS ---
APPROVED REPORT Exam: Resting ECG Reason for Exam: chest discomfort Patient Location: I HR:60 bpm ECG Measurements Heart Rate 60 AXIS AK 170 P 143 QRSd 139 QRS 261 QT 454 T 86 QTc 454 Conclusion Atrial-ventricular dual-paced complexes...other complexes also detected No further analysis attempted due to paced rhythm Baseline wander in lead(s) V1
--- NOTE | 2021-07-26 11:29 | PGE_ITS ---
Date of Service Date of service: 07/26/21 Time of Service: 11:29 Assessment and Plan Assessment and plan (1) Chest discomfort: Status: Acute Assessment and plan: Obtain EKG, serial troponins. Trial nitroglycerin. He is normally on imdur which we held this morning due to lower BP. Appears perfectly AV paced on tele at this time. We might have to resume imdur even if the patient is a little hypotensive. There is a quesiton of a systemic infection as the patient is having fevers/chills, which might be related to the chest discomfort as well. (2) Fever: Status: Acute Assessment and plan: Await blood culture results. COVID-19 negative yesterday. CXR with known pulmonary opacities presumably from amiodarone toxicity. Procalcitonin is negative. UA is negative. DDx: viral syndrome such as COVID-19, C. Diff/bacterial gastroenteritis, bacteremia. Repeat COVID-19 PCR; obtain stool studies, await blood culture results. No abx at this time. (3) Hypotension: Status: Acute Assessment and plan: while on imdur 15 mg PO daily, toprol XL 200 mg PO daily, entresto. Continue midodrine. Holding imdur, but we might be forced to restart it given the chest discomfort this morning. We decreased entresto this am. (4) Ventricular tachycardia: Status: Chronic Assessment and plan: Episodic SVT / VT in setting of dehydration. ATP cut off is now 140. No recurrences in the last 48 hrs. Continue metoprolol at current dose if BP tolerates. If BP improves, would attempt to dial up the BB. (5) Ischemic cardiomyopathy: Status: Chronic Assessment and plan: LVEF 30-35%. s/p AICD with episodes of Vtach. As above. (6) Acute kidney injury: Status: Resolved Assessment and plan: Prerenal, due to dehydration in setting of n/v/diarrhea. Cr back to baseline. Will continue to monitor. (7) Amiodarone pulmonary toxicity: Status: Acute Assessment and plan: Prior to this admission. Followed by pulmonary. Will abstain from amiodarone. (8) COPD (chronic obstructive pulmonary disease): Status: Chronic Assessment and plan: Continue current regimen. (9) Diabetes type 2, controlled: Status: Chronic Assessment and plan: Increase long acting and add prandial insulin. Glucose goal 140-180. (10) DVT prophylaxis: Status: Acute Assessment and plan: Lovenox. (11) Discharge planning issues: Status: Acute Assessment and plan: Continues to require hospitalization. Subjective Subjective Interval history since last seen: Febrile yesterday. Tested negative for COVID-19 yesterday, but having chills all morning today. Had diarrhea this morning after which he noted chest tightness/discomfort across his chest. If I were home, I would be taking nitroglycerin and heading to the ER right now. Denies nausea. States he does not get these episodes at home except for once a long time ago. It got better when he got back into bed, but now is worse. Denies shortness of breath, dizziness, abdominal pain. He is vaccinated against COVID-19 and boosted. He is also vaccinated against the flu. Exam Narrative Exam Narrative: General: Pleasant elderly male who looks tired and a little anxious, A&Ox3, no dyspnea/tachypnea while laying in bed on RA. HEENT: EOMI, MMM Heart: RRR, no m/r/g Lungs: Crackles at B bases. Abdomen: soft, nontender, nondistended Extremities: no edema BLE's Objective Last Vital Signs Temp 36.7 C 07/26/21 11:14 Pulse 60 07/26/21 11:14 Resp 18 07/26/21 11:14 BP 100/55 L 07/26/21 11:14 Pulse Ox 97 07/26/21 11:14 Laboratory Results - last 24 hr 07/25/21 07/25/21 07/26/21 18:02 18:35 06:40 VBG Lactate Sodium 137 Potassium 4.2 Chloride 104 Carbon Dioxide 27.3 Anion Gap 5.7 BUN 18 Creatinine 1.2 Estimated GFR/1.73 m2 59.02 Glucose 163 H Calcium 8.9 Magnesium 2.0 C-Reactive Protein Procalcitonin Urine Color Yellow Urine Clarity Clear Urine pH 6.0 Ur Specific [place] 1.015 Urine Protein Negative Urine Ketones Negative Urine Blood Trace-intact H Urine Nitrite Negative Urine Bilirubin Negative Urine Urobilinogen 0.2 Ur Leukocyte Esterase Negative Urine RBC 0-2 Urine WBC 0-2 Ur Epithelial Cells Negative Urine Crystals Negative Urine Bacteria Negative Urine Mucus Negative Ur Culture Indicated? No Urine Glucose Negative COVID-19 Source Nasal/Nares SARS-CoV-2 (PCR) Negative 07/26/21 07/26/21 08:12 08:12 VBG Lactate 1.2 Sodium Potassium Chloride Carbon Dioxide Anion Gap BUN Creatinine Estimated GFR/1.73 m2 Glucose Calcium Magnesium C-Reactive Protein 2.08 H Procalcitonin < 0.1 Urine Color Urine Clarity Urine pH Ur Specific [place] Urine Protein Urine Ketones Urine Blood Urine Nitrite Urine Bilirubin Urine Urobilinogen Ur Leukocyte Esterase Urine RBC Urine WBC Ur Epithelial Cells Urine Crystals Urine Bacteria Urine Mucus Ur Culture Indicated? Urine Glucose COVID-19 Source SARS-CoV-2 (PCR)
[2021-07-26] MEDS: nitroGLYcerin 0.4 MG TAB SL (11:30)
[2021-07-26] MEDS: Enoxaparin 40 MG/0.4 ML SYR SC (11:33)
[2021-07-26 12:00] LABS: Source Nasopharynx
[2021-07-26 12:43] LABS: Troponin I < 50 ng/L (<or=60)
[2021-07-26 12:47] LABS: COVID-19 PCR Negative (Negative); Influenza A PCR Negative (Negative); Influenza B PCR Negative (Negative); RSV PCR Negative (Negative)
[2021-07-26 16:04] LABS: Troponin I < 50 ng/L (<or=60)
[2021-07-26] MEDS: Insulin Glargine 300 UNITS/3 ML PEN 8 UNITS SC (22:14)
[2021-07-27] VITALS (8 sets, daily range): BP systolic 100–123; BP diastolic 60–75; PULSE 60–62; RESP 16; TEMP 36.6–37; O2SAT 92–94
[2021-07-27] MEDS: Midodrine 2.5 MG TAB 5 MG PO ×3 (08:00→20:17)
[2021-07-27] MEDS: Docusate Sodium 100 MG CAP 400 MG PO (08:04)
[2021-07-27] MEDS: Rosuvastatin 10 MG TAB 20 MG PO (08:04)
[2021-07-27] MEDS: Isosorbide Mononitrate 10 MG TAB 15 MG PO (08:05)
[2021-07-27] MEDS: Sacubitril/Valsartan 24 mg/26 mg TAB 1 EACH PO ×2 (08:06→20:17)
[2021-07-27] MEDS: Metoprolol CR 100 MG TABCR 200 MG PO (08:06)
[2021-07-27] MEDS: Normal Saline Flush 10 ML SYR IVP ×2 (08:07→22:14)
[2021-07-27] MEDS: Nystatin 500000 UNITS/5 ML SUSP 5ML CUP PO ×3 (08:07→20:17)
[2021-07-27] MEDS: Aspirin E.C. 81 MG TABEC PO (08:07)
[2021-07-27] MEDS: Cyanocobalamin 500 MCG TAB 1000 MCG PO (08:07)
[2021-07-27] MEDS: Insulin Aspart 300 UNITS/3 ML PEN SC ×5 (08:19→21:45)
[2021-07-27 08:34] LABS: Abs Immature Grans 0.05 10^3/uL (0.0-0.06); Absolute Basophil Count 0.08 10^3/uL (0.0-0.2); Absolute Eosinophil Count 0.24 10^3/uL (0.0-0.7); Absolute Monocyte Count 0.79 10^3/uL (0.1-0.8); Absolute Neutrophil Count 7.36 10^3/uL (1.2-6.7); Basophils % 0.8; Eosinophils % 2.4; HCT 42.4 % (40.0-50.0); HGB 13.8 g/dL (13.5-17.5); Immature Grans % 0.5; Lymphocytes % 15.8; MCH 29.6 pg (27.0-33.0); MCHC 32.5 % (32.0-36.0); MPV 10.2 fL (8.0-11.0); Monocytes % 7.8; Neutrophils % 72.7; Nucleated RBC 0 %; Platelet Count 265 10^3/uL (130-400); RBC 4.66 10^6/uL (4.36-5.78); RDW 14.1 % (11.8-14.1); RDW-SD 46.5 fL; WBC 10.12 10^3/uL (4.4-10.8)
--- NOTE | 2021-07-27 08:42 | PDOC.CMPRO ---
- If Service Date Differs Date of service: 07/27/21 Time of Service: 08:42 Care Management Progress Note S/O: Nahun continues to be closely monitored for ongoing chest pain. No change to overall discharge plan. CM provided sudoku, prayer blanket and visited with Nahun who is missing his anabaptist and struggling with the extended hospitalization. CM continues to follow. A: 76 year old male admitted to [facility] on 07/21/21 for Dehydration P: Anticipate Nahun will discharge home with no new services. He will follow up with his PCP and plan of care and transport via private vehicle with family.
[2021-07-27 09:02] LABS: Anion Gap 6.2 mmol/L (3-11); BUN 16 mg/dL (7-18); CO2 25.8 mmol/L (21.0-32.0); CREATININE 1.1 mg/dL (0.70-1.30); Calcium 9.1 mg/dL (8.5-10.1); Chloride 102 mmol/L (98-107); Glucose 170 mg/dL (74-106); Potassium 4.7 mmol/L (3.5-5.1); Sodium 134 mmol/L (136-145); Troponin I < 50 ng/L (<or=60)
[2021-07-27] MEDS: Enoxaparin 40 MG/0.4 ML SYR SC (12:20)
--- NOTE | 2021-07-27 16:03 | PGE_ITS ---
Date of Service Date of service: 07/27/21 Time of Service: 16:04 Assessment and Plan Assessment and plan (1) Chest discomfort: Status: Resolved Assessment and plan: No ACS. Resumed imdur. No evidence of systemic infection, but will trial prednisone for possible bronchospastic/bronchitic component given chronic cough. (2) Fever: Status: Resolved Assessment and plan: Blood cultures negative. COVID-19 negative x 2 on this admission. CXR with known pulmonary opacities presumably from amiodarone toxicity, but we are also treating for bronchitis with prednisone and addressing atelectasis with IS. Procalcitonin is negative, arguig against bacterial component.. No role for abx at this time. (3) Hypotension: Status: Resolved Assessment and plan: Tolerating reintroduction of imdur. Continue current regimen (his entresto was decreased). (4) Ventricular tachycardia: Status: Chronic Assessment and plan: Episodic SVT / VT in setting of dehydration. ATP cut off is now 140. No recurrences in the last 4 days. Continue metoprolol at current dose if BP tolerates. (5) Ischemic cardiomyopathy: Status: Chronic Assessment and plan: LVEF 30-35%. s/p AICD with episodes of Vtach. As above. (6) Acute kidney injury: Status: Resolved Assessment and plan: Prerenal, due to dehydration in setting of n/v/diarrhea. Cr back to baseline. Will continue to monitor. (7) Amiodarone pulmonary toxicity: Status: Acute Assessment and plan: Prior to this admission. Followed by pulmonary. Will abstain from amiodarone. (8) COPD (chronic obstructive pulmonary disease): Status: Chronic Assessment and plan: Continue current regimen. (9) Diabetes type 2, controlled: Status: Chronic Assessment and plan: Increase long acting and add prandial insulin. Glucose goal 140-180. (10) DVT prophylaxis: Status: Acute Assessment and plan: Lovenox. (11) Discharge planning issues: Status: Acute Assessment and plan: Continues to require hospitalization. (12) Chronic cough: Status: Acute Assessment and plan: Add nasal spray and prednisone as well as give 1 dose of lasix. No evidence of PNA. No role for abx. Subjective Subjective Interval history since last seen: Mr Russo states that he has not had any more chest discomfort, does not feel short of breath, has not had any nausea or diarrhea. Today his biggest complaint is his nonproductive cough. He states that taking prednisone for it in the past helped (he states he did not tolerate the antibiotic then). He also endorses c hronic nasal congestion. Exam Narrative Exam Narrative: General: Pleasant elderly male who looks better, A&Ox3, no dyspnea/tachypnea while laying in bed on RA. HEENT: EOMI, MMM Heart: RRR, no m/r/g Lungs: Crackles at B bases are worse today. Abdomen: soft, nontender, nondistended Extremities: no edema BLE's Objective Last Vital Signs Temp 37 C 07/27/21 11:47 Pulse 60 07/27/21 15:09 Resp 16 07/27/21 11:47 BP 100/60 07/27/21 11:47 Pulse Ox 94 07/27/21 11:47 Laboratory Results - last 24 hr 07/26/21 07/27/21 07/27/21 15:30 08:15 08:15 WBC 10.12 RBC 4.66 Hgb 13.8 Hct 42.4 MCV 91.0 MCH 29.6 MCHC 32.5 RDW 14.1 Plt Count 265 MPV 10.2 Immature Gran % 0.5 Neutrophils % 72.7 Lymphocytes % 15.8 Monocytes % 7.8 Eosinophils % 2.4 Basophils % 0.8 Nucleated RBC % 0 Absolute Neutrophils 7.36 H Absolute Lymphocytes 1.60 Absolute Monocytes 0.79 Absolute Eosinophils 0.24 Absolute Basophils 0.08 Sodium 134 L Potassium 4.7 Chloride 102 Carbon Dioxide 25.8 Anion Gap 6.2 BUN 16 Creatinine 1.1 Estimated GFR/1.73 m2 >= 60.00 Glucose 170 H Calcium 9.1 Magnesium 2.0 Troponin I < 50 < 50
[2021-07-27] MEDS: predniSONE 20 MG TAB 40 MG PO (16:46)
[2021-07-27] MEDS: Furosemide 20 MG TAB PO (16:47)
[2021-07-27] MEDS: Insulin Glargine 300 UNITS/3 ML PEN 8 UNITS SC (21:45)
[2021-07-28 03:27] VITALS: BP 102/65; PULSE 66; RESP 16; TEMP 36; O2SAT 94
[2021-07-28 07:15] LABS: Abs Immature Grans 0.03 10^3/uL (0.0-0.06); Absolute Basophil Count 0.03 10^3/uL (0.0-0.2); Absolute Eosinophil Count 0.01 10^3/uL (0.0-0.7); Absolute Lymphocyte Count 1.14 10^3/uL (1.2-3.4); Absolute Monocyte Count 0.42 10^3/uL (0.1-0.8); Absolute Neutrophil Count 6.75 10^3/uL (1.2-6.7); Basophils % 0.4; Eosinophils % 0.1; HCT 39.6 % (40.0-50.0); HGB 12.9 g/dL (13.5-17.5); Immature Grans % 0.4; Lymphocytes % 13.6; MCH 29.4 pg (27.0-33.0); MCHC 32.6 % (32.0-36.0); MCV 90.2 fL (80-95); MPV 10.2 fL (8.0-11.0); Neutrophils % 80.5; Nucleated RBC 0 %; Platelet Count 267 10^3/uL (130-400); RBC 4.39 10^6/uL (4.36-5.78); RDW 13.8 % (11.8-14.1); RDW-SD 45.4 fL; WBC 8.38 10^3/uL (4.4-10.8)
[2021-07-28 07:22] VITALS: BP 109/70; PULSE 60; RESP 16; TEMP 36.4; O2SAT 97
[2021-07-28 07:23] LABS: Anion Gap 7.9 mmol/L (3-11); BUN 20 mg/dL (7-18); CO2 26.1 mmol/L (21.0-32.0); CREATININE 1.1 mg/dL (0.70-1.30); Chloride 100 mmol/L (98-107); Glucose 244 mg/dL (74-106); Magnesium 2.1 mg/dL (1.8-2.4); Sodium 134 mmol/L (136-145)
[2021-07-28] MEDS: Docusate Sodium 100 MG CAP 400 MG PO (08:24)
[2021-07-28] MEDS: Midodrine 2.5 MG TAB 5 MG PO (08:25)
[2021-07-28] MEDS: Metoprolol CR 100 MG TABCR 200 MG PO (08:25)
[2021-07-28] MEDS: Aspirin E.C. 81 MG TABEC PO (08:25)
[2021-07-28] MEDS: Nystatin 500000 UNITS/5 ML SUSP 5ML CUP PO (08:25)
[2021-07-28] MEDS: Sacubitril/Valsartan 24 mg/26 mg TAB 1 EACH PO (08:25)
[2021-07-28] MEDS: Cyanocobalamin 500 MCG TAB 1000 MCG PO (08:26)
[2021-07-28] MEDS: Isosorbide Mononitrate 10 MG TAB 15 MG PO (08:26)
[2021-07-28] MEDS: Rosuvastatin 10 MG TAB 20 MG PO (08:26)
[2021-07-28] MEDS: predniSONE 20 MG TAB 40 MG PO (08:26)
[2021-07-28] MEDS: Insulin Aspart 300 UNITS/3 ML PEN SC ×3 (08:27→12:12)
[2021-07-28] MEDS: Normal Saline Flush 10 ML SYR IVP (08:28)
--- NOTE | 2021-07-28 08:47 | PDOC.CMDIS ---
- If Service Date Differs Date of service: 07/28/21 Time of Service: 08:47 LACE Index Scoring Tool - Questions: Length of Stay (in days): 4 - 6 Acuity (Admit via E.D.?): Yes Comorbidities: Diabetes w/o Complication, Chronic Pulmonary Disease E.D. Visits: 2 - Answers: Total Score: 12 Risk of Readmission: High Risk Care Management Discharge Reason for Hospitalization: YVONNE Discharge Plan: Nahun will discharge home with no new services. He will follow up with his PCP and plan of care and transport via private vehicle with his friend, Prachi. Patient/Family Education Needs: Review discharge instructions, discuss Ask Me Three.
--- NOTE | 2021-07-28 11:26 | W.PM.DS.N ---
Date of service: 07/28/21 Time of Service: 11:26 DS: Diagnosis Discharge Diagnosis (1) Ventricular tachycardia: Status: Chronic (2) Ischemic cardiomyopathy: Status: Chronic (3) Hypotension: Status: Resolved (4) Chest discomfort: Status: Resolved (5) Chronic cough: Status: Acute (6) Fever: Status: Resolved Asessment and Plan: in setting of atelectasis (7) Acute kidney injury: Status: Resolved (8) Amiodarone pulmonary toxicity: Status: Chronic (9) COPD (chronic obstructive pulmonary disease): Status: Chronic (10) Diabetes type 2, controlled: Status: Chronic Discharge Plan Disposition Patient Disposition: HOME Condition: Stable Discharge Details Reason For Visit: Dehydration Admit Date/Time: 07/23/21 14:24 Admit Provider: Darrius Hallman Attending Provider: Darrius Hallman Primary Care Provider: Forrest Crandall [facility] Course Hospital Course: Mr Abdullahi is a 76 year old male with PMHx of ICMO/chronic systolic CHF w/ LVEF of 35%, s/p AICD, as well as h/o amiodarone pulmonary toxicity, COPD, chronic cough, who was admitted to [facility] hospitalist service on 07/21/21, having presented to [facility] ED at the request of his outpatient cardiology team for reports of SVT and VTach communicated by AICD. The patient had presented dehydrated from having GI sx as outpatient. The patient was indeed having episodes of Vtach which were not all treated with ATP as the cutoff for pacing was above the HR of 150. An episode of Vtach lasting 20 minutes resulted in the patient being transferred to the ICU on the day of his admission. He was treated with IVF and an attempt at uptitration of his metoprolol, which unfortunately his blod pressures did not tolerate. Ultimately, he required initiation of midodrine just to be able to tolerate his previous dose of toprol XL 200 mg daily, but with correction of his volume status, episodes of Vtach did stop. His AICD ATP threshold was reprogrammed to 140, but he has not required ATP since. He was transferred out of the ICU on 07/24/21. We did decrease his dose of entresto and, due to hypotension, had to hold 1 dose of imdur, which resulted in patient having chest discomfort. He ruled out for ACS, and chest discomfort did not recur since re-initiation of imdur. The patient had one episode of a borderline fever here. He ruled out for any acute infectious etiology, including UTI, bacteremia, COVID-19, influenza, RSV, pneumonia. We believe he probably had this due to atelectasis. He does report a chronic cough, for which prednisone was previously helpful. He is being discharged home on a prednisone taper and with an rx for a nasal spray for his post-nasal drip with follow up with Dr Loo (pulmonology). He will need follow up with [facility] as well. This appointment was made for tomorrow. The patient is being referred to a local PCP as his PCP is located 3 hours away. Finally, the patient had expressed difficulty keeping up with all his appointments. He is interested with meeting with palliative care which we, unfortunately, were unable to make happen prior to discharge. An outpatient referral was already in place. He is medically stable for discharge home today. Care for patient as well as completion of his discharge summary took 60 minutes on the day of discharge. Home Meds and New Rx's Prescriptions: New levalbuterol tartrate 45 mcg/actuation Hfa Aerosol Inhaler 2 puff inhalation Q4H PRN PRN (Reason: shortness of breath or wheezing) Qty: 15 0RF midodrine 5 mg Tablet 5 mg PO TID Qty: 90 0RF mometasone 50 mcg/actuation [place],Non-Aerosol 1 spray NS DAILY Qty: 17 0RF prednisone 20 mg Tablet 40 mg PO DAILY Qty: 6 0RF Continued cyanocobalamin (vitamin B-12) 1,000 mcg capsule 1,000 mcg PO DAILY 0RF (DME) Lovasa 1 gram tablet See Rx Instructions .Route .MEDSUPPLY Qty: 90 6RF Rx Instructions: 1 twice daily nitroglycerin 0.4 mg tablet, sublingual 0.4 mg sublingual Q5M Qty: 90 3RF Rx Instructions: do not exceed 3 doses per episode benzonatate 100 mg capsule 100 mg PO TID 0RF metformin 500 mg Tablet 500 mg PO BID 0RF isosorbide mononitrate 10 mg Tablet 15 mg PO DAILY 0RF coenzyme Q10 [Co Q-10] 100 mg Capsule 100 mg PO DAILY 0RF docusate sodium [Colace] 100 mg capsule 400 mg PO DAILY 0RF rosuvastatin [Crestor] 10 mg tablet 20 mg PO DAILY 0RF aspirin 81 mg Tablet,Delayed Release (Dr/Ec) 81 mg PO DAILY 0RF omega-3 acid ethyl esters [Lovaza] 1 gram capsule 2 cap PO BID 0RF Label Comments: Take 2 twice a day Changed metoprolol tartrate 100 mg tablet 200 mg PO DAILY Qty: 0 0RF Label Comments: Take 2 tablet by mouth once a day Entresto 24-26 mg tablet 1 tab PO BID Qty: 0 0RF Label Comments: Take 2 tablet by mouth once a day Discontinued albuterol sulfate 90 mcg/actuation HFA aerosol inhaler 2 puff inhalation Q6H PRN (Reason: shortness of breath or wheezing) Qty: 6.7 5RF amlodipine 2.5 mg tablet 2.5 mg PO DAILY 0RF Discharge Instructions Instructions: Midodrine (By mouth), Heart Failure (DC), Supraventricular Tachycardia (DC), Chronic Cough (DC), Hypotension (DC) Additional Instructions: Return to the hospital with any fever, bleeding, chest pain, or shortness of breath. Follow up with your new PCP, with electrophysiology as scheduled, with pulmonology, and with palliative. The timing of your metoprolol has now changed to the morning. Your entresto dose has decreased. Referrals: [facility] Palliative Care Clinic [Provider Group] Elizabeth Loo MD [ [facility] STAFF PHYSICIAN] - Talha Hernández MD [ CONSULTING PHYSICIAN] - 07/29/21 4:30 pm (Appointment will be at [facility]) Activity:: Activity as Tolerated Equipment/Supplies:: No Equipment Needed Diet:: carb consistent heart healthy Discharge Orders Discharge Orders: Discharge Order (Routine); Ordered 07/28/21 Ordered By: Laura Gee DS: Summary Time Spent with Patient providing and/or coordinating discharge services: Greater than 30 minutes Status at Discharge Functional status at discharge: independent ambulation Overall status at discharge: patient is back to baseline Mental Status: mental status grossly normal Speech and Movement: speech and movement normal Mood: congruent mood Affect: normal affect Exam Narrative Exam Narrative: General: Pleasant elderly male who looks better, A&Ox3, no dyspnea/tachypnea, but does have a dry cough; sitting up in a chair HEENT: EOMI, MMM Heart: RRR, no m/r/g Lungs: faint crackles in B bases, improved from yesterday Abdomen: soft, nontender, nondistended Extremities: no edema BLE's Psych Mental Status: mental status grossly normal Speech and Movement: speech and movement normal Mood: congruent mood Affect: normal affect DS: Data Vitals/I&O Vitals and I&O: Vital Signs Temperature 36.4 C L 07/28/21 07:22 Temperature Source Tympanic 07/28/21 07:22 Pulse 60 07/28/21 07:22 Pulse Rhythm Regular 07/28/21 04:07 Pulse 62 07/25/21 06:01 Respiratory Rate 16 07/28/21 07:22 Respiratory Effort Non-Labored 07/28/21 08:15 Respiratory Depth Normal 07/28/21 08:15 Respiratory Pattern Normal 07/28/21 08:15 Blood Pressure 109/70 07/28/21 07:22 Blood Pressure Mean 70 07/25/21 09:46 Blood Pressure Position Sitting 07/25/21 09:46 Pulse Oximetry 97 07/28/21 07:22 Oxygen Delivery Method Room Air 07/28/21 07:22 Oxygen Flow Rate 0 07/28/21 07:22 Pain Level 0 07/27/21 23:52 Comment 07/26/21 11:14 Intake & Output 07/27/21 07/27/21 07/28/21 11:59 23:59 11:59 Intake Total 250 / 610 360 / 610 Balance 250 / 610 360 / 610 Weight 68.9 kg Intake: IV Oral 250 / 590 340 / 590 Other: Urine Appearance Clear Clear Comment per patient has has been to the bathroom pt is voiding independently. pt denies dysuria Unknown amount, pt stated he voided Voiding Methods Toilet Data Completed and Pending Completed studies during hospitalization [Text1]: CXR 07/21/21: Persistent bilateral pulmonary infiltrates.? Slight improvement is noted in the right lung.? CTA chest 07/22/21: 1. No evidence of acute pulmonary emboli.. 2. There are patchy infiltrates in both lung rodriguez which have significantly increased when compared to the prior CT scan 03/18/2020.? No associated pleural effusions.? Mild adenopathy.? Recommend testing forCovid -19 3. Cardiomegaly.? Sternotomy.? Pacemaker. Echo 07/22/21: Borderline dilated left ventricle.? Normal left ventricular wall thickness.? Estimated ejection fraction is moderately reduced.? EF 35%.? There are wall motion abnormalities involving the inferolateral inferoapical and anterolateral segments Normal right ventricular size and systolic function Device lead noted in the right heart Both atria are normal in size Mildly sclerotic trileaflet aortic valve.? Mild aortic regurgitation Normal mitral valve.? Mild to moderate mitral regurgitation Normal tricuspid valve with mild regurgitation.? Normal estimated right ventricular systolic pressure Compared to an echocardiogram from March 11, 2021 there is no significant interval change CXR 07/25/21: Stable bilateral airspace opacities.? Labs on day of discharge: Labs from last 24 hours 07/28/21 07/28/21 07:05 07:05 WBC 8.38 RBC 4.39 Hgb 12.9 L Hct 39.6 L MCV 90.2 MCH 29.4 MCHC 32.6 RDW 13.8 Plt Count 267 MPV 10.2 Immature Gran % 0.4 Neutrophils % 80.5 Lymphocytes % 13.6 Monocytes % 5.0 Eosinophils % 0.1 Basophils % 0.4 Nucleated RBC % 0 Absolute Neutrophils 6.75 H Absolute Lymphocytes 1.14 L Absolute Monocytes 0.42 Absolute Eosinophils 0.01 Absolute Basophils 0.03 Sodium 134 L Potassium 5.0 Chloride 100 Carbon Dioxide 26.1 Anion Gap 7.9 BUN 20 H Creatinine 1.1 Estimated GFR/1.73 m2 >= 60.00 Glucose 244 H Calcium 9.0 Magnesium 2.1 Preliminary micro results at discharge 07/25/21 20:17 Blood Culture - Preliminary Blood NO GROWTH 48 HOURS 07/25/21 20:05 Blood Culture - Preliminary Blood NO GROWTH 48 HOURS PFSH All Active Problems Chronic cough (Acute) Ventricular tachycardia (Chronic) Coronary artery disease (Chronic) Pulmonary nodules (Acute) Tremor (Acute) Cervical myelopathy (Acute) COPD (chronic obstructive pulmonary disease) (Chronic) Amiodarone pulmonary toxicity (Chronic) Diabetes type 2, controlled (Chronic) Discharge planning issues (Acute) DVT prophylaxis (Acute) Non-ST elevation DC (NSTEMI) (Acute) Pulmonary infiltrate (Acute) Carpal tunnel syndrome on both sides (Acute) Abnormality of lung on chest x-ray (Acute) Ischemic cardiomyopathy (Chronic) Hx of CABG (Chronic) Paresthesia of hand, bilateral (Acute) Cognitive complaints (Acute) AICD (automatic cardioverter/defibrillator) present (Acute) Biventricular [place] ICD 2013 Medical History (Updated 07/28/21 @ 11:27 by Laura Gee MD) Coronary artery disease Depression Hyperlipidemia Hypertension Hyponatremia On amiodarone therapy Pneumonia Ventricular tachycardia Surgical History S/P cervical discectomy Family History Father Hypertension Mother Diabetes Social History Smoking/Tobacco Use Status: Never Smoking risk assessment performed?: Yes Alcohol Intake: current Alcohol Intake frequency: a few times a month Alcohol type: beer Drug use: Never Substance use type: does not use Household members: none Number of Children: 2 current occupation: [employer] What is your relationship status?: Panel score (0-1 are the most socially isolated patients): 0 Do you feel safe at home: Yes Do you feel safe in your relationship?: Yes
[2021-07-28] MEDS: Enoxaparin 40 MG/0.4 ML SYR SC (12:14)
[2021-07-28 12:35] VITALS: BP 108/64; PULSE 60; RESP 17; TEMP 36; O2SAT 95
[2021-07-28 13:40] VITALS: PULSE 60
== END 2021-07-28 13:53 | disposition home or self-care (01) | DRG 683 ==
LOC: ER 13:28 → MS 16:31 → ICU 07-22 09:32 → MS 07-25 14:03
PROVIDERS: Internal Medicine; Nurse Practitioner Acute Care; Admitting Provider Family Medicine; Emergency Provider Physician Assistant; PCP Internal Medicine; Visit Provider Family Medicine
DX: N17.9 Acute kidney failure, unspecified (principal); I47.1 Supraventricular tachycardia; I47.2 Ventricular tachycardia; J98.11 Atelectasis; F32.A Depression, unspecified; I10 Essential (primary) hypertension; E11.9 Type 2 diabetes mellitus without complications; J44.9 Chronic obstructive pulmonary disease, unspecified; I25.5 Ischemic cardiomyopathy; Z95.810 Presence of automatic (implantable) cardiac defibrillator; Z79.84 Long term (current) use of oral hypoglycemic drugs; E86.0 Dehydration; I25.10 Atherosclerotic heart disease of native coronary artery without angina pectoris; R91.8 Other nonspecific abnormal finding of lung field; I25.2 Old myocardial infarction; Z95.1 Presence of aortocoronary bypass graft; E78.5 Hyperlipidemia, unspecified; R07.89 Other chest pain; R05.3 Chronic cough; I95.2 Hypotension due to drugs; T44.7X5A Adverse effect of beta-adrenoreceptor antagonists, initial encounter; Y92.239 Unspecified place in hospital as the place of occurrence of the external cause; T46.2X5A Adverse effect of other antidysrhythmic drugs, initial encounter; R50.81 Fever presenting with conditions classified elsewhere
CPT/HCPCS: 36410; 36415; 71275; 80048; 80053; 84145; 85027; 87040; 87449; 87493; 87505; 87635; 87637; 93005; 96361; 96374; 99285; J1650; 71045; 81003; 81015; 83605; 83735; 83880; 84443; 84484; 85025; 86140; 93010; 93306; 99220; 99226; 99232; 99233; 99239; J3490; J7512

== ENCOUNTER → 2021-07-22 14:07 | Outpatient (BNVA) | payer OTHER, SELFPAY | PROVIDERS: PCP Internal Medicine; Referring Provider Internal Medicine; Visit Provider Physician Assistant | DX: R69 Illness, unspecified (principal) ==

== ENCOUNTER 2021-08-03 02:42 | Outpatient (CLI) | payer OTHER, SELFPAY ==
[2021-08-03 22:01] LABS: Rheumatoid Factor <8.6 IU/mL (<12.0)
[2021-08-04 10:18] LABS: Cyclic Citrullinated Peptide <2.5 U/mL (<5.0)
[2021-08-04 13:33] LABS: dsDNA Ab, IgG <12.3 IU/mL (<30.0)
[2021-08-04 14:31] LABS: ANA Interpretation Negative (Negative)
== END 2021-08-03 02:43 | disposition home or self-care (01) ==
LOC: LBO 02:42
PROVIDERS: PCP Internal Medicine; Visit Provider Student in an Organized Health Care Education/Training Program
DX: R91.8 Other nonspecific abnormal finding of lung field (principal)
CPT/HCPCS: 36415; 86200; 86038; 86225; 86431

== ENCOUNTER → 2021-08-17 14:40 | Outpatient (BNVA) | payer OTHER, SELFPAY | PROVIDERS: PCP Internal Medicine; Referring Provider Internal Medicine; Visit Provider Psychiatry & Neurology Neurology | DX: R25.1 Tremor, unspecified (principal); G95.89 Other specified diseases of spinal cord; R20.2 Paresthesia of skin; G56.03 Carpal tunnel syndrome, bilateral upper limbs; R41.9 Unspecified symptoms and signs involving cognitive functions and awareness; R91.8 Other nonspecific abnormal finding of lung field; I47.2 Ventricular tachycardia | CPT/HCPCS: 36416; 85018; 99213 ==

== ENCOUNTER → 2021-09-25 13:00 | Outpatient (BNVA) | payer OTHER, SELFPAY | PROVIDERS: PCP Internal Medicine; Referring Provider Internal Medicine; Visit Provider Internal Medicine Cardiovascular Disease | DX: I25.10 Atherosclerotic heart disease of native coronary artery without angina pectoris (principal); I25.5 Ischemic cardiomyopathy; I47.2 Ventricular tachycardia; Z95.810 Presence of automatic (implantable) cardiac defibrillator | CPT/HCPCS: 99214; 99213 ==

== ENCOUNTER 2021-09-28 14:10 | Emergency (ER) | payer OTHER, SELFPAY ==
[2021-09-28] VITALS (79 sets, daily range): BP systolic 78–220; BP diastolic 44–205; PULSE 80–212; RESP 8–27; TEMP 36.6; O2SAT 93–99
--- NOTE | 2021-09-28 14:00 | RT.EKG_ITS ---
APPROVED REPORT Exam: Resting ECG Reason for Exam: chest pain Patient Location: E HR:136 bpm ECG Measurements Heart Rate 136 AXIS DC 155 P -76 QRSd 208 QRS -122 QT 396 T 67 QTc 597 Conclusion Ectopic atrial tachycardia, unifocal...abnormal P axis, V-rate> 99 Right bundle branch block...QRSd>120, terminal axis(90,270) ST depr, consider ischemia, anterolateral lds...ST <-0.10mV, I aVL V2-V6 wide complex tachycardia, regular, consider V tach v SVT with abberancy
[2021-09-28] MEDS: Normal Saline 500 ML 1000 ML IV (14:35)
--- NOTE | 2021-09-28 14:44 | ED.GENADUL_ITS ---
Discharge Plan Disposition Patient Disposition: [facility] Condition: Fair Discharge Details Chief Complaint: Chest Pain Clinical Impression: Ventricular tachycardia, Hypomagnesemia Primary Care Provider: Forrest Crandall ED Provider: Darrius Alicia Home Meds and New Rx's Prescriptions: No Action cyanocobalamin (vitamin B-12) 1,000 mcg capsule 1,000 mcg PO DAILY 0RF nitroglycerin 0.4 mg tablet, sublingual 0.4 mg sublingual Q5M Qty: 90 3RF Rx Instructions: do not exceed 3 doses per episode midodrine 5 mg tablet 5 mg PO TID Qty: 90 3RF benzonatate 100 mg capsule 100 mg PO TID 0RF triamcinolone acetonide [Nasacort] 55 mcg aerosol,spray 2 spray intranasal DAILY Qty: 16.9 11RF Rx Instructions: administer into each nostril levalbuterol tartrate 45 mcg/actuation HFA aerosol inhaler 2 puff inhalation Q4H PRN PRN (Reason: shortness of breath or wheezing) Qty: 15 8RF omega-3 acid ethyl esters [Lovaza] 1 gram capsule 2 cap PO BID Qty: 180 3RF metoprolol tartrate 100 mg tablet 150 mg PO DAILY 0RF Label Comments: Take 2 tablet by mouth once a day metformin 500 mg Tablet 500 mg PO BID 0RF isosorbide mononitrate 10 mg Tablet 15 mg PO DAILY 0RF coenzyme Q10 [Co Q-10] 100 mg Capsule 100 mg PO DAILY 0RF docusate sodium [Colace] 100 mg capsule 400 mg PO DAILY 0RF rosuvastatin [Crestor] 10 mg tablet 20 mg PO DAILY 0RF aspirin 81 mg Tablet,Delayed Release (Dr/Ec) 81 mg PO DAILY 0RF Entresto 24-26 mg tablet 1 tab PO BID Qty: 0 0RF Label Comments: Take 2 tablet by mouth once a day Medical Decision Making 76-year-old male history of coronary disease, AICD, V. tach, patient also endorses a history of A. fib with ablation, presents with wide complex tachycardia and chest pain, was given lidocaine in the field heart rate went from 170s to 130s. Patient Dors that this chest pain is improving was given an aspirin. Hemodynamically stable mentating normally. No respiratory distress. Evidence of wide-complex tachycardia on EKG consider supraventricular tachycardia with aberrancy such as A. fib a flutter multifocal atrial complex less likely AVNRT or AVRT given rate, muscle to consider V. tach. Report from most recent visit at [facility] in July concerned the patient generator battery may be depleting. Will attempt to contac patient's blending tank helper at [facility]. Will provide fluid bolus, check electrolytes, consider administering antiarrhythmic/maria m tomy such as procainamide or diltiazem. Close reassessment disposition pending reassessment the patient Patient found to be hypomagnesemic, 1 g of magnesium sulfate has been infused, discussed case with [facility] blending tank helper Dr. Rivero who after reviewing patient's old EKGs believes this may be slow V. tach. We will proceed with bolus of procainamide given patient's adverse reaction to amiodarone and given patient already received a dose of lidocaine earlier today. Patient remains hemodynamically stable mentating no respiratory distress. Patient has been accepted at [facility] awaiting confirmation of bed will activate [facility] flight. Patient amenable to transfer. HPI General Date/Time Provider Initiated Documentation: 09/28/21 14:10 . HPI Narrative: 76-year-old male history of COPD coronary disease, AICD in place, followed at [facility] cardiology by Dr. Talha Hernández; presents with chest pain that started while he was moving things into his car earlier this afternoon around 1 PM, mild in nature, was found to be in a wide-complex tachycardia by EMS, patient Dors that he was allergic to amiodarone therefore patient was given lidocaine in the field, initial rate approximately 170 bpm, improved to 130 bpm, patient endorses that his chest pain has reduced, he was given aspirin in the field. Related Data Home Medications Medication Instructions Recorded Confirmed coenzyme Q10 100 mg capsule (Co 100 mg PO DAILY 06/17/20 09/28/21 Q-10) isosorbide mononitrate 10 mg tablet 15 mg PO DAILY 06/17/20 09/28/21 metformin 500 mg tablet 500 mg PO BID 06/17/20 09/28/21 aspirin 81 mg tablet,delayed 81 mg PO DAILY 07/10/20 09/28/21 release docusate sodium 100 mg capsule 400 mg PO DAILY cap 07/28/20 09/28/21 (Colace) rosuvastatin 10 mg tablet (Crestor) 20 mg PO DAILY tab 03/20/21 09/28/21 cyanocobalamin (vitamin B-12) 1,000 mcg PO DAILY 03/24/21 09/28/21 1,000 mcg capsule nitroglycerin 0.4 mg sublingual 0.4 mg SUBLINGUAL Q5M #90 tab 06/19/21 09/28/21 tablet benzonatate 100 mg capsule 100 mg PO TID 07/15/21 09/28/21 sacubitril 24 mg-valsartan 26 mg 1 tab PO BID #0 tab 07/28/21 09/28/21 tablet (Entresto) levalbuterol tartrate 45 2 puff INHALATION Q4H PRN PRN #15 g 08/03/21 09/28/21 mcg/actuation aerosol inhaler triamcinolone acetonide 55 mcg 2 spray INTRANASAL DAILY #16.9 ml 08/03/21 09/28/21 nasal spray aerosol (Nasacort) omega-3 acid ethyl esters 1 gram 2 cap PO BID #180 cap 08/04/21 09/28/21 capsule (Lovaza) midodrine 5 mg tablet 5 mg PO TID #90 tab 09/25/21 09/28/21 metoprolol tartrate 100 mg tablet 150 mg PO DAILY 09/28/21 09/28/21 Previous Rx's Medication Instructions Recorded nitroglycerin 0.4 mg sublingual 0.4 mg SUBLINGUAL Q5M #90 tab 06/19/21 tablet sacubitril 24 mg-valsartan 26 mg 1 tab PO BID #0 tab 07/28/21 tablet (Entresto) levalbuterol tartrate 45 2 puff INHALATION Q4H PRN PRN #15 g 08/03/21 mcg/actuation aerosol inhaler triamcinolone acetonide 55 mcg 2 spray INTRANASAL DAILY #16.9 ml 08/03/21 nasal spray aerosol (Nasacort) omega-3 acid ethyl esters 1 gram 2 cap PO BID #180 cap 08/04/21 capsule (Lovaza) midodrine 5 mg tablet 5 mg PO TID #90 tab 09/25/21 Allergies Allergy/AdvReac Type Severity Reaction Status Date / Time erythromycin base Allergy Verified 08/03/21 15:12 amiodarone AdvReac Severe pneumonitis Verified 07/31/21 10:41 and neuropathy General Stated Complaint: Chest Pain RAJESH: 2 Review of Systems Narrative: Review of Systems Constitutional: negative Eyes: negative ENT: negative Cardiovascular: Chest pain Respiratory: negative Gastrointestinal: negative : negative Musculoskeletal: negative Skin: negative Neurologic: negative Psych: negative PFSH All Active Problems Hypomagnesemia (Acute) Chronic rhinitis (Acute) Chronic cough (Acute) Ventricular tachycardia (Chronic) AICD Coronary artery disease (Chronic) s/p CABG, hx of NSTEMI Tremor (Acute) Cervical myelopathy (Acute) COPD (chronic obstructive pulmonary disease) (Chronic) Amiodarone pulmonary toxicity (Chronic) Diabetes type 2, controlled (Chronic) Carpal tunnel syndrome on both sides (Acute) Ischemic cardiomyopathy (Chronic) AICD (automatic cardioverter/defibrillator) present (Acute) Biventricular [facility] 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 What is your relationship status?: Panel score (0-1 are the most socially isolated patients): 0 Do you feel safe at home: Yes Do you feel safe in your relationship?: Yes Exam Narrative Exam Narrative: Physical Examination General: alert, awake, cooperative, mildly uncomfortable HEENT: normocephalic, atraumatic; PERRL, EOM intact, conjunctiva normal; no nasal discharge; moist mucous membranes, oral and pharyngeal mucosa normal, tolerating secretions Neck: supple, trachea midline; full ROM Chest: normal to inspection Respiratory: normal respiratory effort, speaking in full sentences, clear to auscultation, no wheezing, rales or rhonchi Cardiac: Tachycardia, S1S2 intact, no murmurs rubs or gallops GI: abdomen soft, non-tender, non-distended; no palpable mass or hepatosplenomegaly Skin: Slightly pale Neuro: AAOx3, normal speech, moving all extremities Extremities: No peripheral edema Psych: Appropriate mood and affect Course Vital Signs Vital signs: Vital Signs Pulse 135 H 09/28/21 14:16 Respiratory Rate 20 09/28/21 14:16 Blood Pressure 112/75 09/28/21 14:16 Pulse Oximetry 95 09/28/21 14:16 Pulse 135 H 09/28/21 14:16 Respiratory Rate 20 09/28/21 14:16 Respiratory Effort Non-Labored 09/28/21 14:22 Respiratory Depth Normal 09/28/21 14:22 Respiratory Pattern Normal 09/28/21 14:22 Blood Pressure 112/75 09/28/21 14:16 Blood Pressure Position Supine 09/28/21 14:16 Pulse Oximetry 95 09/28/21 14:16 Oxygen Delivery Method Room Air 09/28/21 14:16 Oxygen Flow Rate 0 09/28/21 14:16 Pain Level 1 09/28/21 14:16
[2021-09-28 14:47] LABS: Abs Immature Grans 0.04 10^3/uL (0.0-0.06); Absolute Basophil Count 0.05 10^3/uL (0.0-0.2); Absolute Eosinophil Count 0.16 10^3/uL (0.0-0.7); Absolute Lymphocyte Count 1.46 10^3/uL (1.2-3.4); Absolute Monocyte Count 0.71 10^3/uL (0.1-0.8); Absolute Neutrophil Count 7.45 10^3/uL (1.2-6.7); Basophils % 0.5; Eosinophils % 1.6; HCT 37.4 % (40.0-50.0); HGB 12.7 g/dL (13.5-17.5); Immature Grans % 0.4; Lymphocytes % 14.8; MCH 29.9 pg (27.0-33.0); MPV 10.2 fL (8.0-11.0); Monocytes % 7.2; Neutrophils % 75.5; Platelet Count 217 10^3/uL (130-400); RBC 4.25 10^6/uL (4.36-5.78); RDW 15.1 % (11.8-14.1); RDW-SD 48.4 fL; WBC 9.87 10^3/uL (4.4-10.8)
--- NOTE | 2021-09-28 14:59 | DI.RAD_ITS ---
Exam(s) XR PORTABLE CHEST AP EXAM: XR PORTABLE CHEST AP CLINICAL HISTORY: tachycardia, chest pain TECHNIQUE: 2D digital imaging was performed. COMPARISON: CR XR CHEST 2V PA LATERAL from 07/15/2021 CR XR PORTABLE CHEST AP from 07/21/[address] CHEST PE CTA from 07/22/2021 CR,XR XR PORTABLE CHEST AP from 07/25/2021 FINDINGS: Exam is limited by overlying leads. LUNGS: Underlying emphysematous changes and scarring. No definite infiltrate although a large portio n of the left lung is obscured. No pleural abnormality seen. HEART: Normal size. pacemaker. MEDIASTINUM: Normal. BONES: Sternal wires. Degenerative changes in the shoulders. IMPRESSION: Limited exam. No acute pulmonary findings. DATA REPOSITORY: RADIATION DOSE DELIVERED:
[2021-09-28 15:02] LABS: INR 1.1 (0.9-1.1); PTT Activated 25.3 sec (21.0-27.5); Prothrombin Time 11.3 sec (9.3-11.0)
[2021-09-28 15:13] LABS: ALT 16 U/L (16-63); AST 16 U/L (15-37); Albumin 3.1 g/dL (3.4-5.0); Alkaline Phosphatase 63 U/L (46-116); Anion Gap 8.7 mmol/L (3-11); BUN 14 mg/dL (7-18); Bilirubin, Total 0.7 mg/dL (0.2-1.0); CO2 26.3 mmol/L (21.0-32.0); CREATININE 1.1 mg/dL (0.70-1.30); Calcium 8.7 mg/dL (8.5-10.1); Chloride 102 mmol/L (98-107); Glucose 408 mg/dL (74-106); Magnesium 1.6 mg/dL (1.8-2.4); NT-proBNP 470 pg/mL (<300); Potassium 4.6 mmol/L (3.5-5.1); Sodium 137 mmol/L (136-145); TSH (W/Ref FT4) 0.97 uIU/mL (0.36-3.74); Total Protein 7.2 g/dL (6.4-8.2); Troponin I < 50 ng/L (<or=60)
[2021-09-28] MEDS: LORazepam 2 MG/ML VIAL 1 MG IVP (15:35)
[2021-09-28] MEDS: MAGNESIUM SULFATE 1 GM/100 ML BAG IVPB (15:36)
[2021-09-28 16:18] LABS: *AMPHETAMINES SCREEN URINE Negative (Negative); *BARBITURATES SCREEN URINE Negative (Negative); *BENZODIAZEPINES SCREEN URINE Negative (Negative); Cannabinoids THC Negative (Negative); Cocaine Screen,Urine Negative (Negative); METHADONE URINE SCREEN Negative (Negative); OPIATES URINE SCREEN Negative (Negative)
[2021-09-28 16:21] LABS: Tricyclic Antidepressants Negative (Negative)
--- NOTE | 2021-09-28 17:18 | NUR.NOTE ---
pt anticipates transfer to [facility] . he is on the phone to friends . Nursing Note:
[2021-09-28] MEDS: Ondansetron 4 MG/2 ML VIAL (18:07)
== END 2021-09-28 17:52 | disposition short-term general hospital (02) ==
PROVIDERS: Emergency Provider Emergency Medicine; PCP Internal Medicine
DX: I47.2 Ventricular tachycardia (principal); E83.42 Hypomagnesemia; Z79.899 Other long term (current) drug therapy
CPT/HCPCS: 80053; 80307; 93005; 96361; 96365; 96375; 99285; 71045; 83735; 83880; 84443; 84484; 85025; 85610; 85730; 93010; 99284; J2060; J2405; J3475

== ENCOUNTER 2021-10-15 02:24 | Outpatient (CLI) | payer OTHER, SELFPAY ==
--- NOTE | 2021-10-15 07:01 | DI.CT_ITS ---
Exam(s) CT CHEST WO EXAM: CT CHEST WO CLINICAL HISTORY: f/u new infiltrate seen on CT,R91.8 TECHNIQUE: CT examination of the chest was performed utilizing low-dose lung cancer screening protoc ol. COMPARISON: CT CT CHEST PE CTA from 07/22/2021 FINDINGS: Images obtained through the upper abdomen show unremarkable appearance of visualized portions of the liver and spleen. There is no mediastinal or hilar adenopathy. Mediastinal vascular structures appear intact by noncon trast criteria. Tracheobronchial tree appears intact. No pleural effusion or pleural-based mass. The examination is compared with prior chest CT of July 22, multi focal consolidation noted on t he prior examination has markedly decreased on today's examination. There are small persistent areas of consolidation seen bilaterally. There are subtle diffuse ground-glass opacities bilaterally. Th ere is a left lower lobe 6 millimeter mean diameter pulmonary nodule, this may also represent sequela of prior consolidation period multiple additional areas vaguely nodular increased radiodensity are s een bilaterally.. No convincing new consolidation or mass is seen. IMPRESSION: Marked interval improvement in multifocal consolidation, however multiple areas of nonspecific ground -glass opacity and areas consolidation and nodular or masslike consolidation persists. Follow-up [facility] CT recommended in 6 months.. RADIATION DOSE DELIVERED: 439.52mGy.cm Total DLP CTDIvol 439.52mGy.cm Total DLP CTDIvol 439.52mGy.cm Total DLP !Error CTDIvol RADIATION OPTIMIZATION: All CT scans at this facility use at least one of these dose optimization te chniques: automated exposure control; mA and/or kV adjustment per patient size (includes targeted exa ms where dose is matched to clinical indication); or iterative reconstruction.
== END 2021-10-15 02:44 ==
PROVIDERS: PCP Internal Medicine; Visit Provider Student in an Organized Health Care Education/Training Program
DX: J98.4 Other disorders of lung; R91.8 Other nonspecific abnormal finding of lung field
CPT/HCPCS: 71250